=== PATIENT | male | born 1970 | race Caucasian/White ===

== ENCOUNTER 2022-12-26 18:36 | Inpatient (IN) ==
[2022-12-26] MEDS ORDERED: SODIUM CHLORIDE 0.9% 1,000 ML IV STA (19:27)
[2022-12-26] MEDS ORDERED: fentaNYL citrate PF 100 MCG/2 ML VIAL IV STA (19:27)
--- NOTE | 2022-12-26 19:31 | Emergency Department Note ---
Impression & Plan Cellulitis of scrotum, Left testicular pain, Hyperglycemia, Acute orchitis ED Provider Note HISTORY OF PRESENT ILLNESS: Patient is a 52-year-old male presenting with left testicle pain and left lower quadrant abdominal pain. Patient reports that for the last 5 days he has been having progressively worsening pain and swelling in his left testicle. He states that the pain developed all of a sudden 5 days ago. He reports that the pain was not initially intermittent in nature but since this morning has been constant and the swelling is the worst its been in the last 5 days. Reports some dysuria. Denies any hematuria. Denies any fevers. Denies any history of abdominal surgeries. Patient denies any injury to the testicles. Reports nausea but no vomiting. Denies any diarrhea. Reports his last bowel movement was 2 days ago. Denies any chest pain or shortness of breath. Patient also reports that he is diabetic and his blood sugar readings have been very high in the last 48 hours. Reports they have been over 300 in the last 12 hours. He has not taken any of his short acting insulin in that timeframe. ROS: as above PHYSICAL EXAM: Constitutional: Patient appears in no acute distress. HENT: Head: Normocephalic and atraumatic. Eyes: EOMI, PERRL Mouth/Throat: Mucous membranes moist. Neck: Trachea midline. Neck supple. Cardiovascular: Tachycardic with regular rhythm no murmurs, rubs or gallops. Intact distal pulses. Pulmonary/Chest: No respiratory distress. Breath sounds clear and equal bilaterally. No wheezes or rales. No chest wall tenderness to palpation. Abdominal: Abdomen soft, no tenderness, rebound or guarding. LLQ TTP : Circumcised male. Left testicle is swollen as compared to the right. Left testicle is significantly tender to palpation Musculoskeletal: No edema, tenderness or deformity noted. Skin: Warm and dry. No rash, erythema, pallor or cyanosis Psychiatric: Appropriate mood and affect for situation. Neurological: Alert and keenly responsive. CN II-XII grossly intact, moving all extremities equally and fully. MDM: - Vitals signs showed hypertension and tachycardia. - History obtained via patient. Patient presents with left testicle pain and left lower quadrant abdominal pain. Patient reports over the last 5 days he has been having progressively worsening pain and swelling in the left testicle. He states that the pain and swelling developed suddenly 5 days ago and is continued to worsen. He denies any hematuria, but reports intermittent dysuria over the last 5 days. Denies any fevers. Denies any history of abdominal surgeries. Denies any injury to the testicles. Reports nausea but no vomiting. Denies any diarrhea. Reports his last bowel movement was 2 days ago - Chronic conditions affecting care: DM-2 - Differential diagnoses include, but are not limited to: Testicular torsion; diverticulitis; ureteral calculi; UTI; epididymitis; scrotal cellulitis - Order placed for continuous cardiac monitoring. At this time, monitor showed rate of 112 bpm with normal sinus rhythm, per my interpretation. - External medical records reviewed. - Laboratory workup interpreted by myself showed leukocytosis (WBC 16.91); stable electrolytes; normal lactate; hyperglycemia (glucose 312); normal anion gap - US testes showed findings concerning for left-sided orchitis and scrotal wall thickening concerning for cellulitis - UA negative for infection - 2L NS ordered. Given IV zosyn for antibiotic coverage. - Patient initially given 50 mcg IV fentanyl for pain control. However on reassessment, he is still having significant pain. Given 4 mg of IV morphine. - CT abdomen/pelvis wo contrast ordered - Discussion was had with social problems specialist about patient's case and need for admission - Hospitalist consulted for admission - [facility] ASSESSMENT AND PLAN: Diagnosis: Left testicular pain; hyperglycemia; left scrotal cellulitis; left orchitis Plan: Admit Past Med/Surg History Social History Smoking Status: Former smoker Feels Safe at Home: Yes Allergies Allergies Allergy/AdvReac Type Severity Reaction Status Date / Time bee venom protein (honey bee) Allergy Severe Anaphylaxis Verified 12/26/22 19:50 Penicillins Allergy Intermediate HIVES/VOMIT Verified 12/26/22 19:50 ING Home Meds Home Medications Medication Instructions Recorded Confirmed atorvastatin 20 mg tablet 20 mg PO QAM 12/26/22 12/26/22 ibuprofen 200 mg tablet 400 mg PO DIRECTED PRN Pain 12/26/22 12/26/22 insulin aspar prot-insulin aspart 0 unit subcut BID 12/26/22 12/26/22 100 unit/mL (70-30) subcutaneous pen (Novolog Mix 70-30FlexPen U-100) lisinopril 5 mg tablet 5 mg PO QAM 12/26/22 12/26/22 mirtazapine 15 mg tablet 15 mg PO HS 12/26/22 12/26/22 pantoprazole 40 mg tablet,delayed 40 mg PO QAM 12/26/22 12/26/22 release pregabalin 75 mg capsule 75 mg PO BID 12/26/22 12/26/22 Results & Data (ED) Vital Signs Vital Signs - 24 hr 12/26/22 18:50 12/26/22 19:04 12/26/22 19:05 Temperature 37.2 C Temperature Source Temporal Artery Scan Pulse Rate 120 H 111 H Pulse Rate [Finger] 115 H Respiratory Rate 16 20 Respiratory Effort / Characteristics Non-Labored Spontaneous Non-Labored Spontaneous Respiratory Depth Normal Normal Blood Pressure 208/101 H Blood Pressure [Left Arm] 201/112 H Blood Pressure Mean 136 Blood Pressure Mean [Left Arm] 141 Blood Pressure Position [Left Arm] Pulse Oximetry 98 97 Oxygen Delivery Method Room Air Room Air Sepsis Recent Fever Within 48 Hours No Sepsis New/Unexplained Change in Mental Status No Sepsis Action Taken by Nursing No Action Required 12/26/22 19:34 12/26/22 21:05 Temperature Temperature Source Pulse Rate 115 H Pulse Rate [Finger] 112 H Respiratory Rate 27 H 20 Respiratory Effort / Characteristics Non-Labored Spontaneous Respiratory Depth Normal Blood Pressure Blood Pressure [Left Arm] 207/111 H Blood Pressure Mean Blood Pressure Mean [Left Arm] 143 Blood Pressure Position [Left Arm] Sitting Pulse Oximetry 98 93 Oxygen Delivery Method Room Air Room Air Sepsis Recent Fever Within 48 Hours Sepsis New/Unexplained Change in Mental Status Sepsis Action Taken by Nursing Laboratory Data 12/26/22 19:48 12/26/22 21:08 Lab Results 12/26/22 12/26/22 12/26/22 Range/Units 19:48 21:08 Unknown WBC 16.91 H (4.8-10.8) K/ul RBC 3.79 L (4.70-6.10) M/uL Hgb 10.5 L (14.0-18.0) g/dl Hct 31.4 L (42.0-52.0) % MCV 82.8 (80.0-100.0) fL MCH 27.7 (25.0-34.0) pg MCHC 33.4 (32.0-36.0) g/dL RDW Std Deviation 36.9 (36.4-46.3) fL RDW Coeff of Yoni 12.1 (11.5-14.5) % Plt Count 569 H (130-400) K/uL MPV 9.3 L (9.4-12.4) fL Immature Gran % (Auto) 0.4 % Neut % (Auto) 70.7 % Lymph % (Auto) 21.7 % [place]ole % (Auto) 5.7 % Eos % (Auto) 1.1 % Baso % (Auto) 0.4 % Neut # (Auto) 11.98 H (1.40-6.50) K/uL Lymph # (Auto) 3.67 H (1.20-3.40) K/uL Toole # (Auto) 0.96 H (0.11-0.59) K/uL Eos # (Auto) 0.18 (0.00-0.50) K/uL Baso # (Auto) 0.06 (0.00-0.20) K/uL Immature Gran # (Auto) 0.06 (0.01-0.20) K/uL Sodium 131 L (136-145) mmol/L Potassium TNP 4.3 Chloride 96 L (98-107) mmol/L Carbon Dioxide 29 (21-32) mmol/L Anion Gap 6 (3-11) BUN 25 H (6-23) mg/dl Creatinine 1.02 (0.6-1.4) mg/dl Est Cr Clr Drug Dosing 83.6 ml/min Est GFR ( Amer) 97.5 ml/min Est GFR (Non-Af Amer) 84.1 ml/min BUN/Creatinine Ratio 24.5 H (10-20) Glucose 312 H* (70-99(Fasting)) mg/dl Lactate 0.7 (0.4-2.0) mmol/L Calcium 9.2 (8.6-10.3) mg/dl Total Bilirubin 0.3 (0.2-1.0) mg/dl AST TNP 11 L ALT 12 (7-52) U/L Alkaline Phosphatase 149 H (34-104) U/L Total Protein 7.7 (6.0-8.3) gm/dl Albumin 3.0 L (3.4-5.0) gm/dl Globulin 4.7 H (2.5-4.0) gm/dl Albumin/Globulin Ratio 0.6 L (0.9-2) Urine Color Yellow Urine Appearance Clear (Clear) Urine pH 7.0 (4.5-7.5) Ur Specific [place] 1.017 (1.000-1.030) Urine Protein 3+ H (Negative) Urine Glucose (UA) 3+ H (Negative) Urine Ketones Negative (Negative) Urine Blood 2+ H (Negative) Urine Nitrite Negative (Negative) Urine Bilirubin Negative (Negative) Urine Urobilinogen Negative (Negative) Ur Leukocyte Esterase Negative (Negative) Urine WBC (Auto) 10-30 H (0-5) /hpf Urine RBC (Auto) 10-30 H (0-4) /hpf U Hyaline Cast (Auto) 1-5 (0-5) /lpf U Epithel Cells (Auto) 5-10 H (0-5) /lpf Urine Bacteria (Auto) Negative (Negative) Administered Medications Discontinued Medications Fentanyl Citrate (Fentanyl Citrate Pf 100 Mcg/2 Ml Vial) 50 mcg IV NOW STA Stop: 12/26/22 19:28 Last Admin: 12/26/22 19:44 Dose: 50 mcg Documented By: MARCELO Sodium Chloride (Nss) 1,000 mls @ 999 mls/hr IV .Q1H1M STA Stop: 12/26/22 20:27 Last Infusion: 12/26/22 21:14 Dose: Infused Documented By: Admin: 12/26/22 19:43 Dose: 999 mls/hr Documented By: MARCELO Insulin Human Regular (Novolin-R Insulin Per Unit Charge) 5 units SC NOW STA Stop: 12/26/22 21:51 Last Admin: 12/26/22 22:01 Dose: 5 units Documented By: MARCELO Co-signed By: ELLIOTT Morphine Sulfate (Morphine Sulfate 4 Mg/Ml 1 Ml Carp\\Vial) 4 mg IV NOW STA Stop: 12/26/22 20:38 Last Admin: 12/26/22 20:43 Dose: 4 mg Documented By: MARCELO Imaging Data Radiologist's Impression: Scrotum Ultrasound 12/26/22 19:27 Exam(s): US SCROTAL EXAM: US Scrotum CLINICAL HISTORY: Reason for exam: L testicle pain and swelling. TECHNIQUE: Real-time ultrasound of the scrotum with color Doppler and image documentation. COMPARISON: None. FINDINGS: Right testicle: There is increased flow within the right testis suggestive of orchitis. The right testis measures 3.5 x 2.5 x 2.6 cm. No torsion. Left testicle: The left testis measures 2.8 x 2.5 x 2.8 cm. No torsion. Epididymides: Within the right epididymis there is a round anechoic structure consistent with epididymal cyst measuring 0.4 x 0.3 x 0.5 cm. Scrotum: There is scrotal wall thickening with increased vascularity concerning for cellulitis, left more than right. There is mild left- sided hydrocele. There is minimal right-sided hydrocele. IMPRESSION: 1. Findings concerning for left-sided orchitis. Mild bilateral hydroceles, left more than right. 2. Scrotal wall thickening concerning for cellulitis, clinical correlation recommended. Electronically signed by: Elza Hancock MD 12/26/22 21:18 PM Discharge Plan Visit Data Chief Complaint: Testicular Pain Stated Complaint: TESTCULAR SWELLING, ABD PAIN ED Provider: Viry Barbosa Discharge Problem: Cellulitis of scrotum, Left testicular pain, Hyperglycemia, Acute orchitis Patient Disposition: Home - Self-Care Forms Stand Alone Forms: [facility], Important Visit Information Prescriptions Prescriptions: No Action atorvastatin 20 mg tablet 20 mg PO QAM pantoprazole 40 mg tablet,delayed release (DR/EC) 40 mg PO QAM ibuprofen 200 mg Tablet 400 mg PO DIRECTED PRN (Reason: Pain) lisinopril 5 mg tablet 5 mg PO QAM mirtazapine 15 mg tablet 15 mg PO HS insulin asp prt-insulin aspart [Novolog Mix 70-30FlexPen U-100] 100 unit/mL (70-30) insulin pen 0 unit SUBCUT BID Rx Instructions: PER PT "DEPENDS ON BSG, RX BSG > 120" pregabalin 75 mg capsule 75 mg PO BID Referrals Referrals: Magen Ramirez PA-C [Primary Care Provider] -
[2022-12-26] MEDS ORDERED: MoRPHine SULFATE 4 MG/ML 1 ML CARP\\VIAL IV STA (20:37)
[2022-12-26 20:43] LABS: Basophils # (auto) 0.06 K/uL (0.00-0.20); Basophils % (auto) 0.4 %; Eosinophils # (auto) 0.18 K/uL (0.00-0.50); Eosinophils % (auto) 1.1 %; Hematocrit (blood only) 31.4 % (42.0-52.0); Hemoglobin 10.5 g/dl (14.0-18.0); Immature Granulocytes # (auto) 0.06 K/uL (0.01-0.20); Immature Granulocytes % (auto) 0.4 %; Lymphocytes # (auto) 3.67 K/uL (1.20-3.40); Lymphocytes % (auto) 21.7 %; Mean Corpuscular Hemoglobin 27.7 pg (25.0-34.0); Mean Corpuscular Hgb Conc 33.4 g/dL (32.0-36.0); Mean Corpuscular Volume 82.8 fL (80.0-100.0); Mean Platelet Volume 9.3 fL (9.4-12.4); Monocytes # (auto) 0.96 K/uL (0.11-0.59); Monocytes % (auto) 5.7 %; Neutrophils # (auto) 11.98 K/uL (1.40-6.50); Neutrophils % (auto) 70.7 %; Platelet Count 569 K/uL (130-400); RDW Coefficient of Variation 12.1 % (11.5-14.5); RDW Standard Deviation 36.9 fL (36.4-46.3); Red Blood Count 3.79 M/uL (4.70-6.10); White Blood Count 16.91 K/ul (4.8-10.8)
[2022-12-26 20:47] LABS: Appearance Urine Clear (Clear); Bacteria Urine Automated Negative (Negative); Bilirubin Urine Negative (Negative); Blood Urine 2+ (Negative); Color Urine Yellow; Glucose Urine UA 3+ (Negative); Ketones Urine Negative (Negative); Leukocyte Esterase Urine Negative (Negative); Nitrite Urine Negative (Negative); Protein Urine 3+ (Negative); Specific Gravity Urine 1.017 (1.000-1.030); Urobilinogen Urine Negative (Negative)
[2022-12-26 21:12] LABS: Alanine Aminotransferase 12 U/L (7-52); Albumin Globulin Ratio 0.6 (0.9-2); Alkaline Phosphatase 149 U/L (34-104); Anion Gap 6 (3-11); BUN Creatinine Ratio 24.5 (10-20); Bilirubin,Total 0.3 mg/dl (0.2-1.0); Blood Urea Nitrogen 25 mg/dl (6-23); Calcium 9.2 mg/dl (8.6-10.3); Carbon Dioxide 29 mmol/L (21-32); Chloride 96 mmol/L (98-107); Creatinine Clr Calc Pharmacy 83.6 ml/min; Est GFR (African American) 97.5 ml/min; Est GFR (Non-African American) 84.1 ml/min; Globulin 4.7 gm/dl (2.5-4.0); Glucose 312 mg/dl (70-99(Fasting)); Sodium 131 mmol/L (136-145); Total Protein 7.7 gm/dl (6.0-8.3)
--- NOTE | 2022-12-26 21:19 | Ultrasound Report ---
Exam(s): US SCROTAL EXAM: US Scrotum CLINICAL HISTORY: Reason for exam: L testicle pain and swelling. TECHNIQUE: Real-time ultrasound of the scrotum with color Doppler and image documentation. COMPARISON: None. FINDINGS: Right testicle: There is increased flow within the right testis suggestive of orchitis. The right testis measures 3.5 x 2.5 x 2.6 cm. No torsion. Left testicle: The left testis measures 2.8 x 2.5 x 2.8 cm. No torsion. Epididymides: Within the right epididymis there is a round anechoic structure consistent with epididymal cyst measuring 0.4 x 0.3 x 0.5 cm. Scrotum: There is scrotal wall thickening with increased vascularity concerning for cellulitis, left more than right. There is mild left- sided hydrocele. There is minimal right-sided hydrocele. IMPRESSION: 1. Findings concerning for left-sided orchitis. Mild bilateral hydroceles, left more than right. 2. Scrotal wall thickening concerning for cellulitis, clinical correlation recommended. Electronically signed by: Elza Hancock MD 12/26/22 21:18 PM
[2022-12-26 21:39] LABS: Potassium 4.3 mmol/L (3.5-5.1)
[2022-12-26] MEDS ORDERED: NovoLIN-R INSULIN PER UNIT CHARGE SC STA (21:50)
[2022-12-26] MEDS ORDERED: PIPERACILLIN/TAZOBACTAM 4.5 GM/100 ML BAG IV ONE (21:50)
[2022-12-26] MEDS ORDERED: SODIUM CHLORIDE 0.9% 2,000 ML IV ONE (21:52)
[2022-12-26] MEDS ORDERED: HYDROmorphone INJ 0.5 MG/0.5 ML SYR IV STA (23:12)
--- NOTE | 2022-12-27 00:09 | CT Scan Report ---
Exam(s): CT ABDOMEN + PELVIS Without Contrast EXAM: CT Abdomen and Pelvis Without Intravenous Contrast CLINICAL HISTORY: Reason for exam: LLQ pain and left testicle pain. TECHNIQUE: Axial computed tomography images of the abdomen and pelvis without intravenous contrast. CTDI is 21.01 mGy and DLP is 1042.65 mGy-cm. Automated exposure control was utilized for the study. A dose lowering technique was utilized adhering to the principles of ALARA. COMPARISON: None. FINDINGS: Lung bases: Unremarkable. No mass. No consolidation. Heart: Unremarkable. No significant pericardial effusion. Normal cardiac size. ABDOMEN: Liver: Unremarkable. Gallbladder and bile ducts: Unremarkable. No calcified stones. No ductal dilation. Pancreas: Unremarkable. No ductal dilation. Spleen: Unremarkable. No splenomegaly. Adrenals: Unremarkable. No mass. Kidneys and ureters: Mild bilateral perinephric stranding. Mild stranding along the left renal pelvis and left ureter with mild fullness of the wall. No stone along the trajectory of the left ureter. Cannot exclude infectious process or left pyelonephritis. Stomach and bowel: Increased fecal debris within the colon consistent with constipation. No obstruction. No mucosal thickening. PELVIS: Appendix: Nonvisualized appendix with surgical clips by the cecum suggestive of previous appendectomy. Bladder: Slightly over distended urinary bladder with mild surrounding stranding, cannot exclude cystitis. No stones. Reproductive: Mild prostate enlargement. ABDOMEN and PELVIS: Intraperitoneal space: Unremarkable. No free air. No significant fluid collection. Bones/joints: No acute fracture. No dislocation. Soft tissues: Small bilateral fat-containing bilateral inguinal hernias containing fat. Vasculature: Mild atherosclerotic disease of aorta with no aneurysm. Lymph nodes: Unremarkable. No enlarged lymph nodes. IMPRESSION: 1. Constipation. Status post appendectomy. No bowel obstruction pain 2. Bilateral perinephric stranding with possible cystitis and fullness of the urothelium on the left which may indicate infectious process. Cannot exclude left pyelonephritis. If indicated, these findings may be further assessed with urinalysis. Electronically signed by: Elza Hancock MD 12/27/22 00:08 AM
[2022-12-27] MEDS ORDERED: VANCOMYCIN CONSULT ACTIVE PRN (01:25)
[2022-12-27] MEDS ORDERED: VANCOMYCIN HCL 1,000 MG in SODIUM CHLORIDE 0.9% 250 ML IV SCH (01:30)
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
[2022-12-27] MEDS: SODIUM CHLORIDE 0.9% 1,000 ML IV SCH ×2 (01:52→09:02)
[2022-12-27] MEDS ORDERED: VANCOMYCIN HCL 1,500 MG in SODIUM CHLORIDE 0.9% 500 ML IV ONE (02:00)
[2022-12-27] MEDS: HYDROmorphone INJ 0.5 MG/0.5 ML SYR IV PRN ×5 (03:49→21:11)
[2022-12-27] MEDS ORDERED: PHARMACY GLYCEMIC MGMT CONSULT PRN (04:13)
[2022-12-27] MEDS ORDERED: GLUCOSE 10 TAB/TUBE PO PRN (04:13)
[2022-12-27] MEDS ORDERED: GLUCOSE 40% GEL 15 GM TUBE PO PRN (04:13)
[2022-12-27] MEDS ORDERED: DEXTROSE 50% 50 ML SYRINGE IV PRN (04:13)
[2022-12-27] MEDS ORDERED: LABETALOL HCL IV 5 MG/ML 20ML IV PRN (04:13)
[2022-12-27] MEDS ORDERED: POLYETHYLENE (MIRALAX) 17 GM PACK PO PRN (04:13)
[2022-12-27] MEDS ORDERED: NITROGLYCERIN SL 0.4 MG/TAB TAB SL PRN (04:13)
[2022-12-27] MEDS ORDERED: CARBOHYDRATES FOR HYPOGLYCEMIA PO PRN (04:13)
[2022-12-27] MEDS ORDERED: GLUCAGON FOR INJ 1 MG VIAL SQ PRN (04:13)
[2022-12-27] MEDS: INSULIN ASPART PER UNIT CHARGE SC SCH ×4 (06:00→21:11)
[2022-12-27] MEDS: ERTAPENEM SODIUM 1,000 MG in SYRINGE 0 ML IV SCH (06:01)
[2022-12-27] MEDS ORDERED: Nursing to Pharmacy Communication SCH (06:15)
[2022-12-27] MEDS: PANTOprazole 40 MG TAB PO SCH (06:27)
[2022-12-27 08:17] LABS: Basophils # (auto) 0.05 K/uL (0.00-0.20); Basophils % (auto) 0.3 %; Eosinophils # (auto) 0.18 K/uL (0.00-0.50); Eosinophils % (auto) 1.1 %; Hematocrit (blood only) 29.7 % (42.0-52.0); Immature Granulocytes # (auto) 0.06 K/uL (0.01-0.20); Immature Granulocytes % (auto) 0.4 %; Lymphocytes # (auto) 2.87 K/uL (1.20-3.40); Lymphocytes % (auto) 17.3 %; Mean Corpuscular Hemoglobin 27.9 pg (25.0-34.0); Mean Corpuscular Hgb Conc 33.7 g/dL (32.0-36.0); Mean Platelet Volume 8.6 fL (9.4-12.4); Monocytes # (auto) 0.95 K/uL (0.11-0.59); Monocytes % (auto) 5.7 %; Neutrophils # (auto) 12.49 K/uL (1.40-6.50); Neutrophils % (auto) 75.2 %; Platelet Count 499 K/uL (130-400); RDW Coefficient of Variation 11.9 % (11.5-14.5); RDW Standard Deviation 35.9 fL (36.4-46.3); Red Blood Count 3.58 M/uL (4.70-6.10)
[2022-12-27 08:40] LABS: BUN Creatinine Ratio 20.3 (10-20); Calcium 8.4 mg/dl (8.6-10.3); Creatinine Clr Calc Pharmacy 107.9 ml/min; Est GFR (African American) 119.7 ml/min; Est GFR (Non-African American) 103.2 ml/min; Magnesium 1.7 mg/dl (1.7-2.4); Potassium 3.8 mmol/L (3.5-5.1); Troponin I High Sensitivity 12.1 pg/ml (0-20)
[2022-12-27] MEDS ORDERED: PANTOprazole 40 MG TAB PO SCH (09:00)
[2022-12-27] MEDS: lisinopril 5 MG TAB PO SCH (09:17)
[2022-12-27] MEDS: ATORVASTATIN 20 MG TAB PO SCH (09:17)
[2022-12-27] MEDS: PREGABALIN 75 MG CAP PO SCH ×2 (09:17→21:11)
[2022-12-27] MEDS: LANTUS PER UNIT CHARGE SQ SCH ×2 (09:17→21:10)
[2022-12-27] MEDS ORDERED: PROMETHAZINE HCL 6.25 MG in SODIUM CHLORIDE 0.9% 50 ML IV PRN (09:29)
--- NOTE | 2022-12-27 09:43 | Urology Consultation ---
Date of Consultation December 27, 2022 Assessment & Plan (1) Acute orchitis: (2) Left testicular pain: Plan Clinical picture is suspicious for left epididymoorchitis. Would recommend coverage with broad-spectrum antibiotics. Agree with urine culture. Once culture data becomes available, antibiotics can be narrowed to an oral option. I do not appreciate any fluctuant areas or crepitus that would require surgical intervention. Would recommend ensuring that he is emptying his bladder well with PVR after he voids. If he is retaining urine, he may require Casey catheter placement or CIC. Would recommend working on glycemic control as this could exacerbate infection. Urology will follow. History of Present Illness Reason for Consultation: Epididymoorchitis Attending Physician: Jacobo Norris MD History of Present Illness This is a 52-year-old male with history of diabetes who presented to the emergency department with scrotal swelling and pain. He reports that he was recently admitted at an outside hospital for hyperglycemia. He describes an abscess on the back of his head that was lanced at that time. Urology was consulted regarding the scrotal swelling and pain. He reports this started approximately 5 days prior to admission. He denies any inciting trauma. He notes that he has had some urinary straining and sense of incomplete emptying of the bladder. He thinks he may have had some swelling in this area before. He has no history of urologic surgery. Lab work in the ED was notable for leukocytosis (WBC 16.91), he initially had hyperglycemia (glucose 312), creatinine was 1.02. A urinalysis demonstrated 2+ blood, negative leukocyte esterase, negative nitrites, negative bacteria. Urine culture was obtained and is currently pending. A scrotal ultrasound was performed on 12/26/2022. I independently reviewed these images. Both testicles are in normal position. There is some hyperemia of the left testis with some reactive fluid on the left side. There is good blood flow to the right testicle. No testicular masses are appreciated. He also had a CT scan of the abdomen and pelvis performed on 12/26/2022. This demonstrated some perinephric stranding. No focal obstructions were seen for either kidney. His prostate was mildly enlarged. His bladder was fairly capacious. Allergies Allergy/AdvReac Type Severity Reaction Status Date / Time bee venom protein (honey bee) Allergy Severe Anaphylaxis Verified 12/26/22 19:50 Penicillins Allergy Intermediate HIVES/VOMIT Verified 12/26/22 19:50 ING Home Medications Medication Instructions Recorded Confirmed Type atorvastatin 20 mg tablet 20 mg PO QAM 12/26/22 12/26/22 History ibuprofen 200 mg tablet 400 mg PO DIRECTED PRN Pain 12/26/22 12/26/22 History insulin aspar prot-insulin aspart 0 unit subcut BID 12/26/22 12/26/22 History 100 unit/mL (70-30) subcutaneous pen (Novolog Mix 70-30FlexPen U-100) lisinopril 5 mg tablet 5 mg PO QAM 12/26/22 12/26/22 History mirtazapine 15 mg tablet 15 mg PO HS 12/26/22 12/26/22 History pantoprazole 40 mg tablet,delayed 40 mg PO QAM 12/26/22 12/26/22 History release pregabalin 75 mg capsule 75 mg PO BID 12/26/22 12/26/22 History Patient History Social History Smoking Status: Former smoker Tobacco Type: Cigarettes Hx Alcohol Use: Yes Hx Substance Use: No Preferred Language: Lao Communication Ability: Effective Silviculture Professor Required: No Beliefs That Will Affect Care: None Current Living Situation: Significant Other Other Information That Helps Us Care for You: No Feels Safe at Home: Yes Safety Concerns: Feels Safe At This Time Assistive Devices: None Review of Systems Review of Systems: 12 point review of systems negative exce pt for otherwise indicated. Physical Exam Constitutional: well developed and well nourished; no acute distress Eyes: + anicteric sclerae; pupils not irregula r Respiratory: normal respiratory effort; no respiratory distress, does not use accessory muscles and no cough Cardiovascular: well perfused Gastrointestinal (Abdomen): Inspection/Auscultation: abdomen normal to inspection; abdomen not distended Musculoskeletal: Extremities: extremities normal to inspection Skin: normal turgor; no rashes and no lesions Neurologic: moves all extremities and awake Psychiatric: Orientation: alert and oriented x 3 Genitourinary: No inguinal adenopathy bilaterally. Left hemiscrotum is enlarged and slightly erythematous. This area is tender to palpation. I do not appreciate any fluc tuance or crepitus. There is some penile edema. Right testis is normal and minimally tender. Results & Data Vital Signs (Past 12 Hours) Vital Signs Temp Pulse Pulse Resp BP Pulse Ox O2 Del Method 12/27/22 06:59 109 H 12/27/22 06:14 36.9 C 106 H 20 164/93 H 96 Room Air 12/27/22 05:28 95 H 20 180/112 H 95 Room Air 12/27/22 04:26 101 H 20 175/110 H 94 Room Air 12/27/22 03:15 103 H 20 173/92 H 96 Room Air 12/27/22 01:43 108 H 20 171/96 H 96 Room Air 12/26/22 23:03 113 H 20 179/103 H 96 Room Air 12/26/22 23:00 104 H PG Care Time/CCT Total # of Minutes Spent Total Time Spent with Patient: Total time spent is greater than 50% in coordination of care (as documented) at patient's floor/unit and/or counseling patient: Coding Level of Care Code 22550 IN/OBS CONSULT LVL 4,60M Diagnoses Acute orchitis N45.2 Left testicular pain N50.812
--- NOTE | 2022-12-27 11:37 | Pharmacy Report ---
Pharmacy PK ABX Note - Date of Service December 27, 2022 - Assessment and Plan Assessment 52 year old M receiving ertapenem and vancomycin for treatment of scrotal cellulitis, epididymoorchitis. Pertinent microbiologic data includes: urine culture pending Plan Vancomycin * Loading dose: 1500 mg IV x 1 * Maintenance dose: 1250 mg IV every 12 hours * Regimen is predicted to achieve target AUC/ROZ of 400-600 mg/L.hr * Random level ordered for tomorrow after 0800 Pharmacy will continue to follow and will adjust dose/frequency as necessary. Thank you. Pharmacy has transitioned to AUC monitoring for vancomycin. AUC/ROZ is the preferred PK/PD target and is associated with decreased risk of nephrotoxicity compared to traditional trough targets.
[2022-12-27] MEDS: VANCOMYCIN HCL 1,250 MG in SODIUM CHLORIDE 0.9% 250 ML IV SCH (12:19)
--- NOTE | 2022-12-27 14:48 | Communication Note ---
Date of Service: December 27, 2022 Patient seen and examined at bedside. He reports pain and discomfort in the scrotum patient Urine culture does not show any growth Continue on ertapenem and vancomycin. Urology recommendation appreciated. Bladder scan every 8 hours for postvoid residual.
[2022-12-27] MEDS ORDERED: traZODone HCL 50 MG TAB PO ONE (20:08)
[2022-12-27] MEDS: MIRTAZAPINE TAB 15 MG TAB PO SCH (21:11)
[2022-12-28] MEDS: HYDROmorphone INJ 0.5 MG/0.5 ML SYR IV PRN ×6 (00:28→20:43)
[2022-12-28] MEDS: VANCOMYCIN HCL 1,250 MG in SODIUM CHLORIDE 0.9% 250 ML IV SCH (00:28)
[2022-12-28] MEDS: PANTOprazole 40 MG TAB PO SCH (04:52)
[2022-12-28] MEDS: ERTAPENEM SODIUM 1,000 MG in SYRINGE 0 ML IV SCH (04:53)
[2022-12-28] MEDS: ATORVASTATIN 20 MG TAB PO SCH (08:29)
[2022-12-28] MEDS: PREGABALIN 75 MG CAP PO SCH ×2 (08:29→20:43)
[2022-12-28] MEDS: lisinopril 5 MG TAB PO SCH (08:29)
[2022-12-28] MEDS: INSULIN ASPART PER UNIT CHARGE SC SCH ×4 (08:30→20:43)
[2022-12-28] MEDS: LANTUS PER UNIT CHARGE SQ SCH ×2 (08:30→20:42)
[2022-12-28 08:49] LABS: Estimated Average Glucose 364 mg/dl; Hemoglobin A1C 14.3 % (4.5-5.6)
[2022-12-28 09:15] LABS: Creatinine Clr Calc Pharmacy 98.4 ml/min; Est GFR (African American) 114.5 ml/min; Est GFR (Non-African American) 98.8 ml/min
--- NOTE | 2022-12-28 10:14 | Pharmacy Report ---
Pharmacy PK ABX Note - Date of Service December 28, 2022 - Assessment and Plan Assessment 12/28: * Random vancomycin level this AM was ~15 mcg/ml - based upon level current vancomycin dosing is appropriate to continue 12/27: * 52 year old M receiving ertapenem and vancomycin for treatment of scrotal cellulitis, epididymoorchitis. * Pertinent microbiologic data includes: urine culture pending Plan Vancomycin * Continue vancomycin 1250 mg iv q 12 hr * Dosing estimated to achieve AUC/ROZ of 400-600 * Will consider rechecking another level in next 2-3 days if continued Pharmacy will continue to follow and will adjust dose/frequency as necessary. Thank you. Pharmacy has transitioned to AUC monitoring for vancomycin. AUC/ROZ is the preferred PK/PD target and is associated with decreased risk of nephrotoxicity compared to traditional trough targets.
[2022-12-28] MEDS ORDERED: DOXYCYCLINE HYCLATE 100 MG CAP PO SCH (10:15)
--- NOTE | 2022-12-28 10:22 | Pharmacy Report ---
Pharmacy Glycemic Short Note 2 - Date of Service December 28, 2022 - Glycemic Short BSG Results (Last 24 hours): 12/27/22 12/27/22 12/27/22 14:12 16:44 20:07 POC Glucose 164 H 174 H 165 H 12/28/22 08:14 POC Glucose 150 H OUTPATIENT ANTIDIABETIC REGIMEN: * Novolog mix 70/30 - 30 units bidm - per external fill hx ASSESSMENT: * 52 year old admitted with scrotal cellulitis, started on broad spectrum antibiotics. Pharmacy consulted for glycemic management. Discussed with patient home insulin dosing and he reports taking insulin per scale provided by his provider, however he does not remember scale. He was able to tell me if BSG >300 he takes 35 units and BSG>350 he takes 40 units. * Started patient with stress of 2 dosing for insulin, received total of 33 units of insulin yesterday. * Fasting BSG 150, reasonable to continue same basal for now. Anticipate insulin needs to increase once PO intake improves. A1c ~14.3% on admission. PLAN FOR INPATIENT GLYCEMIC CONTROL: * Hold outpatient oral diabetes medications * Basal insulin * Lantus 15 units SQ BID * Bolus insulin * NovoLog per scale ACHS or Q6hrs while NPO * Goal Range: Low 110 mg/dL - High 140 mg/dL * Correction Factor: 30 mg/dL/unit * Nutritional / Prandial insulin per carb ratio of 1 unit per 10 grams CHO consumed
--- NOTE | 2022-12-28 12:33 | Urology Progress Note ---
Date of Service December 28, 2022 Assessment & Plan (1) Acute orchitis: (2) Left testicular pain: Plan Left epididymoorchitis/scrotal cellulitis - gradually improving with antibiotics. Remains afebrile and hemodynamically stable. No fluctuant areas or crepitus that would require surgical intervention appreciated on exam. Would recommend ensuring that he is emptying his bladder well with PVR after he voids. If he is retaining urine, he may require Casey catheter placement or CIC. Continue supportive care and antibiotic therapy. He can try a cold pack to help with pain and scrotal elevation to help with any edema. Urology will follow. Admission and Anticipated Discharge Date Admission Date: December 27, 2022 Subjective Pt examined at bedside this AM. Awake, resting in bed on arrival. No acute distress. No fevers. Still with scrotal/testicular pain and left groin pain. Voiding spontaneously. Denies hematuria or dysuria. Review of Systems Constitutional: as per Subjective / HPI Genitourinary: + as per Subjective / HPI Physical Exam Constitutional: well developed and well nourished; no acute distress Respiratory: normal respiratory effort; no respiratory distress and no labored breathing Gastrointestinal (Abdomen): Inspection/Auscultation: abdomen normal to inspection; abdomen not distended Neurologic: moves all extremities and awake Psychiatric: Orientation: alert and oriented x 3 Genitourinary: Left hemiscrotum is enlarged and slightly erythematous. This area is tender to palpation. No fluctuance or crepitus appreciated. There is some penile edema. Right testis minimally tender. No open areas or drainage. Results & Data Vital Signs (Past 12 Hours) Vital Signs Temp Pulse Pulse Resp BP Pulse Ox O2 Del Method 12/28/22 11:46 36.8 C 99 H 16 128/78 97 Room Air 12/28/22 07:59 36.8 C 101 H 16 137/78 97 Room Air 12/28/22 07:24 92 H 12/28/22 03:17 37.0 C 101 H 18 134/76 97 Room Air PG Care Time/CCT Total # of Minutes Spent Total Time Spent with Patient: Total time spent is greater than 50% in coordination of care (as documented) at patient's floor/unit and/or counseling patient: Coding Level of Care Code 76421 SUB INP/OBS CARE 2/35MIN Diagnoses Acute orchitis N45.2 Left testicular pain N50.812
--- NOTE | 2022-12-28 13:47 | Hospitalist Progress Note ---
Date of Service December 28, 2022 Assessment & Plan (1) Cellulitis of scrotum: Plan: 52-year-old male with past med history significant for type 2 diabetes diabetic retinopathy, diabetic neuropathy, COPD, hypertension, GERD, cannabis use with anxiety disorder, PTSD, history of depression with suicidal ideation, antisocial personality disorder presents with left scrotal swelling going on since last Wednesday. Cellulitis of the scrotum Left-sided epididymoorchitis Patient presented to the hospital with left scrotal swelling for several days No history of recent UTI. Not sexually active for last 2 years Scrotal ultrasound shows findings consistent with left-sided orchitis and scrotal wall thickening concerning for cellulitis CT abdomen pelvis personally reviewed; concern for possible cystitis. Urine culture no growth Was initially on ertapenem and Vanco. Switched over to ceftriaxone and doxycycline Continue bladder scan postvoid We will get infectious disease eval as patient reports increasing scrotal swelling despite being on antibiotics Appreciate urology recommendation Type II diabetes home NovoLog 70/30 mix on hold On Lantus 15 units twice daily as patient currently n.p.o. Sliding scale Glycemic pharmacy consult Hypertension Continue lisinopril Elevated Labetalol as needed Hyperlipidemia On statin GERD On Protonix Diabetic neuropathy On pregabalin Depression Anxiety PTSD On Remeron DVT prophylaxis SCDs for now Disposition med/telemetry Full code Please note the above document was generated using voice recognition software. It may contain grammatical, syntax or spelling errors. Any formal questions or concerns about the content, text or information contained within the body of this dictation should be directly addressed to the provider for clarification Admission and Anticipated Discharge Date Admission Date: December 27, 2022 Subjective Patient seen and examined at bedside. He reports that the swelling has actually progressed compared to yesterday. He reports increasing pain. Review of Systems Review of Systems: All systems reviewed & are unremarkable except as noted in Subjective Physical Exam Physical Exam: General- Not in distress Head- atraumatic Eyes- PERRL. ENT- oropharynx clear Neck- supple, no JVD. Lungs- clear to auscultation no wheezing or crackles. Heart- regular rhythm; no murmur, no gallop. Abdomen- normal bowel sounds, soft, diffuse discomfort, no distension. Extremities- no pretibial edema, no erythema seen. Neuro- alert, oriented x 3; PERRL, no facial palsy; no dysarthria; moves extremities. : Left scrotum swollen and hard and tender to palpation. Results & Data Results & Data Vital Signs (Past 12 Hours) Vital Signs Temp Pulse Pulse Resp BP Pulse Ox O2 Del Method 12/28/22 11:46 36.8 C 99 H 16 128/78 97 Room Air 12/28/22 07:59 36.8 C 101 H 16 137/78 97 Room Air 12/28/22 07:24 92 H 12/28/22 03:17 37.0 C 101 H 18 134/76 97 Room Air Laboratory Results Laboratory Results WBC 16.60 K/ul (4.8-10.8) H 12/27/22 07:54 RBC 3.58 M/uL (4.70-6.10) L 12/27/22 07:54 Hgb 10.0 g/dl (14.0-18.0) L 12/27/22 07:54 Hct 29.7 % (42.0-52.0) L 12/27/22 07:54 MCV 83.0 fL (80.0-100.0) 12/27/22 07:54 MCH 27.9 pg (25.0-34.0) 12/27/22 07:54 MCHC 33.7 g/dL (32.0-36.0) 12/27/22 07:54 RDW Std Deviation 35.9 fL (36.4-46.3) L 12/27/22 07:54 RDW Coeff of Yoni 11.9 % (11.5-14.5) 12/27/22 07:54 Plt Count 499 K/uL (130-400) H 12/27/22 07:54 MPV 8.6 fL (9.4-12.4) L 12/27/22 07:54 Immature Gran % (Auto) 0.4 % 12/27/22 07:54 Neut % (Auto) 75.2 % 12/27/22 07:54 Lymph % (Auto) 17.3 % 12/27/22 07:54 Drew % (Auto) 5.7 % 12/27/22 07:54 Eos % (Auto) 1.1 % 12/27/22 07:54 Baso % (Auto) 0.3 % 12/27/22 07:54 Neut # (Auto) 12.49 K/uL (1.40-6.50) H 12/27/22 07:54 Lymph # (Auto) 2.87 K/uL (1.20-3.40) 12/27/22 07:54 Drew # (Auto) 0.95 K/uL (0.11-0.59) H 12/27/22 07:54 Eos # (Auto) 0.18 K/uL (0.00-0.50) 12/27/22 07:54 Baso # (Auto) 0.05 K/uL (0.00-0.20) 12/27/22 07:54 Immature Gran # (Auto) 0.06 K/uL (0.01-0.20) 12/27/22 07:54 Sodium 137 mmol/L (136-145) 12/27/22 07:54 Potassium 3.8 mmol/L (3.5-5.1) 12/27/22 07:54 Chloride 104 mmol/L (98-107) 12/27/22 07:54 Carbon Dioxide 28 mmol/L (21-32) 12/27/22 07:54 Anion Gap 5 (3-11) 12/27/22 07:54 BUN 16 mg/dl (6-23) 12/27/22 07:54 Creatinine 0.88 mg/dl (0.6-1.4) 12/28/22 08:23 Est Cr Clr Drug Dosing 98.4 ml/min 12/28/22 08:23 Est GFR ( Amer) 114.5 ml/min 12/28/22 08:23 Est GFR (Non-Af Amer) 98.8 ml/min 12/28/22 08:23 BUN/Creatinine Ratio 20.3 (10-20) H 12/27/22 07:54 Glucose 146 mg/dl (70-99(Fasting)) H 12/27/22 07:54 POC Glucose 137 mg/dl (70-99) H 12/28/22 12:02 Estimat Average Glucose 364 mg/dl 12/27/22 07:54 Hemoglobin A1c 14.3 % (4.5-5.6) H 12/27/22 07:54 Lactate 0.7 mmol/L (0.4-2.0) 12/26/22 21:08 Calcium 8.4 mg/dl (8.6-10.3) L 12/27/22 07:54 Magnesium 1.7 mg/dl (1.7-2.4) 12/27/22 07:54 Total Bilirubin 0.3 mg/dl (0.2-1.0) 12/26/22 19:48 AST 11 U/L (13-39) L 12/26/22 21:08 ALT 12 U/L (7-52) 12/26/22 19:48 Alkaline Phosphatase 149 U/L (34-104) H 12/26/22 19:48 Troponin I High Sens 12.1 pg/ml (0-20) 12/27/22 07:54 Total Protein 7.7 gm/dl (6.0-8.3) 12/26/22 19:48 Albumin 3.0 gm/dl (3.4-5.0) L 12/26/22 19:48 Globulin 4.7 gm/dl (2.5-4.0) H 12/26/22 19:48 Albumin/Globulin Ratio 0.6 (0.9-2) L 12/26/22 19:48 Urine Color Yellow 12/26/22 Unknown Urine Appearance Clear (Clear) 12/26/22 Unknown Urine pH 7.0 (4.5-7.5) 12/26/22 Unknown Ur Specific [place] 1.017 (1.000-1.030) 12/26/22 Unknown Urine Protein 3+ (Negative) H 12/26/22 Unknown Urine Glucose (UA) 3+ (Negative) H 12/26/22 Unknown Urine Ketones Negative (Negative) 12/26/22 Unknown Urine Blood 2+ (Negative) H 12/26/22 Unknown Urine Nitrite Negative (Negative) 12/26/22 Unknown Urine Bilirubin Negative (Negative) 12/26/22 Unknown Urine Urobilinogen Negative (Negative) 12/26/22 Unknown Ur Leukocyte Esterase Negative (Negative) 12/26/22 Unknown Urine WBC (Auto) 10-30 /hpf (0-5) H 12/26/22 Unknown Urine RBC (Auto) 10-30 /hpf (0-4) H 12/26/22 Unknown U Hyaline Cast (Auto) 1-5 /lpf (0-5) 12/26/22 Unknown U Epithel Cells (Auto) 5-10 /lpf (0-5) H 12/26/22 Unknown Urine Bacteria (Auto) Negative (Negative) 12/26/22 Unknown Random Vancomycin 15.3 mcg/ml (10-20) 12/28/22 08:23 Impressions Scrotum Ultrasound 12/26/22 19:27 Exam(s): US SCROTAL EXAM: US Scrotum CLINICAL HISTORY: Reason for exam: L testicle pain and swelling. TECHNIQUE: Real-time ultrasound of the scrotum with color Doppler and image documentation. COMPARISON: None. FINDINGS: Right testicle: There is increased flow within the right testis suggestive of orchitis. The right testis measures 3.5 x 2.5 x 2.6 cm. No torsion. Left testicle: The left testis measures 2.8 x 2.5 x 2.8 cm. No torsion. Epididymides: Within the right epididymis there is a round anechoic structure consistent with epididymal cyst measuring 0.4 x 0.3 x 0.5 cm. Scrotum: There is scrotal wall thickening with increased vascularity concerning for cellulitis, left more than right. There is mild left- sided hydrocele. There is minimal right-sided hydrocele. IMPRESSION: 1. Findings concerning for left-sided orchitis. Mild bilateral hydroceles, left more than right. 2. Scrotal wall thickening concerning for cellulitis, clinical correlation recommended. Electronically signed by: Elza Hancock MD 12/26/22 21:18 PM Abdomen/Pelvis CT 12/26/22 20:55 Exam(s): CT ABDOMEN + PELVIS Without Contrast EXAM: CT Abdomen and Pelvis Without Intravenous Contrast CLINICAL HISTORY: Reason for exam: LLQ pain and left testicle pain. TECHNIQUE: Axial computed tomography images of the abdomen and pelvis without intravenous contrast. CTDI is 21.01 mGy and DLP is 1042.65 mGy-cm. Automated exposure control was utilized for the study. A dose lowering technique was utilized adhering to the principles of ALARA. COMPARISON: None. FINDINGS: Lung bases: Unremarkable. No mass. No consolidation. Heart: Unremarkable. No significant pericardial effusion. Normal cardiac size. ABDOMEN: Liver: Unremarkable. Gallbladder and bile ducts: Unremarkable. No calcified stones. No ductal dilation. Pancreas: Unremarkable. No ductal dilation. Spleen: Unremarkable. No splenomegaly. Adrenals: Unremarkable. No mass. Kidneys and ureters: Mild bilateral perinephric stranding. Mild stranding along the left renal pelvis and left ureter with mild fullness of the wall. No stone along the trajectory of the left ureter. Cannot exclude infectious process or left pyelonephritis. Stomach and bowel: Increased fecal debris within the colon consistent with constipation. No obstruction. No mucosal thickening. PELVIS: Appendix: Nonvisualized appendix with surgical clips by the cecum suggestive of previous appendectomy. Bladder: Slightly over distended urinary bladder with mild surrounding stranding, cannot exclude cystitis. No stones. Reproductive: Mild prostate enlargement. ABDOMEN and PELVIS: Intraperitoneal space: Unremarkable. No free air. No significant fluid collection. Bones/joints: No acute fracture. No dislocation. Soft tissues: Small bilateral fat-containing bilateral inguinal hernias containing fat. Vasculature: Mild atherosclerotic disease of aorta with no aneurysm. Lymph nodes: Unremarkable. No enlarged lymph nodes. IMPRESSION: 1. Constipation. Status post appendectomy. No bowel obstruction pain 2. Bilateral perinephric stranding with possible cystitis and fullness of the urothelium on the left which may indicate infectious process. Cannot exclude left pyelonephritis. If indicated, these findings may be further assessed with urinalysis. Electronically signed by: Elza Hancock MD 12/27/22 00:08 AM
[2022-12-28] MEDS: levoFLOXacin/D5W 750 MG/150 ML BAG IV SCH (16:47)
--- NOTE | 2022-12-28 16:49 | Electrocardiogram Report ---
Test Reason : Blood Pressure : / mmHG Vent. Rate : 107 BPM Atrial Rate : 107 BPM P-R Int : 174 ms QRS Dur : 088 ms QT Int : 324 ms P-R-T Axes : 051 045 049 degrees QTc Int : 432 ms Sinus tachycardia Otherwise normal ECG No previous ECGs available Confirmed by Xu Dobbins ([id number]) on 12/28/2022 4:49:06 PM Referred By: REFERRED SELF Confirmed By:Xu Dobbins
[2022-12-28] MEDS ORDERED: HYDROCODONE/ACETAMOPHEN 5/325MG TAB PO PRN (19:32)
--- NOTE | 2022-12-28 20:36 | Infectious Disease Consult ---
Date of Service December 28, 2022 Telehealth Information I performed this visit using a real-time telehealth connection between my location and the patients location ([facility]). After connecting through interactive tele-video, patient was identified by name and date of and/or wristband check.Patient (or authorized healthcare bottling equipment sales representative) was informed that this was a telemedicine visit and it was being conducted confidentially over secure lines. My office door was closed and no one else was present in the room with me.Patient (or authorized healthcare bottling equipment sales representative) provided consent to proceed with the visit, expressed an understanding of privacy and security of the telemedicine visit, and gave permission to have a hospital bottling equipment sales representative in the room in order to assist with the visit and to conduct portions of the visit, as needed. I informed the patient (or authorized healthcare bottling equipment sales representative) that I reviewed their record and presented the opportunity for them to ask any questions regarding the visit today. The patient agreed to participate. Assessment & Plan (1) Acute orchitis: (2) Cellulitis of scrotum: Plan 1) Please discontinue all current antibiotics and start on IV Levofloxacin 750 mg daily. There is no concern for STI related infection at this age and with no Hx of sexual encounters for over 2 years. 2) When he starts to feel better in terms of pain and the cellulitis improves, consider changing IV levofloxacin to oral Levofloxacin 750 mg daily. 3) Thank you for consulting infectious disease. We will continue to follow. History of Present Illness History of Present Illness Mr. Rodgers is a 52-year-old man with medical history of type 2 diabetes, COPD, HTN, GERD, anxiety disorder/PTSD/major depressive disorder with suicidal ideation, and antisocial personality disorder who was admitted to [facility] on 12/27 because of left scrotal swelling. He mentioned that he started having pain in his left scrotum around 1 week prior to presentation which was associated with difficulty urinating and burning on micturition. The pain was radiating into his lower abdomen. On presentation, he was tachycardic at 106, hypertensive and 164/93 but afebrile. Initial blood workup showed leukocytosis of around 17 (ANC 11.9) as well as hyponatremia with mildly elevated alkaline phosphatase. His urine showed 10-30 WBCs, 5-10 epithelial cells with no bacteria. Urine culture came back as negative. Ultrasound of the scrotum was concerning for left-sided orchitis associated with cellulitis. The CT abdomen and pelvis showed bilateral perinephric stranding with possible cystitis. Id team was consulted for further recommendations and to help with the management of scrotal cellulitis. Allergies Allergy/AdvReac Type Severity Reaction Status Date / Time bee venom protein (honey bee) Allergy Severe Anaphylaxis Verified 12/26/22 19:50 Penicillins Allergy Intermediate HIVES/VOMIT Verified 12/26/22 19:50 ING Home Medications Medication Instructions Recorded Confirmed Type atorvastatin 20 mg tablet 20 mg PO QAM 12/26/22 12/26/22 History ibuprofen 200 mg tablet 400 mg PO DIRECTED PRN Pain 12/26/22 12/26/22 History insulin aspar prot-insulin aspart 0 unit subcut BID 12/26/22 12/26/22 History 100 unit/mL (70-30) subcutaneous pen (Novolog Mix 70-30FlexPen U-100) lisinopril 5 mg tablet 5 mg PO QAM 12/26/22 12/26/22 History mirtazapine 15 mg tablet 15 mg PO HS 12/26/22 12/26/22 History pantoprazole 40 mg tablet,delayed 40 mg PO QAM 12/26/22 12/26/22 History release pregabalin 75 mg capsule 75 mg PO BID 12/26/22 12/26/22 History Patient History Social History Smoking Status: Former smoker Tobacco Type: Cigarettes Hx Alcohol Use: Yes Hx Substance Use: No Preferred Language: Vietnamese Communication Ability: Effective Energy Specialist Required: No Beliefs That Will Affect Care: None Current Living Situation: Significant Other Feels Safe at Home: Yes Assistive Devices: None Review of Systems Constitutional:fatigue, but no fever or chills HEENT:no sore throat, no nasal discharge Cardiovascular:no chest pain, or palpitations Respiratory:no shortness of breath, no cough Gastrointestinal:no abdominal pain, nausea or vomiting :Lt scrotal pain Musculoskeletal/Skin: no body aches or rash Neurologic: No Headache, no dizziness Physical Exam Couldn't be performed as the consult was performed via telemed. Results & Data Vital Signs (Past 12 Hours) Vital Signs Temp Pulse Resp BP Pulse Ox O2 Del Method 12/28/22 19:28 36.9 C 106 H 18 124/72 90 Room Air 12/28/22 15:53 37.2 C 70 16 156/80 H 97 Room Air 12/28/22 11:46 36.8 C 99 H 16 128/78 97 Room Air Laboratory Results Microbiology: 12/26: Urine culture negative (final) Diagnostic Findings Scrotal US on 12/26: 1. Findings concerning for left-sided orchitis. Mild bilateral hydroceles, left more than right. 2. Scrotal wall thickening concerning for cellulitis, clinical correlation recommended.
[2022-12-28] MEDS: ACETAMINOPHEN 325 MG TAB PO PRN (20:43)
[2022-12-28] MEDS: MIRTAZAPINE TAB 15 MG TAB PO SCH (20:43)
[2022-12-29] MEDS: HYDROmorphone INJ 0.5 MG/0.5 ML SYR IV PRN ×2 (04:15→15:15)
[2022-12-29] MEDS: PANTOprazole 40 MG TAB PO SCH (04:16)
[2022-12-29] MEDS ORDERED: cefTRIAXone SODIUM 2,000 MG in DEXTROSE 5 % MINI-B 50 ML IV SCH (06:00)
[2022-12-29] MEDS ORDERED: MAGNESIUM HYDROXIDE SUSP 30 ML UDC PO ONE (07:58)
[2022-12-29 08:03] LABS: Basophils # (auto) 0.03 K/uL (0.00-0.20); Basophils % (auto) 0.2 %; Eosinophils # (auto) 0.14 K/uL (0.00-0.50); Hematocrit (blood only) 29.8 % (42.0-52.0); Immature Granulocytes # (auto) 0.07 K/uL (0.01-0.20); Immature Granulocytes % (auto) 0.5 %; Lymphocytes # (auto) 3.23 K/uL (1.20-3.40); Lymphocytes % (auto) 23.8 %; Mean Corpuscular Hemoglobin 27.9 pg (25.0-34.0); Mean Corpuscular Hgb Conc 33.6 g/dL (32.0-36.0); Mean Platelet Volume 8.6 fL (9.4-12.4); Monocytes # (auto) 1.15 K/uL (0.11-0.59); Monocytes % (auto) 8.5 %; Neutrophils # (auto) 8.94 K/uL (1.40-6.50); Platelet Count 427 K/uL (130-400); RDW Coefficient of Variation 11.9 % (11.5-14.5); RDW Standard Deviation 36.6 fL (36.4-46.3); Red Blood Count 3.59 M/uL (4.70-6.10); White Blood Count 13.56 K/ul (4.8-10.8)
[2022-12-29 08:41] LABS: BUN Creatinine Ratio 19.5 (10-20); Calcium 8.4 mg/dl (8.6-10.3); Creatinine Clr Calc Pharmacy 76.4 ml/min; Est GFR (African American) 86.1 ml/min; Est GFR (Non-African American) 74.3 ml/min; Potassium 3.9 mmol/L (3.5-5.1)
[2022-12-29] MEDS: INSULIN ASPART PER UNIT CHARGE SC SCH ×4 (09:49→21:03)
[2022-12-29] MEDS: LANTUS PER UNIT CHARGE SQ SCH ×2 (09:50→21:05)
[2022-12-29] MEDS: POLYETHYLENE (MIRALAX) 17 GM PACK PO SCH (09:53)
[2022-12-29] MEDS: ATORVASTATIN 20 MG TAB PO SCH (09:54)
[2022-12-29] MEDS: lisinopril 5 MG TAB PO SCH (09:54)
[2022-12-29] MEDS: PREGABALIN 75 MG CAP PO SCH ×2 (09:54→21:04)
[2022-12-29] MEDS: ACETAMINOPHEN 325 MG TAB PO PRN ×2 (10:43→15:15)
[2022-12-29] MEDS: oxyCODONE HCL IR 5 MG TAB (IMMEDIATE RELEASE) PO PRN ×2 (10:43→21:04)
--- NOTE | 2022-12-29 11:19 | Urology Progress Note ---
Date of Service December 29, 2022 Assessment & Plan (1) Acute orchitis: (2) Left testicular pain: Plan Left epididymoorchitis/scrotal cellulitis - gradually improving with antibiotics. Remains afebrile, labs reviewed - WBC 13.56, Hemoglobin 10.0, Creatinine 1.13. Scrotal ultrasound findings consistent with left-sided orchitis and scrotal wall thickening concerning for cellulitis. CT abdomen pelvis with concern for possible cystitis. Urine culture was negative. No fluctuant areas or crepitus that would require surgical intervention appreciated on exam. Infectious disease consulted. Recommended changing to IV Levofloxacin. Voiding spontaneously. Continue to monitor. Bladder scan as needed Continue supportive care and antibiotic therapy. Recommend bowel regimen. He can try a cold pack to help with pain, scrotal elevation to help with any edema, and scrotal support. Urology will follow. Admission and Anticipated Discharge Date Admission Date: December 27, 2022 Subjective Pt examined at bedside this AM. Awake, resting in bed on arrival. No acute distress. No fevers. Still with scrotal/testicular pain and left groin pain. Voiding spontaneously. Denies hematuria or dysuria. Tolerating diet. No nausea/vomiting. Patient reports last BM was 1 week ago. Review of Systems Constitutional: as per Subjective / HPI Gastrointestinal: as per Subjective / HPI Genitourinary: + as per Subjective / HPI Physical Exam Constitutional: well developed and well nourished; no acute distress Respiratory: normal respiratory effort; no respiratory distress and no labored breathing Gastrointestinal (Abdomen): Inspection/Auscultation: abdomen normal to inspection; abdomen not distended Neurologic: moves all extremities and awake Psychiatric: Orientation: alert and oriented x 3 Genitourinary: Left hemiscrotum is enlarged and erythematous. This area is tender to palpation. No fluctuance or crepitus appreciated. There is some penile edema. Right testis minimally tender. No open areas or drainage. Results & Data Vital Signs (Past 12 Hours) Vital Signs Temp Pulse Pulse Resp BP Pulse Ox O2 Del Method 12/29/22 07:44 37.0 C 106 H 16 157/92 H 95 Room Air 12/29/22 07:29 106 H 12/28/22 23:13 36.3 C L 105 H 18 119/72 97 Room Air PG Care Time/CCT Total # of Minutes Spent Total Time Spent with Patient: Total time spent is greater than 50% in coordination of care (as documented) at patient's floor/unit and/or counseling patient: Coding Level of Care Code 27784 SUB INP/OBS CARE 2/35MIN Diagnoses Acute orchitis N45.2 Left testicular pain N50.812
--- NOTE | 2022-12-29 12:47 | Hospitalist Progress Note ---
Date of Service December 29, 2022 Assessment & Plan (1) Cellulitis of scrotum: Plan: 52-year-old male with past med history significant for type 2 diabetes diabetic retinopathy, diabetic neuropathy, COPD, hypertension, GERD, cannabis use with anxiety disorder, PTSD, history of depression with suicidal ideation, antisocial personality disorder presents with left scrotal swelling going on since last Wednesday. Cellulitis of the scrotum Left-sided epididymoorchitis Patient presented to the hospital with left scrotal swelling for several days No history of recent UTI. Not sexually active for last 2 years Scrotal ultrasound shows findings consistent with left-sided orchitis and scrotal wall thickening concerning for cellulitis CT abdomen pelvis personally reviewed; concern for possible cystitis. Urine culture no growth EKG reviewed personally; sinus tachycardia with heart rate of 107. QTc of 432 Discussed with infectious disease; patient switched over to Levaquin. Continue Levaquin IV once a day; plan to switch over to oral Levaquin after patient is clinically better. Type II diabetes home NovoLog 70/30 mix on hold On Lantus 15 units twice daily Sliding scale Glycemic pharmacy consult Hypertension Continue lisinopril Hyperlipidemia On statin GERD On Protonix Diabetic neuropathy On pregabalin Depression Anxiety PTSD On Remeron DVT prophylaxis Lovenox Disposition -patient continues to be hospitalized for need of IV antibiotics for left-sided Left-sided epididymoorchitis and scrotal cellulitis. Full code Please note the above document was generated using voice recognition software. It may contain grammatical, syntax or spelling errors. Any formal questions or concerns about the content, text or information contained within the body of this dictation should be directly addressed to the provider for clarification Admission and Anticipated Discharge Date Admission Date: December 27, 2022 Subjective Patient seen and examined at bedside. He reports that he is feeling similar to yesterday. No other overnight events Review of Systems Review of Systems: All systems reviewed & are unremarkable except as noted in Subjective Physical Exam Physical Exam: General- Not in distress Head- atraumatic Eyes- PERRL. ENT- oropharynx clear Neck- supple, no JVD. Lungs- clear to auscultation no wheezing or crackles. Heart- regular rhythm; no murmur, no gallop. Abdomen- normal bowel sounds, soft, diffuse discomfort, no distension. Extremities- no pretibial edema, no erythema seen. Neuro- alert, oriented x 3; PERRL, no facial palsy; no dysarthria; moves extrem ities. : Left scrotum swollen and hard and tender to palpation; slightly improved compared to yesterday. Results & Data Results & Data Vital Signs (Past 12 Hours) Vital Signs Temp Pulse Pulse Resp BP Pulse Ox O2 Del Method 12/29/22 11:38 37.1 C 101 H 16 124/77 95 Room Air 12/29/22 07:44 37.0 C 106 H 16 157/92 H 95 Room Air 12/29/22 07:29 106 H Laboratory Results Laboratory Results WBC 13.56 K/ul (4.8-10.8) H 12/29/22 07:21 RBC 3.59 M/uL (4.70-6.10) L 12/29/22 07:21 Hgb 10.0 g/dl (14.0-18.0) L 12/29/22 07:21 Hct 29.8 % (42.0-52.0) L 12/29/22 07:21 MCV 83.0 fL (80.0-100.0) 12/29/22 07:21 MCH 27.9 pg (25.0-34.0) 12/29/22 07:21 MCHC 33.6 g/dL (32.0-36.0) 12/29/22 07:21 RDW Std Deviation 36.6 fL (36.4-46.3) 12/29/22 07:21 RDW Coeff of Yoni 11.9 % (11.5-14.5) 12/29/22 07:21 Plt Count 427 K/uL (130-400) H 12/29/22 07:21 MPV 8.6 fL (9.4-12.4) L 12/29/22 07:21 Immature Gran % (Auto) 0.5 % 12/29/22 07:21 Neut % (Auto) 66.0 % 12/29/22 07:21 Lymph % (Auto) 23.8 % 12/29/22 07:21 Hartley % (Auto) 8.5 % 12/29/22 07:21 Eos % (Auto) 1.0 % 12/29/22 07:21 Baso % (Auto) 0.2 % 12/29/22 07:21 Neut # (Auto) 8.94 K/uL (1.40-6.50) H 12/29/22 07:21 Lymph # (Auto) 3.23 K/uL (1.20-3.40) 12/29/22 07:21 Hartley # (Auto) 1.15 K/uL (0.11-0.59) H 12/29/22 07:21 Eos # (Auto) 0.14 K/uL (0.00-0.50) 12/29/22 07:21 Baso # (Auto) 0.03 K/uL (0.00-0.20) 12/29/22 07:21 Immature Gran # (Auto) 0.07 K/uL (0.01-0.20) 12/29/22 07:21 Sodium 135 mmol/L (136-145) L 12/29/22 07:21 Potassium 3.9 mmol/L (3.5-5.1) 12/29/22 07:21 Chloride 101 mmol/L (98-107) 12/29/22 07:21 Carbon Dioxide 30 mmol/L (21-32) 12/29/22 07:21 Anion Gap 4 (3-11) 12/29/22 07:21 BUN 22 mg/dl (6-23) 12/29/22 07:21 Creatinine 1.13 mg/dl (0.6-1.4) 12/29/22 07:21 Est Cr Clr Drug Dosing 76.4 ml/min 12/29/22 07:21 Est GFR ( Amer) 86.1 ml/min 12/29/22 07:21 Est GFR (Non-Af Amer) 74.3 ml/min 12/29/22 07:21 BUN/Creatinine Ratio 19.5 (10-20) 12/29/22 07:21 Glucose 80 mg/dl (70-99(Fasting)) 12/29/22 07:21 POC Glucose 116 mg/dl (70-99) H 12/29/22 12:03 Estimat Average Glucose 364 mg/dl 12/27/22 07:54 Hemoglobin A1c 14.3 % (4.5-5.6) H 12/27/22 07:54 Lactate 0.7 mmol/L (0.4-2.0) 12/26/22 21:08 Calcium 8.4 mg/dl (8.6-10.3) L 12/29/22 07:21 Magnesium 1.7 mg/dl (1.7-2.4) 12/27/22 07:54 Total Bilirubin 0.3 mg/dl (0.2-1.0) 12/26/22 19:48 AST 11 U/L (13-39) L 12/26/22 21:08 ALT 12 U/L (7-52) 12/26/22 19:48 Alkaline Phosphatase 149 U/L (34-104) H 12/26/22 19:48 Troponin I High Sens 12.1 pg/ml (0-20) 12/27/22 07:54 Total Protein 7.7 gm/dl (6.0-8.3) 12/26/22 19:48 Albumin 3.0 gm/dl (3.4-5.0) L 12/26/22 19:48 Globulin 4.7 gm/dl (2.5-4.0) H 12/26/22 19:48 Albumin/Globulin Ratio 0.6 (0.9-2) L 12/26/22 19:48 Urine Color Yellow 12/26/22 Unknown Urine Appearance Clear (Clear) 12/26/22 Unknown Urine pH 7.0 (4.5-7.5) 12/26/22 Unknown Ur Specific [place] 1.017 (1.000-1.030) 12/26/22 Unknown Urine Protein 3+ (Negative) H 12/26/22 Unknown Urine Glucose (UA) 3+ (Negative) H 12/26/22 Unknown Urine Ketones Negative (Negative) 12/26/22 Unknown Urine Blood 2+ (Negative) H 12/26/22 Unknown Urine Nitrite Negative (Negative) 12/26/22 Unknown Urine Bilirubin Negative (Negative) 12/26/22 Unknown Urine Urobilinogen Negative (Negative) 12/26/22 Unknown Ur Leukocyte Esterase Negative (Negative) 12/26/22 Unknown Urine WBC (Auto) 10-30 /hpf (0-5) H 12/26/22 Unknown Urine RBC (Auto) 10-30 /hpf (0-4) H 12/26/22 Unknown U Hyaline Cast (Auto) 1-5 /lpf (0-5) 12/26/22 Unknown U Epithel Cells (Auto) 5-10 /lpf (0-5) H 12/26/22 Unknown Urine Bacteria (Auto) Negative (Negative) 12/26/22 Unknown Random Vancomycin 15.3 mcg/ml (10-20) 12/28/22 08:23 Impressions Scrotum Ultrasound 12/26/22 19:27 Exam(s): US SCROTAL EXAM: US Scrotum CLINICAL HISTORY: Reason for exam: L testicle pain and swelling. TECHNIQUE: Real-time ultrasound of the scrotum with color Doppler and image documentation. COMPARISON: None. FINDINGS: Right testicle: There is increased flow within the right testis suggestive of orchitis. The right testis measures 3.5 x 2.5 x 2.6 cm. No torsion. Left testicle: The left testis measures 2.8 x 2.5 x 2.8 cm. No torsion. Epididymides: Within the right epididymis there is a round anechoic structure consistent with epididymal cyst measuring 0.4 x 0.3 x 0.5 cm. Scrotum: There is scrotal wall thickening with increased vascularity concerning for cellulitis, left more than right. There is mild left- sided hydrocele. There is minimal right-sided hydrocele. IMPRESSION: 1. Findings concerning for left-sided orchitis. Mild bilateral hydroceles, left more than right. 2. Scrotal wall thickening concerning for cellulitis, clinical correlation recommended. Electronically signed by: Elza Hancock MD 12/26/22 21:18 PM Abdomen/Pelvis CT 12/26/22 20:55 Exam(s): CT ABDOMEN + PELVIS Without Contrast EXAM: CT Abdomen and Pelvis Without Intravenous Contrast CLINICAL HISTORY: Reason for exam: LLQ pain and left testicle pain. TECHNIQUE: Axial computed tomography images of the abdomen and pelvis without intravenous contrast. CTDI is 21.01 mGy and DLP is 1042.65 mGy-cm. Automated exposure control was utilized for the study. A dose lowering technique was utilized adhering to the principles of ALARA. COMPARISON: None. FINDINGS: Lung bases: Unremarkable. No mass. No consolidation. Heart: Unremarkable. No significant pericardial effusion. Normal cardiac size. ABDOMEN: Liver: Unremarkable. Gallbladder and bile ducts: Unremarkable. No calcified stones. No ductal dilation. Pancreas: Unremarkable. No ductal dilation. Spleen: Unremarkable. No splenomegaly. Adrenals: Unremarkable. No mass. Kidneys and ureters: Mild bilateral perinephric stranding. Mild stranding along the left renal pelvis and left ureter with mild fullness of the wall. No stone along the trajectory of the left ureter. Cannot exclude infectious process or left pyelonephritis. Stomach and bowel: Increased fecal debris within the colon consistent with constipation. No obstruction. No mucosal thickening. PELVIS: Appendix: Nonvisualized appendix with surgical clips by the cecum suggestive of previous appendectomy. Bladder: Slightly over distended urinary bladder with mild surrounding stranding, cannot exclude cystitis. No stones. Reproductive: Mild prostate enlargement. ABDOMEN and PELVIS: Intraperitoneal space: Unremarkable. No free air. No significant fluid collection. Bones/joints: No acute fracture. No dislocation. Soft tissues: Small bilateral fat-containing bilateral inguinal hernias containing fat. Vasculature: Mild atherosclerotic disease of aorta with no aneurysm. Lymph nodes: Unremarkable. No enlarged lymph nodes. IMPRESSION: 1. Constipation. Status post appendectomy. No bowel obstruction pain 2. Bilateral perinephric stranding with possible cystitis and fullness of the urothelium on the left which may indicate infectious process. Cannot exclude left pyelonephritis. If indicated, these findings may be further assessed with urinalysis. Electronically signed by: Elza Hancock MD 12/27/22 00:08 AM
--- NOTE | 2022-12-29 13:10 | Pharmacy Report ---
Pharmacy Glycemic Short Note 2 - Date of Service December 29, 2022 - Glycemic Short BSG Results (Last 24 hours): 12/28/22 12/28/22 12/29/22 17:05 19:58 07:21 Glucose 80 POC Glucose 127 H 157 H 12/29/22 12/29/22 07:59 12:03 Glucose POC Glucose 96 116 H OUTPATIENT ANTIDIABETIC REGIMEN: * Novolog mix 70/30 - 30 units bidm - per external fill hx ASSESSMENT: 12/29: * Fasting trending downward 96 mg/dL this morning- basal will be reduced 17-34% overall per scale * Prandial BSGs have been at goal will continue current novolog parameters for now 12/28 * 52 year old admitted with scrotal cellulitis, started on broad spectrum antibiotics. Pharmacy consulted for glycemic management. Discussed with patient home insulin dosing and he reports taking insulin per scale provided by his provider, however he does not remember scale. He was able to tell me if BSG >300 he takes 35 units and BSG>350 he takes 40 units. * Started patient with stress of 2 dosing for insulin, received total of 33 units of insulin yesterday. * Fasting BSG 150, reasonable to continue same basal for now. Anticipate insulin needs to increase once PO intake improves. A1c ~14.3% on admission. PLAN FOR INPATIENT GLYCEMIC CONTROL: * Hold outpatient oral diabetes medications * Basal insulin * Lantus 10/15 units SQ BID * Bolus insulin * NovoLog per scale ACHS or Q6hrs while NPO * Goal Range: Low 110 mg/dL - High 140 mg/dL * Correction Factor: 30 mg/dL/unit * Nutritional / Prandial insulin per carb ratio of 1 unit per 10 grams CHO consumed
[2022-12-29] MEDS: ENOXAPARIN INJ 40 MG/0.4 ML SYR SQ SCH (13:17)
[2022-12-29] MEDS: levoFLOXacin/D5W 750 MG/150 ML BAG IV SCH (15:34)
[2022-12-29] MEDS: MIRTAZAPINE TAB 15 MG TAB PO SCH (21:05)
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
--- OUTSIDE RECORDS SUMMARY | 2022-12-29 21:26 | External Medical Summary | Summary of Care ---
Author Name Unknown Organization [facility] Address [address] [place] [address] Phone [phone] Care Team Providers Care Supervisor Wrapping Room Name Role Phone Yaima Genao MD Primary Care Provider [phone] Reason for Visit * Reason Onset Date Comments case management 12/22/2022 Encounter Details Date Type Department Care Team (Late st Contact Info) Description 12/22/2022 Electronic Design Engineer Telephone [facility] [address] [place] [address] Lore Martínez RN [address] [place] [address] case management Allergies Active Allergy Reactions Criticality Noted Date Comments Bee Venom Anaphylaxis High 04/16/2014 Penicillins Hives Medium 07/21/2013 documented as of this encounter (statuses as of 12/22/2022) Medications Medication Sig Dispensed Refills Start Date [...] as of this encounter (statuses as of 12/22/2022) Active Problems Problem Noted Date Diagnosed Date [...] as of this encounter (statuses as of 12/22/2022) Resolved Problems Problem Noted Date Diagnosed Date Resolved Date Complicated UTI (urinary tract infection) 12/15/2022 12/18/2022 Pseudohyponatremia 12/15/2022 3 Scalp abscess 12/15/2022 12/18/2022 Food insecurity 09/23/2020 10/01/2022 Overview: Per [facility] Protocol DM type 2, not at goal 04/11/201911/13 Overview: 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 12/29/2018 04/11/2019 Cannabis abuse 06/14/2018 06/21/2018 Type 2 diabetes mellitus wit h hemoglobin A1c goal of less than 7.0% 06/07/2018 11/16/2019 Type 2 diabetes mellitus wit h diabetic polyneuropathy, with long-term current use of insulin 12/25/2015 03/12/2016 Bipolar 1 disorder 12/25/2015 3 Depression with anxiety 12/25/201505/18 COPD, severity to be determined 12/25/2015 04/27/2019 Overview: Per COPD GOLD Classification documented as of this encounter (statuses as of 12/22/2022) Immunizations Name Administration Dates Next Due TDAP [...] encounter Miscellaneous Notes * Telephone Encounter - Lore Martínez RN - 12/22/2022 8:13 AM EST Follow-up Post Discharge Attempted Phone Call Second Attempt Call Outcome Unable to Leave Message Plan To attempt another outreach documented in this encounter Plan of Treatment Upcoming Encounters Date Type Department Care Team (Late st Contact Info) Description 02/01/2023 11:40 AM EST Office [address] [phone] Mercy Wolff PA-C [address] [place] [address] [place] [address] 04/22/2023 3:00 PM EST Office Visit Endocrinology [address] [place] [phone] Mercy Wolff PA-C [address] [place] [address] [place] [address] Health Maintenance Due Date Last Done Comments [...] the patient have Health Care Power of Sign Maintenance? No Code Status History Code Status Date Activated Date Inactivated Comments Full Code 06/07/2018 12:21 AM 06/14/2018 5:15 PM This order reflects the patients wishes and were consensually agreed upon. Question Answer Comments Discussion of Advance Directives occurred with: Patient Does the patient have a Living Will? No Does the patient have Health Care Power of Sign Maintenance? No Full Code 04/16/2014 9:08 PM 04/25/2014 5:20 PM This o rder reflects the patients wishes and were consensually agreed upon. Care Teams Supervisor Wrapping Room Relationship Specialty Start Date End Date Yaima Genao MD [address] [place] [address] PCP - General Family Medicine 11/16/22 documented as of this encounter
--- OUTSIDE RECORDS SUMMARY | 2022-12-29 21:26 | External Medical Summary | Summary of Care ---
Author Name Unknown Organization [facility] Address [address] [place] [address] Phone [phone] Care Team Providers Care Cda Teacher Name Role Phone Yaima Genao MD Primary Care Provider [phone] Reason for Visit * Reason Onset Date Comments case management 12/23/2022 Encounter Details Date Type Department Care Team (Late st Contact Info) Description 12/23/2022 Regional Vice President Surgical Sales Telephone [facility] [address] [place] [address] Lore Martínez RN [address] [place] [address] case management Allergies Active Allergy Reactions Criticality Noted Date Comments Bee Venom Anaphylaxis High 04/16/2014 Penicillins Hives Medium 07/21/2013 documented as of this encounter (statuses as of 12/24/2022) Medications Medication Sig Dispensed Refills Start Date [...] as of this encounter (statuses as of 12/24/2022) Active Problems Problem Noted Date Diagnosed Date [...] as of this encounter (statuses as of 12/24/2022) Resolved Problems Problem Noted Date Diagnosed Date Resolved Date Complicated UTI (urinary tract infection) 12/15/2022 12/18/2022 Pseudohyponatremia 12/15/2022 3 Scalp abscess 12/15/2022 12/18/2022 Food insecurity 09/23/2020 10/01/2022 Overview: Per [facility] Protocol DM type 2, not at goal 04/11/201911/13 Overview: 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 Await return call. Has apt on 12/28/22 - can meet with patient in clinic. * Telephone Encounter - Lore Martínez RN - 12/23/2022 3:47 PM EST Line still busy - will try to reach patient tomorrow. * Telephone Encounter - Lore Martínez RN - 12/23/2022 3:25 PM EST Line busy * Telephone Encounter - Lore Martínez RN - 12/23/2022 3:03 PM EST Line busy * Telephone Encounter - Marylin Valero OSA - 12/23/2022 2:23 PM EST Patient returning call, stated he tried to call [phone] and was unable to get through. Patientstated that he did not want to leave a voicemail, is requesting to be called back. Stated that he would be free all day. * Telephone Encounter - Lore Martínez RN - 12/23/2022 9:56 AM EST Follow-up Post Discharge Attempted Phone Call Third Attempt Call Outcome Left Voicemail/Message Plan To send letter documented in this encounter Plan of Treatment Upcoming Encounters Date Type Department Care Team (Late st Contact Info) Description 12/28/2022 8:40 AM EST [facility] [address] [place] [address] Ora Rizzo CRNP [address] [place] [address] 02/01/2023 11:40 AM EST Office Visit Endocrinology, [address] [phone] Mercy Wolff PA-C [address] [place] [address] [place] [address] 04/22/2023 3:00 PM EST Office Visit Endocrinology, [address] [place] [phone] Mercy Wolff PA-C [address] [facility] [place] [address] Health Maintenance Due Date Last Done Comments [...] the patient have Health Care Power of Horticultural Services Supervisor? No Code Status History Code Status Date Activated Date Inactivated Comments Full Code 06/07/2018 12:21 AM 06/14/2018 5:15 PM This order reflects the patients wishes and were consensually agreed upon. Question Answer Comments Discussion of Advance Directives occurred with: Patient Does the patient have a Living Will? No Does the patient have Health Care Power of Horticultural Services Supervisor? No Full Code 04/16/2014 9:08 PM 04/25/2014 5:20 PM This o rder reflects the patients wishes and were consensually agreed upon. Care Teams Cda Teacher Relationship Specialty Start Date End Date Yaima Genao MD [address] [place] [address] PCP - General Family Medicine 11/16/22 documented as of this encounter
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
--- OUTSIDE RECORDS SUMMARY | 2022-12-29 21:26 | External Medical Summary | Summary of Care ---
Author Name Unknown Organization [facility] Address [address] [facility] [place] [address] Care Team Providers Care Polymerization Oven Operator Name Role Phone Yaima Genao MD Primary Care Provider [phone] Reason for Visit * Reason Comments Education Dexcom g7 Encounter Details Date Type Department Care Team (Late st Contact Info) Description 12/21/2022 4:30 PM EST Nurse Only Endocrinology, [place] [facility] [address] [place] [phone] Janeen Johns, JAMIE [address] [place] [phone] Education (Dexcom g7) Allergies Active Allergy Reactions Criticality Noted Date [...] morning. 30 Tablet 0 12/18/2022 01/17/2023 Active Cephalexin 500 MG Oral Capsule Take 1 Capsule by mouth in the morning and 1 Capsule at noon and 1 Capsule in the evening and 1 Capsule before bedtime. Do all this for 3 days. 12 Capsule 0 12/18/2022 12/21/2022 documented as of this encounter (statuses as [...] at goal 04/11/201911/13 Overview: Duplicated on pl halfway (current) use of insulin 12/29/2018 04/11/2019 Cannabis [...] No 12/15/2022 documented as of this encounter Progress Notes * Janeen Johns RN - 12/22/2022 8:01 AM EST Educated that the Continuous Glucose Monitor measures glucose level in the intestinal fluid (fluid between your tissue cells just under your skin). A blood glucose meter measures glucose in the capillaries. When you eat you will see a rise in your capillary glucose level first. There is a lag time between your capillary reading (meter) to your intestinal reading (sensor). With that said, you are likely never going to see the same reading on both devices because of the lag time. Keep in mind if you are getting lows (below 70) on your sensor, you need to double check your glucose level on your meter. Because of the lag time, you may not be as low as it is reading or you may be lower. Reviewed reasons for glucose variability. Dexcom CGM Training Instruction: Educated on the Dexcom Continuous Glucose Monitoring System. Reviewed the components of the system. Educated on how to set up the business unit manager device. Educated on how to insert the sensor. Participant was able to provide a return demonstration on howto insert the Dexcom sensor. Set up low alert of 70 on the business unit manager and high alerts were turned off. Reviewed how to choose alert sounds. Advised to contact Dexcom for any technical issues. Instructed on how to use Dexcom melissa on smart phone-share code was provided. Time in: 161 Time out: 1719 Janeen Johns RN, [facility] documented in this encounter Plan of Treatment Upcoming Encounters Date Type Department Care Team (Late st Contact Info) Description 02/01/2023 11:40 AM EST Office Visit Endocrinology, [place] [address] [place] [address] Mercy Wolff PA-C [address] [place] [address] [place] [address] 04/22/2023 3:00 PM EST Office Visit [place] [address] [place] [phone] Mercy Wolff PA-C [address] [place] [address] [place] [address] Health Maintenance Due Date Last Done Comments [...] 08/15/2019, Additional history exists GFR 12/19/2023 12/18/2022, 110 03/2022, 12/16/2022, Additional history exists O2 ASSESSMENT [...] Type 2 diabetes mellitus with diabetic neuropathy, unspecified (HCC)- Primary documented in this encounter Advance [...] the patient have Health Care Power of Wrapper Off? No Code Status History Code Status Date Activated Date Inactivated Comments Full Code 06/07/2018 12:21 AM 06/14/2018 5:15 PM This order reflects the patients wishes and were consensually agreed upon. Question Answer Comments Discussion of Advance Directives occurred with: Patient Does the patient have a Living Will? No Does the patient have Health Care Power of Wrapper Off? No Full Code 04/16/2014 9:08 PM 04/25/2014 5:20 PM This o rder reflects the patients wishes and were consensually agreed upon. Care Teams Polymerization Oven Operator Relationship Specialty Start Date End Date Yaima Genao MD [address] [place] [address] PCP - General Family Medicine 11/16/22 documented as of this encounter
--- OUTSIDE RECORDS SUMMARY | 2022-12-29 21:27 | External Medical Summary ---
Author Name Unknown Address Unknown Organization [place] [address] Laboratory Report Ordering Provider Test Date Status TARIQ GUZMAN 12/17/2022 06:13:00 Final Observation Date Value Abnormality Reference (Units ) Status [facility] BETA HYDROXYBUTYRATE 12/17/2022 06:13:00 0.40 Above high normal 0.02-0.27 (mmol/L) Final [place] [address]
--- OUTSIDE RECORDS SUMMARY | 2022-12-29 21:27 | External Medical Summary ---
Author Name Unknown Address Unknown Organization [place] [address] Laboratory Report Ordering Provider Test Date Status DEFAULT,POCT 12/17/2022 11:37:26 Final Observation Date Value Abnormality Reference (Units ) Status [facility] GLUCOSE POC STAT STRIP 12/17/2022 11:37:26 291 Above high normal 70-110 (mg/dL) [place] [address]
--- OUTSIDE RECORDS SUMMARY | 2022-12-29 21:27 | External Medical Summary ---
Author Name Unknown Address Unknown Organization [place] [address] Laboratory Report Ordering Provider Test Date Status DEFAULT,POCT 12/17/2022 07:08:39 Final Observation Date Value Abnormality Reference (Units ) Status [facility] GLUCOSE POC STAT STRIP 12/17/2022 07:08:39 335 Above high normal 70-110 (mg/dL) [place] [address]
--- OUTSIDE RECORDS SUMMARY | 2022-12-29 21:27 | External Medical Summary ---
Author Name Unknown Address Unknown Organization [id number]:[facility], [place] [address] Laboratory Report Ordering Provider Test Date Status BISI LANG 12/15/2022 14:08:00 Final Observation Date Value Abnormality Reference (Units ) Status [facility] SODIUM 12/15/2022 14:08:00 134 Below low normal 135-146 (mmol/L) Final [facility] POTASSIUM 12/15/2022 14:08:00 3.9 3.5-5.1 (mmol/L) Final [facility] CHLORIDE 12/15/2022 14:08:00 96 Below low normal 98-107 (mmol/L) Final [facility] CO2 12/15/2022 14:08:00 27 22-32 (mmol/L) Final [facility] ANION GAP 12/15/2022 14:08:00 15 10-20 (mmol/L) Final [facility] BUN 12/15/2022 14:08:00 24 Above high normal 6-20 (mg/dL) Final [facility] CREATININE 12/15/2022 14:08:00 0.9 0.7-1.2 (mg/dL) Final [facility] ESTIMATED GLOMERULAR FILTRATION RATE 12/15/2022 14:08:00 103 Final [facility] BUN/CREATININE RATIO 12/15/2022 14:08:00 26.7 Above high normal 12.0-20.0 Final [facility] GLUCOSE 12/15/2022 14:08:00 259 Above high normal 70-120 (mg/dL) Final [facility] CALCIUM 12/15/2022 14:08:00 8.2 Below low normal 8.4-10.2 (mg/dL) Final Performing Location [facility], [place] [address]
--- OUTSIDE RECORDS SUMMARY | 2022-12-29 21:27 | External Medical Summary | Summary of Care ---
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 Urogram Consider Urology consult Uncontrolled IDDM2 with hyperglycemia, polyneuropathy and pseudohyponatremia Na 124 (corrected 132), BG 453 with 10 ketones, VBG alkalotic, not in DKA Improving with sugar control Last A1c 15 Lyrica 75 mg PO QD for now ordered on admission Added carb coverage with meals Hypoglycemia protocol IVF 150 ml/hr Monitor intake and output Monitor electrolytes and replace if indicated HTN Uncontrolled at times, thought was in 150s upon arrival Ordered lisinopril 2.5 mg PO QD and can titrate from there as needed Nitropaste 0.5 inch was ordered X 2 Unintentional weight loss Review of flow sheets indicates some lability to weight from 180 to 197 form 2018 to 2020 but relative stable in [facility] This could be followed up as o/p and would benefit from better glycemic control and age appropriateCA screening as o/p Bipolar Disorder / antisocial personality disorder Has labile moods, mentions violence multiple times during exam No current SI/HI Would benefit from multi disciplinary approach as able PHARMACOLOGIC VTE PROPHYLAXIS: This patient does not have an active medication from one of the medication groupers. CODE STATUS: Full Code EXPECTED DISCHARGE DATE: No information available A total of 35 minutes was spent providing care for this patient on the unit/floor. More than half of the time was spent counseling and coordinating care for the patient. [place] elements of the counseling and coordination of care included Lab reviews, chart reviews, imaging review, and discussion of the plan of care. * Communication - Lashanda Combs RN - 12/15/2022 7:27 AM EDT Hand-Off - Nurse Communication Note Sending to: ER hold #5 Safety Concerns: None Allergies: Bee venom and Penicillins Code Status: Full Code Discussion of adv directives occurred with - adult: Patient Does patient have living will: No Does patient have health care power of mergers and acquisitions attorney: No Isolation: None n/a Isolation flowsheet: Special Needs: Special Needs comments: Attention to: Amanda AYALA Report from: Lashanda Combs RN Patient arriving via: ambulated Reason for SBAR handoff: Admission Situation/Background Admission date: 12/14/2022 Patient Service: Med A [[id number]] Attending Provider: Sky Ivy DO Admitting diagnosis: Complicated UTI (urinary tract infection) Chief Complaint: Vomiting Problem list: Principal Problem: Complicated UTI (urinary tract infection) Active Problems: Type 2 diabetes mellitus with diabetic neuropathy, unspecified (HCC) Hyperlipidemia Gastroesophageal reflux disease without esophagitis HTN, goal below 140/80 Type 2 diabetes mellitus 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, unspecified eye (HCC) Difficulty controlling anger Antisocial personality disorder (HCC) Pseudohyponatremia Unintentional weight loss Resolved Problems: * No resolved hospital problems. * Level of Care: Med Surg [3] Assessment Vital Signs: BP: (!) 174/149 (12/15/22599) Temp: 36.2 C (97.2 F) (12/15/22 0001) Pulse: 109 (12/15/22599) Resp: 20 (12/15/22640) SpO2: 97 % (12/15/22599) Glucose (Bedside): 393 (12/15/22599) Weight: 81.7 kg (180 lb 1.9 oz) (12/15/22 0037) Height: 167.6 cm (5' 6") (12/15/22 0001) Fall Scale: Fall Score: 20 (12/15/22 0000) Neurological: Montgomery Coma Scale Eyes Open: Spontaneous (12/15/22299) Best Verbal Response: Verbally appropriate for age (12/15/22 030) Best Motor Response: Obeys commands appropriate for age (12/15/22 0300) Coma Score: 15 (12/15/22299) Additional Neurological Information: n/a Respiratory: Respiratory WNL: WNL- within normal limits (12/15/22299) Depth/Rhythm: Regular (12/15/22299) Dyspnea Occurance: None (12/15/22299) Effort: Unlabored (12/15/22299) Oxygen therapy/ Mechanical vent Supplemental O2 Delivery: Room Air, None (12/15/2200) Additional Respiratory Information: n/a Cardiac: Rhythm: ST (12/15/22299) Additional Cardiac Information: Sinus tachy; EKG completed at 0641 am, Dr. Ivy notified via [facility] GI/: External Male Catheter Output (mL): 500 mL (12/15/22234) Additional GI/ Information: n/a Integumentary: Skin Description: Dry (12/15/22299) Skin Color: Flesh Tone (12/15/22299) Additional Integumentary Information: n/a Restraints: No orders of the defined types were placed in this encounter. Lines: Peripheral Line Left Antecubital 18 Gauge (Active) Status Capped/Locked 12/15/22299 Tubing Changed No 12/15/22212 Phlebitis Scale 0 12/15/22212 Infiltration Scale 0 12/15/22212 Site Description (Other) Without redness, swelling or drainage 12/15/22299 Site Intervention Flushed 12/15/22212 Dressing Assessment Dressing clean, dry, and intact 12/15/22299 Dressing Intervention None required 12/15/22212 Number of days: 1 Labs: Labs This Encounter BASIC METABOLIC PANEL - Abnormal; Notable for the following components: Result Value Ref Range Sodium 124 135 - 146 mmol/L Chloride 87 98 - 107 mmol/L BUN - ECH 33 6 - 20 mg/dL BUN/Creatinine Ratio 36.7 12.0 - 20.0 Glucose 453 70 - 120 mg/dL All other components within normal limits LIPASE - Abnormal; Notable for the following components: Lipase 86 16 - 63 U/L All other components within normal limits HEPATIC FUNCTION PANEL - Abnormal; Notable for the following components: Albumin 3.0 3.8 - 5.0 g/dL Globulin 4.1 1.8 - 3.8 g/dL Albumin/Globulin Ratio 0.7 1.0 - 2.4 AST/SGOT 8 10 - 50 U/L ALT/SGPT 9 10 - 50 U/L All other components within normal limits BETA HYDROXYBUTYRATE - (ECH ONLY) - Abnormal; Notable for the following components: Beta Hydroxybutyrate 1.50 0.02 - 0.27 mmol/L All other components within normal limits CBC - Abnormal; Notable for the following components: White Blood Cell Count 16.0 4.0 - 10.5 K/uL Red Blood Cell Count 4.28 4.70 - 6.00 Hemoglobin 11.8 13.5 - 18 g/dL Hematocrit 35.2 42 - 52 % Platelet Count 472 150 - 450 K/uL All other components within normal limits URINALYSIS, REFLEX TO CULTURE - Abnormal; Notable for the following components: Glucose, Urine >1000 Negative, Trace mg/dL Ketones, Urine 10 Negative, Trace mg/dL Blood, Urine Small Negative Protein, Urinalysis 100 Negative mg/dL Esterase, Urine Small Negative Bacteria, Urine Moderate None /HPF Erythrocytes, Urine 4 0 - 2 /HPF Leukocytes, Urine 57 0 - 5 /HPF All other components within normal limits DIFFERENTIAL, TECHNOLOGIST REVIEW - Abnormal; Notable for the following components: WBC 16.00 4.00 - 10.50 k/uL Lymphocytes % 23.0 33.0 - 37.0 % Neutrophils Absolute 9.92 1.50 - 6.60 K/uL Lymphocytes Absolute 3.68 1.50 - 3.50 K/uL Monocytes Absolute 1.28 0.00 - 1.00 K/uL Neutrophils, Vacuolated Present None Seen All other components within normal limits Narrative: Large Platelets Present BLOOD GAS, VENOUS - Abnormal; Notable for the following components: PH Venous 7.579 7.260 - 7.430 pCO2 Venous 27.4 41.0 - 51.0 mmHg pO2 Venous 72.5 20.0 - 40.0 mmHg O2Hb Venous 92.0 40.0 - 70.0 % COHb Venous 4.2 0.0 - 1.5 % BE(B) Venous 4.2 -2.0 - 2.0 mmol/L All other components within normal limits CBC - Abnormal; Notable for the following components: White Blood Cell Count 14.7 4.0 - 10.5 K/uL Red Blood Cell Count 4.38 4.70 - 6.00 Hemoglobin 12.2 13.5 - 18 g/dL Hematocrit 36.1 42 - 52 % Platelet Count 473 150 - 450 K/uL All other components within normal limits DRUG SCREEN 10 PANEL UR AUTOMATED - (ECH ONLY) - Abnormal; Notable for the following components: THC Screen, Urine Positive Negative All other components within normal limits GLUCOSE METER, POINT OF CARE - Abnormal; Notable for the following components: Glucose POC STAT Strip 393 70 - 110 mg/dL All other components within normal limits MAGNESIUM - Normal DIFFERENTIAL, AUTOMATED - Normal CBC WITH WBC DIFFERENTIAL Narrative: The following orders were created for panel order CBC WITH WBC DIFFERENTIAL. Procedure Abnormality Status --------- ------ CBC[[id number]] Abnormal Final result DIFFERENTIAL, AUTOMATED[[id number]] Normal Final result DIFFERENTIAL, TECHNOLOGI...[[id number]] Abnormal Final result Please view results for these tests on the individual orders. URINALYSIS, REFLEX TO CULTURE (ECH ONLY) Narrative: The following orders were created for panel order URINALYSIS, REFLEX TO CULTURE (ECH ONLY). Procedure Abnormality Status --------- ------ URINALYSIS, REFLEX TO CU...[[id number]] Final result URINALYSIS, REFLEX TO CU...[[id number]] Abnormal Final result Please view results for these tests on the individual orders. URINALYSIS, REFLEX TO CULTURE (CUP ONLY) TSH PHOSPHORUS BLOOD GAS, VENOUS CULTURE, URINE, QUANTITATIVE BASIC METABOLIC PANEL THC METABOLITE, URINE CONFIRMATION GLUCOSE METER, POINT OF CARE (COMMUNICATION ORDER) GLUCOSE METER, POINT OF CARE (COMMUNICATION ORDER) GLUCOSE METER, POINT OF CARE (COMMUNICATION ORDER) GLUCOSE METER, POINT OF CARE (COMMUNICATION ORDER) GLUCOSE METER, POINT OF CARE (COMMUNICATION ORDER) GLUCOSE METER, POINT OF CARE (COMMUNICATION ORDER) GLUCOSE METER, POINT OF CARE (COMMUNICATION ORDER) GLUCOSE METER, POINT OF CARE (COMMUNICATION ORDER) Diet: Orders Placed This Encounter Procedures Heart Healthy Consistent Carbohydrate Diet : Sodium: 2 gm --- Number of Choices: 4 (60 grams) --- Fluid Restriction (ml): None Additional Diet Information: n/a Intake and Output: Intake/Output Summary (Last 24 hours) at 12/15/2022 9173 Last data filed at 12/15/2022 0583 Gross per 24 hour Intake 150 ml Output 1300 ml Net -1150 ml Patient Belongings and Home Medications Patient Belongings at Bedside Belongings at Bedside: None (12/15/22) Patient Belongings Sent Home (Does not apply to Ambulatory areas) Belongings Sent Home: None (12/15/22) Patient Belongings Sent to Safe/Locker Belongings Sent to Safe: None (12/15/22) Patient Medications Medications Brought by Patient?: No (12/15/22) Recommendations/Follow up Goals/Plan of Care: Admit for uncontrolled DM type II; complicated UTI, chest pain. BS 393, Dr. Ivy notified Consults not completed: n/a Anticipated tests/studies/procedures: n/a Medication Reconcilliation completed for this Admission? Yes documented in this encounter Plan of Treatment Upcoming Encounters Date Type Department Care Team (Late st Contact Info) Description 12/21/2022 4:00 PM EST Office Visit Endocrinology, [facility] [address] Floor [place] Nance [phone] Mercy Wolff PA-C [address] [place] [address] [place] Klein [phone] Pending Results Name Type Priority Associated Diagnoses Date /Time THC METABOLITE, URINE CONFIRMATION Lab Routine 12/15/2022 12:52 AM EDT CULTURE, WOUND, DEEP, AEROBIC Lab STAT 12/15/2022 5:08 PM EDT Scheduled Orders Name Type Priority Associated Diagnoses Orde r Schedule TSH Lab STAT Perform Now fo r 1 Occurrences starting 12/15/2022 until 12/15/2022 PHOSPHORUS Lab STAT Perform Now fo r 1 Occurrences starting 12/15/2022 until 12/15/2022 THC METABOLITE, URINE CONFIRMATION Lab Routine One Time for 1 Occurrences starting 12/15/2022 until 12/15/2022 Health Maintenance Due Date Last Done Comments [...] 09/09/2022, 0 09/17/2020, 08/15/2019, Additional history exists O2 ASSESSMENT COMPLETED IN PAST YEAR FOR COPD 12/18/2023 12/18/2022 GFR 12/19/2023 12/18/2022, 110 03/2022, 12/16/2022, Additional history exists Cologuard 01/19/2024 01/18/2021, 01/13/2021 Colorectal Cancer Screening [...] Not on filedocumented as of this encounter Procedures Procedure Name Priority Date/Time Associated Diagnosis Comments GLUCOSE METER, POINT OF CARE MAYA 12/18/2022 11:17 AM EDT LIPID PANEL - (ECH ONLY) Routine 12/18/2022 5:53 AM EDT BASIC METABOLIC PANEL Routine 12/18/2022 5:53 AM EDT CBC Routine 12/18/2022 5:53 AM EDT GLUCOSE METER, POINT OF CARE MAYA 12/17/2022 8:29 PM EDT VANCOMYCIN TROUGH Timed 12/17/2022 5:3 3 PM EDT GLUCOSE METER, POINT OF CARE MAYA 12/17/2022 3:59 PM EDT GLUCOSE METER, POINT OF CARE MAYA 12/17/2022 12:43 PM EDT GLUCOSE METER, POINT OF CARE MAYA 12/17/2022 11:37 AM EDT GLUCOSE METER, POINT OF CARE MAYA 12/17/2022 7:08 AM EDT BETA HYDROXYBUTYRATE - (ECH ONLY) Routine 12/17/2022 6:13 AM EDT BASIC METABOLIC PANEL Routine 12/17/2022 6:13 AM EDT CBC Routine 12/17/2022 6:13 AM EDT GLUCOSE METER, POINT OF CARE MAYA 12/17/2022 3:26 AM EDT GLUCOSE METER, POINT OF CARE MAYA 12/16/2022 9:33 PM EDT GLUCOSE METER, POINT OF CARE MAYA 12/16/2022 4:00 PM EDT GLUCOSE METER, POINT OF CARE MAYA 12/16/2022 11:08 AM EDT GLUCOSE METER, POINT OF CARE MAYA 12/16/2022 7:08 AM EDT BETA HYDROXYBUTYRATE - (ECH ONLY) Routine 12/16/2022 5:19 AM EDT BASIC METABOLIC PANEL Routine 12/16/2022 5:19 AM EDT CBC Routine 12/16/2022 5:19 AM EDT GLUCOSE METER, POINT OF CARE MAYA 12/15/2022 8:59 PM EDT INCISION & DRAINAGE Routine 12/15/2022 5 :15 PM EDT GLUCOSE METER, POINT OF CARE MAYA 12/15/2022 5:10 PM EDT CULTURE, WOUND, DEEP, AEROBIC STAT 12/15/2022 5:08 PM EDT EXTRA LAVENDER TOP Routine 12/15/2022 2: 08 PM EDT EXTRA TUBES Routine 12/15/2022 2:08 PM EDT BASIC METABOLIC PANEL STAT 12/15/2022 2:08 PM EDT GLUCOSE METER, POINT OF CARE [facility] 12/15/2022 12:04 PM EDT GLUCOSE METER, POINT OF CARE [facility] 12/15/2022 9:35 AM EDT GLUCOSE METER, POINT OF CARE [facility] 12/15/2022 6:34 AM EDT BETA HYDROXYBUTYRATE - (ECH ONLY) Routine 12/15/2022 6:20 AM EDT BASIC METABOLIC PANEL Routine 12/15/2022 6:20 AM EDT CBC Routine 12/15/2022 6:[address] CHEST/ABDOMEN/PELVIS WITH IV CONTRAST WITHOUT ORAL CONTRAST STAT 12/15/2022 2:[address] C SPINE WO CONTRAST STAT 2:[address] MAXILLOFACIAL WO CONTRAST STAT 12/15/2022 2:[address] HEAD/BRAIN WO CONTRAST STAT 12/15/2022 2:13 AM EDT BLOOD GAS, VENOUS MAYA 12/15/2022 1:0 7 AM EDT URINALYSIS, REFLEX TO CULTURE (ECH ONLY) STAT 12/15/2022 12:52 AM EDT DRUG SCREEN 10 PANEL UR AUTOMATED - (ECH ONLY) Add-on 12/15/2022 12:52 AM EDT URINALYSIS, REFLEX TO CULTURE STAT 12/15/2022 12:52 AM EDT URINALYSIS, REFLEX TO CULTURE (CUP ONLY) STAT 12/15/2022 12:52 AM EDT CULTURE, URINE, QUANTITATIVE STAT 12/15/2022 12:52 AM EDT BETA HYDROXYBUTYRATE - (ECH ONLY) Routine 12/15/2022 12:51 AM EDT DIFFERENTIAL, AUTOMATED STAT 12/16/19 12:51 AM EDT HEPATIC FUNCTION PANEL STAT 12:51 AM EDT BASIC METABOLIC PANEL STAT 12/15/2022 12:51 AM EDT CBC STAT 12/15/2022 12:51 AM EDT LIPASE STAT 12/15/2022 12:51 AM EDT CBC STAT 12/15/2022 12:51 AM EDT DIFFERENTIAL, TECHNOLOGIST REVIEW Routine 12/15/2022 12:51 AM EDT MAGNESIUM STAT 12/15/2022 12:51 AM EDT HC ECG TRACING ONLY STAT 12/15/2022 1 2:41 AM EDT Tachycardia documented in this encounter Results * (ABNORMAL) GLUCOSE METER, POINT OF CARE (12/18/2022 11:17 AM EDT) Glucose POC STAT Strip 314(H) 70 - 110 mg/dL 12/18/2022 11:31 AM EDT LABORATORY ECH Blood Capillary blood specimen / Unknown 12/18/2022 11:17 AM EDT 12/18/2022 11:31 AM EDT Brendon Yancey MD LAB POINT OF CA RE TEST DOCKED DEVICE UNSOLICITED RESULTS LABORATORY [address] * (ABNORMAL) BASIC METABOLIC PANEL (12/18/2022 5:53 AM EDT) Sodium 135 135 - 146 mmol/L 12/18/2022 6:28 AM EDT LABORATORY ECH Potassium 4.3 3.5 - 5.1 mmol/L 12/18/2022 6:28 AM EDT LABORATORY ECH Chloride 99 98 - 107 mmol/L 12/18/2022 6:28 AM EDT LABORATORY ECH CO2 - ECH 24 22 - 32 mmol/L 12/18/2022 6:28 AM EDT LABORATORY ECH Anion Gap 16 10 - 20 mmol/L 12/18/2022 6:28 AM EDT LABORATORY ECH BUN - ECH 26(H) 6 - 20 mg/dL 12/18/2022 6:28 AM EDT LABORATORY ECH Creatinine 1.0 0.7 - 1.2 mg/dL 12/18/2022 6:28 AM EDT LABORATORY ECH Estimated Glomerular Filtration Rate 91 12/18/2022 6:28 AM EDT LABORATORY ECH BUN/Creatinine Ratio 26.0(H) 12.0 - 20.0 12/18/2022 6:28 AM EDT LABORATORY ECH Glucose 282(H) 70 - 120 mg/dL 12/18/2022 6:28 AM EDT LABORATORY ECH Calcium 8.3(L) 8.4 - 10.2 mg/dL 12/18/2022 6:28 AM EDT LABORATORY E[facility] Blood Venous blood specimen / Unknown Venipuncture / Unknown 12/18/2022 5:53 AM EDT 12/18/2022 5:58 AM EDT Tommy Brewster PA-C LAB BLOOD ORDERABLE S LABORATORY E[facility] [address] * (ABNORMAL) CBC (12/18/2022 5:53 AM EDT) White Blood Cell Count 15.5(H) 4.0 - 10.5 K/uL 12/18/2022 6:02 AM EDT LABORATORY ECH Red Blood Cell Count 4.21(L) 4.70 - 6.00 12/18/2022 6:02 AM EDT LABORATORY ECH Hemoglobin 11.8(L) 13.5 - 18 g/dL 12/18/2022 6:02 AM EDT LABORATORY ECH Hematocrit 34.8(L) 42 - 52 % 12/18/2022 6:02 AM EDT LABORATORY ECH MCV 82.8 78.0 - 100.0 fl 12/18/2022 6:02 AM EDT LABORATORY ECH MCH 28.1 27.0 - 31.0 pg 12/18/2022 6:02 AM EDT LABORATORY ECH MCHC 33.9 32.5 - 36.0 g/dL 12/18/2022 6:02 AM EDT LABORATORY ECH RDW 12.8 11.5 - 14.0 % 12/18/2022 6:02 AM EDT LABORATORY E[facility] Platelet Count 516(H) 150 - 450 K/uL 12/18/2022 6:02 AM EDT LABORATORY ECH MPV 6.5 6.5 - 9.5 fL 12/18/2022 6:02 AM EDT LABORATORY E[facility] Blood Venous blood specimen / Unknown Venipuncture / Unknown 12/18/2022 5:53 AM EDT 12/18/2022 5:58 AM EDT Tommy Brewster PA-C LAB BLOOD ORDERABLE [place] [id number], [place] * (ABNORMAL) LIPID PANEL - (ECH ONLY) (12/18/2022 5:53 AM EDT) Cholesterol 183 <200 mg/dL 12/18/2022 6:28 AM EDT LABORATORY ECH Comment: Age <18 Years >=18 Years Desirable <170 mg/dL <200 mg/dL Borderline High 170-199 mg/dL 200-239 mg/dL High >=200 mg/dL >= 240 mg/dL Based on National Cholesterol Education program (NCEP) guidelines. Triglycerides 183(H) <150 mg/dL 12/18/2022 6:28 AM EDT LABORATORY ECH Comment: Normal <150 mg/dL Borderline High 150-199 mg/dL High 200-499 mg/dL Very High >499 mg/dL Based on National Cholesterol Education Program (NCEP) guidelines. HDL Cholesterol 44(L) >=60 mg/dL 12/18/2022 6:28 AM EDT LABORATORY ECH Comment: Age <18 Years >=18 Years Low (Undesirable) <35 mg/dL <40 mg/dL High (Desirable) >45 mg/dL >=60 mg/dL Based on National Cholesterol Education program (NCEP) guidelines. Non-HDL Cholesterol 139(H) <130 mg/dL 12/18/2022 6:28 AM EDT LABORATORY ECH Comment: Age <18 Years Acceptable <140 mg/dL Borderline High 140-159 mg/dL High >=160 mg/dL Age >=18 Years Optimal <130 mg/dL Near or Above Optimal 130-159 mg/dL Borderline High 160-189 mg/dL High 190-219 mg/dL Very High >=220 mg/dL LDL, Calculated 102(H) <100 mg/dL 12/18/2022 6:28 AM EDT LABORATORY ECH Comment: Age <18 Years Acceptable <110 mg/dL Borderline High 110-129 mg/dL High >=130 mg/dL Age >=18 Years Optimal <100 mg/dL Near or Above Optimal 100-129 mg/dL Borderline High 130-159 mg/dL High 160-189 mg/dL Very High >=190 mg/dL Based on National Cholesterol Education Program (NCEP) guidelines. VLDL, Calculated 37(H) 8 - 32 mg/dL 12/18/2022 6:28 AM EDT LABORATORY E[facility] Blood Venous blood specimen / Unknown Venipuncture / Unknown 12/18/2022 5:53 AM EDT 12/18/2022 5:58 AM EDT Brendon Yancey MD LAB BLOOD ORDER KISHA Performing Organization Address City/[facility]/ZIP Co de Phone Number LABORATORY [address] * (ABNORMAL) GLUCOSE METER, POINT OF CARE (12/17/2022 8:29 PM EDT) Pathologist [facility] Glucose POC STAT Strip 154(H) 70 - 110 mg/dL 12/17/2022 9:49 PM EDT LABORATORY ECH Device Comment Notified Nurse 12/17/2022 9:49 PM EDT LABORATORY E[facility] Blood Capillary blood specimen / Unknown 12/17/2022 8:29 PM EDT 12/17/2022 9:49 PM EDT Brendon Yancey MD LAB POINT OF CA RE TEST DOCKED DEVICE UNSOLICITED RESULTS Performing Organization Address [facility] de Phone Number LABORATORY [address] * (ABNORMAL) VANCOMYCIN TROUGH (12/17/2022 5:33 PM EDT) Pathologist [facility] Vancomycin, Trough 16.0(H) 5.0 - 10.0 ug/mL 12/17/2022 6:01 PM EDT LABORATORY ECH Comment: Peak Vancomycin levels should be collected 1 hour after the end of infusion (two hours after the dose is started), while the Trough levels should be collected 30 minutes prior to the dose. Peak and Trough levels should be collected ""around"" the same dose, with the Trough collected first, followed by administration of the drug and the subequent collection of a Peak level. The therapeutic ranges for the Vancomycin levels are as follows:" Peak: 20-40 ug/ml toxic: >40 ug/ml Trough: Bacteremia 10-15 ug/ml Pneumonia 15-20 ug/ml Endocarditis 15-20 ug/ml CODING COMPLIANCE SPECIALIST 20 ug/ml A copy of this report has been sent to the Pharmacy for interpretation. The Pharmacy will adjust the drug dosage based on this report. Refer any questions to the Pharmacy. Blood Venous blood specimen / Unknown Venipuncture / Unknown 12/17/2022 5:33 PM EDT 12/17/2022 5:43 PM EDT Ang Huang MD LAB BLOOD ORDERABLES Performing Organization Address City/[facility]/ZIP Co de Phone Number LABORATORY [address] * (ABNORMAL) GLUCOSE METER, POINT OF CARE (12/17/2022 3:59 PM EDT) Glucose POC STAT Strip 185(H) 70 - 110 mg/dL 12/17/2022 5:34 PM EDT [facility] Blood Capillary blood specimen / Unknown 12/17/2022 3:59 PM EDT 12/17/2022 5:34 PM EDT Brendon Yancey MD LAB POINT OF CA RE TEST DOCKED DEVICE UNSOLICITED RESULTS Performing Organization Address [facility] Phone Number LABORATORY [address] * (ABNORMAL) GLUCOSE METER, POINT OF CARE (12/17/2022 12:43 PM EDT) Glucose POC STAT Strip 225(H) 70 - 110 mg/dL 12/17/2022 12:56 PM EDT [facility] Blood Capillary blood specimen / Unknown 12/17/2022 12:43 PM EDT 12/17/2022 12:56 PM EDT Brendon Yancey MD LAB POINT OF CA RE TEST DOCKED DEVICE UNSOLICITED RESULTS Performing Organization Address [facility] Co de Phone Number LABORATORY [address] * (ABNORMAL) GLUCOSE METER, POINT OF CARE (12/17/2022 11:37 AM EDT) Glucose POC STAT Strip 291(H) 70 - 110 mg/dL 12/17/2022 11:50 AM EDT LABORATORY E[facility] Blood Capillary blood specimen / Unknown 12/17/2022 11:37 AM EDT 12/17/2022 11:50 AM EDT Brendon Yancey MD LAB POINT OF CA RE TEST DOCKED DEVICE UNSOLICITED RESULTS LABORATORY [address] * (ABNORMAL) GLUCOSE METER, POINT OF CARE (12/17/2022 7:08 AM EDT) [facility] Glucose POC STAT Strip 335(H) 70 - 110 mg/dL 12/17/2022 11:50 AM EDT [facility] Blood Capillary blood specimen / Unknown 12/17/2022 7:08 AM EDT 12/17/2022 11:50 AM EDT Brendon Yancey MD LAB POINT OF CA RE TEST DOCKED DEVICE UNSOLICITED RESULTS Performing Organization Address [facility] Co de Phone Number LABORATORY [address] * (ABNORMAL) BETA HYDROXYBUTYRATE - ([facility] ONLY) (12/17/2022 6:13 AM EDT) [facility] Beta Hydroxybutyrate 0.40(H) 0.02 - 0.27 mmol/L 12/17/2022 7:30 AM EDT LAB[facility]ATORY [facility] Blood Venous blood specimen / Unknown Venipuncture / Unknown 12/17/2022 6:13 AM EDT 12/17/2022 6:38 AM EDT Sky Ivy DO LAB BLOOD ORDER [facility] LABORATORY [address] * (ABNORMAL) CBC (12/17/2022 6:13 AM EDT) [facility] White Blood Cell Count 13.0(H) 4.0 - 10.5 K/uL 12/17/2022 7:23 AM EDT LABORATORY [facility] Red Blood Cell Count 3.85(L) 4.70 - 6.00 12/17/2022 7:23 AM EDT LABORATORY E[facility] Hemoglobin 10.8(L) 13.5 - 18 g/dL 12/17/2022 7:23 AM EDT LABORATORY E[facility] Hematocrit 32.1(L) 42 - 52 % 12/17/2022 7:23 AM EDT LABORATORY E[facility] MCV 83.3 78.0 - 100.0 fl 12/17/2022 7:23 AM EDT LABORATORY E[facility] MCH 28.0 27.0 - 31.0 pg 12/17/2022 7:23 AM EDT LABORATORY E[facility] MCHC 33.6 32.5 - 36.0 g/dL 12/17/2022 7:23 AM EDT LABORATORY E[facility] RDW 12.5 11.5 - 14.0 % 12/17/2022 7:23 AM EDT LABORATORY E[facility] Platelet Count 450 150 - 450 K/uL 12/17/2022 7:23 AM EDT LABORATORY E[facility] MPV 6.8 6.5 - 9.5 fL 12/17/2022 7:23 AM EDT LABORATORY E[facility] Blood Venous blood specimen / Unknown Venipuncture / Unknown 12/17/2022 6:13 AM EDT 12/17/2022 6:38 AM EDT Sky Ivy DO LAB BLOOD ORDER [facility] LABORATORY [facility] [address] * (ABNORMAL) BASIC METABOLIC PANEL (12/17/2022 6:13 AM EDT) Sodium 132(L) 135 - 146 mmol/L 12/17/2022 7:16 AM EDT LABORATORY E[facility] Potassium 3.9 3.5 - 5.1 mmol/L 12/17/2022 7:16 AM EDT LABORATORY E[facility] Chloride 98 98 - 107 mmol/L 12/17/2022 7:16 AM EDT LABORATORY E[facility] CO2 - ECH 25 22 - 32 mmol/L 12/17/2022 7:16 AM EDT LABORATORY E[facility] Anion Gap 13 10 - 20 mmol/L 12/17/2022 7:16 AM EDT LABORATORY E[facility] BUN - ECH 22(H) 6 - 20 mg/dL 12/17/2022 7:16 AM EDT LABORATORY E[facility] Creatinine 0.9 0.7 - 1.2 mg/dL 12/17/2022 7:16 AM EDT LABORATORY E[facility] Estimated Glomerular Filtration Rate 103 12/17/2022 7:16 AM EDT LABORATORY E[facility] BUN/Creatinine Ratio 24.4(H) 12.0 - 20.0 12/17/2022 7:16 AM EDT LABORATORY E[facility] Glucose 388(H) 70 - 120 mg/dL 12/17/2022 7:16 AM EDT LABORATORY E[facility] Calcium 7.8(L) 8.4 - 10.2 mg/dL 12/17/2022 7:16 AM EDT LABORATORY E[facility] Blood Venous blood specimen / Unknown Venipuncture / Unknown 12/17/2022 6:13 AM EDT 12/17/2022 6:38 AM EDT Sky Ivy DO LAB BLOOD ORDER [facility] LABORATORY [address] * (ABNORMAL) GLUCOSE METER, POINT OF CARE (12/17/2022 3:26 AM EDT) Glucose POC STAT Strip 191(H) 70 - 110 mg/dL 12/17/2022 3:38 AM EDT LABORATORY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 1:26 AM EDT LABORATORY [facility] Blood Venous blood specimen / Unknown Venipuncture / Unknown 12/15/2022 12:51 AM EDT 12/15/2022 12:55 AM EDT Gilberto Madrid MD LAB BLOOD ORD ERABLES Performing Organization Address [facility] Co de Phone Number LABORATORY [address] * (ABNORMAL) BASIC METABOLIC PANEL (12/15/2022 12:51 AM EDT) Pathologist [facility] Sodium 124(LL) 135 - 146 mmol/L 12/15/2022 1:27 AM EDT LABORATORY [facility] Potassium 4.1 3.5 - 5.1 mmol/L 12/15/2022 1:27 AM EDT LABORATORY [facility] Chloride 87(L) 98 - 107 mmol/L 12/15/2022 1:27 AM EDT LABORATORY [facility] CO2 - ECH 24 22 - 32 mmol/L 12/15/2022 1:27 AM EDT LABORATORY [facility] Anion Gap 17 10 - 20 mmol/L 12/15/2022 1:27 AM EDT LABORATORY [facility] BUN - ECH 33(H) 6 - 20 mg/dL 12/15/2022 1:27 AM EDT LABORATORY [facility] Creatinine 0.9 0.7 - 1.2 mg/dL 12/15/2022 1:27 AM EDT LABORATORY [facility] Estimated Glomerular Filtration Rate 103 12/15/2022 1:27 AM EDT LABORATORY [facility] BUN/Creatinine Ratio 36.7(H) 12.0 - 20.0 12/15/2022 1:27 AM EDT LABORATORY [facility] Glucose 453(HH) 70 - 120 mg/dL 12/15/2022 1:27 AM EDT LABORATORY [facility] Calcium 9.0 8.4 - 10.2 mg/dL 12/15/2022 1:27 AM EDT LABORATORY [facility] Blood Venous blood specimen / Unknown Venipuncture / Unknown 12/15/2022 12:51 AM EDT 12/15/2022 12:55 AM EDT Gilberto Madrid MD LAB BLOOD ORD ERABLES LABORATORY [facility] [address] * EKG (12/15/2022 12:41 AM EDT) 12/15/2022 12:4 1 AM EDT Narrative Procedure Note Deng Bustamante MD - 12/15/2022 12:41 AM EDT REASON FOR STUDY: VOMITING CONCLUSIONS: Sinus tachycardia Nonspecific J point elevation Clinical correlation required Confirmed by MARTÍNEZ GREWAL^[id number] ([id number]) on 12/15/2022 7:27:07AM Ventricular Rate: 109 Atrial Rate: 109 VT Interval: 150 QRS Duration: 90 QT/QTc: 340/457 ms P-R-T Zirconia: 44 : 53 : 50 degrees Gilberto Madrid MD EKG Performing Organization Address City/[facility] Co de Phone Number [facility] documented in this encounter Visit Diagnoses Diagnosis Complicated UTI (urinary tract infection)- Primary Urinary tract infection, site not specified Tachycardia Tachycardia, unspecified Dehydration Complicated UTI (urinary tract infection) Urinary tract infection, site not specified Gastroparesis Type 2 diabetes mellitus with hyperglycemia, unspecified whether intermediate manager insulin use (HCC) Chest pain Chest pain, unspecified Type 2 diabetes mellitus with diabetic neuropathy, unspecified (HCC) Hyperlipidemia Other and unspecified hyperlipidemia Gastroesophageal reflux disease without esophagitis Esophageal reflux HTN, goal below 140/80 Unspecified essential hypertension Type 2 diabetes mellitus 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, unspecified eye (HCC) Difficulty controlling anger Antisocial personality disorder (HCC) Antisocial personality disorder Pseudohyponatremia Unintentional weight loss Loss of weight Scalp abscess Cellulitis and abscess of other specified site documented in this encounter Administered Medications Inactive Administered Medications - up to 3 most recent administrations Medication Order MAR Action Action Date Dose Rate Site Acetaminophen (Ofirmev) inj 1,000 mg 1,000 mg, Intravenous, ONCE, 1 dose, On Wed12/15/22 at 0045, Administer over 15 Minutes, Administer undiluted over 15 minutes! NOTE: Maximum of 4000 mg per 24 hours of acetaminophen from all acetaminophen containing products. Given 12/15/2022 1:15 AM EDT 1,000 mg 400 mL/hr Antecubital Left Acetaminophen (Tylenol) tab 650 mg 650 mg, Oral, Q6H PRN Pain, Mild, Fever >38C(100.5F), Starting on Wed12/15/22 at 0447, Until Wed12/18/22 at 1801, Maximum of 4 grams (4000 mg) per day. Given 12/17/2022 10:13 AM EDT 650 mg Given 12/17/2022 3:43 AM EDT 650 mg Given 12/16/2022 7:54 AM EDT 650 mg cefTRIAXone in dextrose (Rocephin) IVPB 1 g IV Piggyback, 1 g, ONCE, 1 dose, On Wed12/15/22 at 0415, Administer over 30 Minutes New Bag 12/15/2022 4:15 AM EDT 1 g 100 mL/hr cefTRIAXone in dextrose (Rocephin) IVPB 1 g IV Piggyback, 1 g, Q24H, First dose (after last reorder) on Wed12/15/22 at 2200, Until Discontinued, Administer over 30 Minutes New Bag 12/17/2022 8:35 PM EDT 1 g 100 mL/hr New Bag 12/16/2022 9:52 PM EDT 1 g 100 mL/hr New Bag 12/15/2022 9:16 PM EDT 1 g 100 mL/hr cefTRIAXone in dextrose (Rocephin) IVPB 1 g IV Piggyback, 1 g, ONCE, 1 dose, On Wed12/18/22 at 1215, Administer over 30 Minutes New Bag 12/18/2022 12:57 PM EDT 1 g 100 mL/hr dextrose 50 % inj 25 mL 25 mL, IV Push, PRN Hypoglycemia, Other, For blood glucose 54 - 69 mg/dL or 70 - 100 mg/dL with symptoms AND patient is unresponsive, NPO, OR unable to swallow, Starting on Wed12/15/22 at 0534, Until Wed12/18/22 at 1801, Administer IV. Recheck blood glucose after 15 minutes. Notify provider. dextrose 50 % inj 50 mL 50 mL, IV Push, PRN Hypoglycemia, Other, For blood glucose below 54 mg/dL AND patient unresponsive, NPO, OR unable to swallow, Starting on Wed12/15/22 at 0534, Until Wed12/18/22 at 1801, Administer IV. Recheck blood glucose in 15 minutes. Notify provider. Docusate Sodium (Colace) cap 100 mg 100 mg, Oral, DAILY PRN Constipation, Starting on Wed12/15/22 at 0447, Until Wed12/18/22 at 1801, For oral administration ONLY, if route of administration is other than oral and alternative product must be ordered. famotidine in nacl (Pepcid) ivpb 20 mg 20 mg, IV Piggyback, ONCE, On Wed12/15/22 at 0045, For 1 dose New Bag 12/15/2022 2:06 AM EDT 20 mg 200 mL/hr Antecubital Left glucagon (Glucagen) inj 1 mg 1 mg, Intramuscular, PRN Hypoglycemia, Other, If patient is unresponsive, or NPO and has no IV access, Starting on Wed12/15/22 at 0534, Until Wed12/18/22 at 1801, NPO and no IV access with either 1) blood glucose less than 100 mg/dL and symptomatic OR 2) blood glucose less than 70 mg/dL and asymptomatic Glucose (Glutose 15) 40 % gel 15 g of glucose 15 g of glucose, Oral, PRN Hypoglycemia (low sugar), Other, For blood glucose 54 - 69 mg/dL or 70 - 100 mg/dL with symptoms AND patient alert WITH difficulty chewing/swallowing, Starting on Wed12/15/22 at 0534, Until Wed12/18/22 at 1801, Administer gel. Recheck blood glucose after 15 minutes. Notify provider. 37.5 gram tube = 15 grams glucose = 1 each Glucose (Glutose 15) 40 % gel 30 g of glucose 30 g of glucose, Oral, PRN Hypoglycemia (low sugar), Other, For blood glucose below 54 mg/dL AND patient alert WITH difficulty chewing/swallowing, Starting on Wed12/15/22 at 0534, Until Wed12/18/22 at 1801, Administer gel. Recheck blood glucose after 15 minutes. Notify provider. 37.5 gram tube = 15 grams glucose = 1 each insulin aspart (novoLOG) inj flexpen 12 Units 12 Units, Subcutaneous, ONCE, On Wed12/15/22 at 1045, For 1 dose Given 12/15/2022 10:51 AM EDT 12 Units Arm Left Upper insulin aspart (novoLOG) inj flexpen Subcutaneous, ACHS, First dose on Wed12/15/22 at 0730, Until Discontinued, HIGH DOSE (Moderately Insulin Resistance): Sliding Scale Correctional insulin may be given if the patient is NPO. Dose based on standard build from Insulin Calculator. Do not modify insulin doses in administration instructions! Given 12/18/2022 12:00 PM EDT 12 Units Abdomen Right Lower Given 12/18/2022 7:30 AM EDT 9 Units Ar m Right Upper Given 12/17/2022 8:36 PM EDT 3 Units Ar m Left Upper insulin aspart (novoLOG) inj flexpen Subcutaneous, WITH MEALS, First dose on Wed12/15/22 at 1200, Until Discontinued, Dose equals 1 unit of insulin per 10 grams of carbohydrate consumed. Hold dose if patient does not eat Given 12/18/2022 12:00 PM EDT 5 Units Abdomen Right Upper Given 12/18/2022 9:26 AM EDT 4 Units Ar m Right Upper Given 12/17/2022 5:49 PM EDT 8 Units Ar m Right Upper Insulin Glargine (Lantus) pen 15 Units 15 Units, Subcutaneous, AMINSULIN, First dose on Wed12/16/22 at 0815, Until Discontinued, "IF DOSE IS HELD- NOTIFY COVERING PROVIDER!" Given 12/16/2022 9:29 AM EDT 15 Units Deltoid Right Upper Insulin Glargine (Lantus) pen 20 Units 20 Units, Subcutaneous, AMINSULIN, First dose (after last modification) on Wed12/17/22 at 0900, Until Discontinued, "IF DOSE IS HELD- NOTIFY COVERING PROVIDER!" Given 12/17/2022 8:04 AM EDT 20 Units Deltoid Left Upper Insulin Glargine (Lantus) pen 20 Units 20 Units, Subcutaneous, BID (.AM/PM), First dose (after last modification) on Wed12/17/22 at 2100, Until Discontinued, "IF DOSE IS HELD- NOTIFY COVERING PROVIDER!" Given 12/18/2022 9:26 AM EDT 20 Units Arm Right Upper Given 12/17/2022 8:35 PM EDT 20 Units Ar m Right Upper Ioversol (Optiray 320) inj 75 mL 75 mL, Intravenous, ONCE, On Wed12/15/22 at 0245, For 1 dose, Radiology Medication Routing (Non-IR) Given 12/15/2022 1:57 AM EDT 75 mL A ntecubital Left Lisinopril (Prinivil) tab 2.5 mg 2.5 mg, Oral, Daily(AM), First dose on Wed12/15/22 at 1400, Until Discontinued Given 12/18/2022 9:27 AM EDT 2.5 mg Given 12/17/2022 8:02 AM EDT 2.5 mg Given 12/16/2022 7:53 AM EDT 2.5 mg magnesium chloride ER (Mag-64) tab 128 mg 128 mg, Oral, HS, First dose on Wed12/16/22 at 0045, Until Discontinued, Each tablet contains 64 mg elemental Magnesium Due to various manufacturers, tablets labeled 70mg are considered to be equivalent Given 12/17/2022 8:33 PM EDT 128 mg Given 12/16/2022 9:51 PM EDT 128 mg Given 12/16/2022 1:43 AM EDT 128 mg Mirtazapine (Remeron) tab 15 mg 15 mg, Oral, HS, First dose (after last modification) on Wed12/15/22 at 2200, Until Discontinued Given 12/17/2022 8:33 PM EDT 15 mg Given 12/16/2022 9:51 PM EDT 15 mg Given 12/15/2022 9:16 PM EDT 15 mg Nitroglycerin (Nitro-Bid) 2 % ointment 0.5 Inch 0.5 Inch, Transdermal, ONCE, On Wed12/15/22 at 0845, For 1 dose, Hold for 6 hours prior to Stress Test and notify service if dose is held 1 inch = 1 packet = 1 gram Given 12/15/2022 8:14 AM EDT 0.5 Inches Chest Left Nitroglycerin (Nitro-Bid) 2 % ointment 0.5 Inch 0.5 Inch, Transdermal, ONCE, On Wed12/15/22 at 1800, For 1 dose, Hold for 6 hours prior to Stress Test and notify service if dose is held 1 inch = 1 packet = 1 gram Given 12/15/2022 5:55 PM EDT 0.5 Inches Chest Right Normosol-R infusion Intravenous, at 100 mL/hr, CONTINUOUS, Starting on Wed12/15/22 at 0530, Until Wed12/15/22 at 1007 New 12/15/2022 8:18 AM EDT 100 mL/hr Normosol-R infusion Intravenous, at 150 mL/hr, CONTINUOUS, Starting on Wed12/15/22 at 1045, Until Wed12/15/22 at 1529 Rate Change 12/15/2022 10:45 AM EDT 150 mL/hr Normosol-R infusion Intravenous, at 150 mL/hr, CONTINUOUS, Starting on Wed12/15/22 at 1715, Until Wed12/16/22 at 0314 [facility] 12/15/2022 4:59 PM EDT 150 mL/hr NSS 0.9% 1,000 mL bolus infusion Peripheral IV, at 1,000 mL/hr Administer over 60 Minutes, Administer entire volume within 60 minutes or less., ONCE, 1 dose, On Wed12/15/22 at 0045 12/15/2022 2:47 AM EDT 1,000 mL 1000 mL/hr Antecubital Left NSS 0.9% 1,000 mL bolus infusion Peripheral IV, at 1,000 mL/hr Administer over 60 Minutes, Administer entire volume within 60 minutes or less., ONCE, 1 dose, On Wed12/15/22 at 0430 New 12/15/2022 6:27 AM EDT 1,000 mL 1000 mL/hr ondansetron (Zofran) inj 4 mg 4 mg, IV Push, Q6H PRN Nausea, Starting on Wed12/15/22 at 0447, Until Wed12/18/22 at 1801 pantoprazole (Protonix) tab 40 mg 40 mg, Oral, Daily(AM), First dose on Wed12/15/22 at 0900, Until Discontinued, This med should NOT be Crushed or Chewed Given 12/18/2022 9:27 AM EDT 40 mg Given 12/17/2022 8:03 AM EDT 40 mg Given 12/16/2022 7:54 AM EDT 40 mg Pregabalin (Lyrica) cap 75 mg 75 mg, Oral, Daily(AM), First dose (after last modification) on Wed12/15/22 at 0900, Until Discontinued Given 12/18/2022 9:26 AM EDT 75 mg Given 12/17/2022 8:02 AM EDT 75 mg Given 12/16/2022 7:53 AM EDT 75 mg sodium chloride 0.9 % flush/inj 3 mL 3 mL, IV Push, PRN Other, Line Patency, Starting on Wed12/15/22 at 0446, Until Wed12/18/22 at 1801, Do not flush if lock, PICC, or central line not in place, IV infusing or unable to flush traMADol (Ultram) tab 25 mg 25 mg, Oral, Q6H PRN Pain, Mild, Pain, Moderate, Pain, Severe, Starting on Wed12/16/22 at 1514, Until Wed12/18/22 at 1801 Given 12/18/2022 5:26 AM EDT 2 5 mg Given 12/17/2022 8:32 PM EDT 25 mg Given 12/17/2022 6:44 AM EDT 25 mg traMADol (Ultram) tab 50 mg 50 mg, Oral, ONCE, On Wed12/16/22 at 0100, For 1 dose Given 12/16/2022 1:43 AM EDT 50 mg Trolamine Salicylate (Arthricream) cream Topical, Q4H PRN leg/feet pain, Starting on Wed12/16/22 at 0016, Until Wed12/18/22 at 1801, Apply to both legs and feet every 4 hours as needed for pain Vancomycin (Vancocin) 2000 mg in 400 mL ivpb LOCKED DOSE 2,000 mg, IV Piggyback, ONCE, 1 dose, On Wed12/15/22 at 1800 New Bag 12/15/2022 6:01 PM EDT 2,000 mg 2 00 mL/hr Vancomycin 1250 mg in 250 mL ivpb LOCKED DOSE 1,250 mg, IV Piggyback, Q12H, First dose on Wed12/16/22 at 0600, Until Discontinued New Bag 12/18/2022 5:19 AM EDT 1,250 mg 166.67 mL/hr New Bag 12/17/2022 6:26 PM EDT 1,250 mg 166.67 mL/hr New Bag 12/17/2022 5:16 AM EDT 1,250 mg 166.67 mL/hr Hand Right documented in this encounter Active and Recently Administered Medications Times are shown in EDT. Scheduled Medication Order 12/16/2022 12/17/2022 12/18/2022 cefTRIAXone in dextrose (Rocephin) IVPB 1 g (CANCELED) IV Piggyback, 1 g, Q24H, First dose (after last reorder) on Wed12/15/22 at 2200, Until Discontinued, Administer over 30 Minutes 2152 (New Bag - Provider: Kiesha Montoya, JAMIE)222 (Finish Infusion - Provider: Kiesha Montoya, RN) 2034 (New Bag - Provider: Nola Duncan RN) cefTRIAXone in dextrose (Rocephin) IVPB 1 g (COMPLETED) IV Piggyback, 1 g, ONCE, 1 dose, On Wed12/18/22 at 1215, Administer over 30 Minutes 1257 (New Bag - Provider: Dexter Oleary RN)1344 (Stopped - Provider: Dexter Oleary RN) insulin aspart (novoLOG) inj flexpen Subcutaneous, ACHS, First dose on Wed12/15/22 at 0730, Until Discontinued, HIGH DOSE (Moderately Insulin Resistance): Sliding Scale Correctional insulin may be given if the patient is NPO. Dose based on standard build from Insulin Calculator. Do not modify insulin doses in administration instructions! 0756 (Given - Provider: Stephenie Osorio RN)1306 (Given - Provider: Stephenie Osorio RN)1820 (Given - Provider: Stephenie Osorio RN)2151 (Given - Provider: Kiesha Montoya, JAMIE) 0907 (Given - Provider: Stephenie Osorio RN)1348 (Given - Provider: Stephenie Osorio, JAMIE)1349 (Not Given - Provider: Stephenie Osorio RN - Reason: Other-Notify Provider - Comment: double charted)2035 (Given - Provider: Nola Duncan RN) 07 (Given - Provider: Dexter Oleary RN)1200 (Given - Provider: Dexter Oleary RN) insulin aspart (novoLOG) inj flexpen Subcutaneous, WITH MEALS, First dose on Wed12/15/22 at 1200, Until Discontinued, Dose equals 1 unit of insulin per 10 grams of carbohydrate consumed. Hold dose if patient does not eat 09 (Given - Provider: Stephenie Osorio RN - Comment: 46=4.6=5u)1306 (Given - Provider: Stephenie Osorio RN - Comment: 90)1820 (Given - Provider: Stephenie Osorio RN - Comment: 113) 09 (Given - Provider: Stephenie Osorio RN - Comment: 19)1352 (Given - Provider: Stephenie Osorio RN)1749 (Given - Provider: Nola Duncan RN - Comment: pt ate 45 grams of carbs. Additional 3 units given for sliding scale amount.) 925 (Given - Provider: Dexter Oleary RN)1199 (Given - Provider: Dexter Oleary RN) Insulin Glargine (Lantus) pen 15 Units (CANCELED) 15 Units, Subcutaneous, AMINSULIN, First dose on Wed12/16/22 at 0815, Until Discontinued, "IF DOSE IS HELD- NOTIFY COVERING PROVIDER!" 928 (Given - Provider: Stephenie Osorio RN) Insulin Glargine (Lantus) pen 20 Units (CANCELED) 20 Units, Subcutaneous, AMINSULIN, First dose (after last modification) on Wed12/17/22 at 0900, Until Discontinued, "IF DOSE IS HELD- NOTIFY COVERING PROVIDER!" 803 (Given - Provider: Stephenie Osorio RN) Insulin Glargine (Lantus) pen 20 Units 20 Units, Subcutaneous, BID (.AM/PM), First dose (after last modification) on Wed12/17/22 at 2100, Until Discontinued, "IF DOSE IS HELD- NOTIFY COVERING PROVIDER!" 2034 (Given - Provider: Nola Duncan RN) 09 (Given - Provider: Dexter Oleary, JAMIE) Lisinopril (Prinivil) tab 2.5 mg 2.5 mg, Oral, Daily(AM), First dose on Wed12/15/22 at 1400, Until Discontinued 752 (Given - Provider: Stephenie Osorio RN) 801 (Given - Provider: Stephenie Osorio RN) 926 (Given - Provider: Dexter Oleary, JAMIE) magnesium chloride ER (Mag-64) tab 128 mg 128 mg, Oral, HS, First dose on Wed12/16/22 at 0045, Until Discontinued, Each tablet contains 64 mg elemental Magnesium Due to various manufacturers, tablets labeled 70mg are considered to be equivalent 142 (Given - Provider: Henrry Baum RN)2150 (Given - Provider: Kiesha Montoya RN) 2032 (Given - Provider: Nola Duncan RN) Mirtazapine (Remeron) tab 15 mg 15 mg, Oral, HS, First dose (after last modification) on Wed12/15/22 at 2200, Until Discontinued 2150 (Given - Provider: Kiesha Montoya RN) 2032 (Given - Provider: Nola Duncan RN) pantoprazole (Protonix) tab 40 mg 40 mg, Oral, Daily(AM), First dose on Wed12/15/22 at 0900, Until Discontinued, This med should NOT be Crushed or Chewed 753 (Given - Provider: Stephenie Osorio RN) 802 (Given - Provider: Stephenie Osorio RN) 926 (Given - Provider: Dexter Oleary, JAMIE) Pregabalin (Lyrica) cap 75 mg 75 mg, Oral, Daily(AM), First dose (after last modification) on Wed12/15/22 at 0900, Until Discontinued 752 (Given - Provider: Stephenie Osorio RN) 801 (Given - Provider: Stephenie Osorio RN) 925 (Given - Provider: Dexter Oleary, JAMIE) traMADol (Ultram) tab 50 mg (COMPLETED) 50 mg, Oral, ONCE, On Wed12/16/22 at 0100, For 1 dose 0143 (Given - Provider: Henrry Baum RN) Vancomycin 1250 mg in 250 mL ivpb LOCKED DOSE (CANCELED) 1,250 mg, IV Piggyback, Q12H, First dose on Wed12/16/22 at 0600, Until Discontinued 0525 (New Bag - Provider: Henrry Baum RN)1655 (New Bag - Provider: Stephenie Osorio RN) 0516 (New Bag - Provider: Kiesha Montoya, JAMIE)1826 (New Bag - Provider: Nola Duncan, JAMIE) 0519 (New Bag - Provider: Ruma Burton RN) PRN Medication Order 12/16/2022 12/17/2022 12/18/2022 Acetaminophen (Tylenol) tab 650 mg 650 mg, Oral, Q6H PRN Pain, Mild, Fever >38C(100.5F), Starting on Wed12/15/22 at 0447, Until Wed12/18/22 at 1801, Maximum of 4 grams (4000 mg) per day. 0754 (Given - Provider: Stephenie Osorio RN - Comment: 08/24) 0343 (Given - Provider: Kiesha Montoya, JAMIE)1013 (Given - Provider: Stephenie Osorio RN - Comment: 07/25 DUGAN) dextrose 50 % inj 25 mL 25 mL, IV Push, PRN Hypoglycemia, Other, For blood glucose 54 - 69 mg/dL or 70 - 100 mg/dL with symptoms AND patient is unresponsive, NPO, OR unable to swallow, Starting on Wed12/15/22 at 0534, Until Wed12/18/22 at 1801, Administer IV. Recheck blood glucose after 15 minutes. Notify provider. dextrose 50 % inj 50 mL 50 mL, IV Push, PRN Hypoglycemia, Other, For blood glucose below 54 mg/dL AND patient unresponsive, NPO, OR unable to swallow, Starting on Wed12/15/22 at 0534, Until Wed12/18/22 at 1801, Administer IV. Recheck blood glucose in 15 minutes. Notify provider. Docusate Sodium (Colace) cap 100 mg 100 mg, Oral, DAILY PRN Constipation, Starting on Wed12/15/22 at 0447, Until Wed12/18/22 at 1801, For oral administration ONLY, if route of administration is other than oral and alternative product must be ordered. glucagon (Glucagen) inj 1 mg 1 mg, Intramuscular, PRN Hypoglycemia, Other, If patient is unresponsive, or NPO and has no IV access, Starting on Wed12/15/22 at 0534, Until Wed12/18/22 at 1801, NPO and no IV access with either 1) blood glucose less than 100 mg/dL and symptomatic OR 2) blood glucose less than 70 mg/dL and asymptomatic Glucose (Glutose 15) 40 % gel 15 g of glucose 15 g of glucose, Oral, PRN Hypoglycemia (low sugar), Other, For blood glucose 54 - 69 mg/dL or 70 - 100 mg/dL with symptoms AND patient alert WITH difficulty chewing/swallowing, Starting on Wed12/15/22 at 0534, Until Wed12/18/22 at 1801, Administer gel. Recheck blood glucose after 15 minutes. Notify provider. 37.5 gram tube = 15 grams glucose = 1 each Glucose (Glutose 15) 40 % gel 30 g of glucose 30 g of glucose, Oral, PRN Hypoglycemia (low sugar), Other, For blood glucose below 54 mg/dL AND patient alert WITH difficulty chewing/swallowing, Starting on Wed12/15/22 at 0534, Until Wed12/18/22 at 1801, Administer gel. Recheck blood glucose after 15 minutes. Notify provider. 37.5 gram tube = 15 grams glucose = 1 each ondansetron (Zofran) inj 4 mg 4 mg, IV Push, Q6H PRN Nausea, Starting on Wed12/15/22 at 0447, Until Wed12/18/22 at 1801 sodium chloride 0.9 % flush/inj 3 mL 3 mL, IV Push, PRN Other, Line Patency, Starting on Wed12/15/22 at 0446, Until Wed12/18/22 at 1801, Do not flush if lock, PICC, or central line not in place, IV infusing or unable to flush traMADol (Ultram) tab 25 mg 25 mg, Oral, Q6H PRN Pain, Mild, Pain, Moderate, Pain, Severe, Starting on Wed12/16/22 at 1514, Until Wed12/18/22 at 1801 1633 (Given - Provider: Stephenie Osorio RN - Comment: 11/24) 0644 (Given - Provider: Kiesha Montoya RN)2031 (Given - Provider: Nola Duncan RN) 0526 (Given - Provider: Ruma Burton RN) Trolamine Salicylate (Arthricream) cream Topical, Q4H PRN leg/feet pain, Starting on Wed12/16/22 at 0016, Until Wed12/18/22 at 1801, Apply to both legs and feet every 4 hours as needed for pain documented in this encounter Advance Directives Latest Code Status on File Code Status Date Activated Date Inactivated Comments Full Code 12/15/2022 4:47 AM 12/18/2022 6:06 PM This order reflects the patients wishes and were consensually agreed upon. Question Answer Comments Discussion of Advance Directives occurred with: Patient Does the patient have a Living Will? No Does the patient have Health Care Power of Senior Production Supervisor? No Code Status History Code Status Date Activated Date Inactivated Comments Full Code 06/07/2018 12:21 AM 06/14/2018 5:15 PM This order reflects the patients wishes and were consensually agreed upon. Question Answer Comments Discussion of Advance Directives occurred with: Patient Does the patient have a Living Will? No Does the patient have Health Care Power of Senior Production Supervisor? No Full Code 04/16/2014 9:08 PM 04/25/2014 5:20 PM This o rder reflects the patients wishes and were consensually agreed upon. Care Teams Drum Builder Relationship Specialty Start Date End Date Yaima Genao MD [place] [id number] PCP - General Family Medicine 11/16/22 documented as of this encounter
--- OUTSIDE RECORDS SUMMARY | 2022-12-29 21:27 | External Medical Summary ---
Author Name Unknown Address Unknown Organization K0[place] [address] Laboratory Report Ordering Provider Test Date Status DEFAULT,POCT 12/18/2022 11:17:41 Final Observation Date Value Abnormality Reference (Units ) Status [facility] GLUCOSE POC STAT STRIP 12/18/2022 11:17:41 314 Above high normal 70-110 (mg/dL) [place] [address]
--- OUTSIDE RECORDS SUMMARY | 2022-12-29 21:27 | External Medical Summary ---
Author Name Unknown Address Unknown Organization [place] [address] Laboratory Report Ordering Provider Test Date Status DEFAULT,POCT 12/15/2022 17:10:04 Final Observation Date Value Abnormality Reference (Units ) Status [facility] GLUCOSE POC STAT STRIP 12/15/2022 17:10:04 202 Above high normal 70-110 (mg/dL) [place] [address]
--- OUTSIDE RECORDS SUMMARY | 2022-12-29 21:27 | External Medical Summary ---
Author Name Unknown Address Unknown Organization K0N:[facility], [place] [address] Laboratory Report Ordering Provider Test Date Status TARIQ GUZMAN 12/16/2022 05:19:00 Final Observation Date Value Abnormality Reference (Units ) Status [facility] SODIUM 12/16/2022 05:19:00 130 Below low normal 135-146 (mmol/L) Final [facility] POTASSIUM 12/16/2022 05:19:00 4.0 3.5-5.1 (mmol/L) Final [facility] CHLORIDE 12/16/2022 05:19:00 98 98-107 (mmol/L) Final [facility] CO2 12/16/2022 05:19:00 24 22-32 (mmol/L) Final [facility] ANION GAP 12/16/2022 05:19:00 12 10-20 (mmol/L) Final [facility] BUN 12/16/2022 05:19:00 22 Above high normal 6-20 (mg/dL) Final [facility] CREATININE 12/16/2022 05:19:00 0.9 0.7-1.2 (mg/dL) Final [facility] ESTIMATED GLOMERULAR FILTRATION RATE 12/16/2022 05:19:00 103 Final [facility] BUN/CREATININE RATIO 12/16/2022 05:19:00 24.4 Above high normal 12.0-20.0 Final [facility] GLUCOSE 12/16/2022 05:19:00 310 Above high normal 70-120 (mg/dL) Final [facility] CALCIUM 12/16/2022 05:19:00 7.8 Below low normal 8.4-10.2 (mg/dL) Final Performing Location [facility], [place] [address]
--- OUTSIDE RECORDS SUMMARY | 2022-12-29 21:27 | External Medical Summary | Summary of Care ---
Author Name Unknown Organization [facility] Address [address] [place] [address] Phone [phone] Care Team Providers Care Primer Inserting Machine Operator Name Role Phone Yaima Genao MD Primary Care Provider [phone] Reason for Visit * Reason Onset Date Comments case management 12/21/2022 Encounter Details Date Type Department Care Team (Late st Contact Info) Description 12/21/2022 Major Gifts Director Telephone [facility] [address] [place] [address] Lore Martínez RN [address] [place] [address] case management Allergies Active Allergy Reactions Criticality Noted Date Comments Bee Venom Anaphylaxis High 04/16/2014 Penicillins Hives Medium 07/21/2013 documented as of this encounter (statuses as of 12/21/2022) Medications Medication Sig Dispensed Refills Start Date [...] bedtime. 30 Tablet 0 12/18/2022 01/17/2023 Active NovoLOG [...] is 50 units per day 0 12/18/2022 Active Atorvastatin Calcium 20 MG Oral Tablet (Lipitor) Take 1 Tablet by mouth in the morning. 30 Tablet 0 12/18/2022 01/17/2023 Active Cephalexin 500 MG Oral Capsule Take 1 Capsule by mouth in the morning and 1 Capsule at noon and 1 Capsule in the evening and 1 Capsule before bedtime. Do all this for 3 days. 12 Capsule 0 12/18/2022 12/21/2022 Active documented as of this encounter (statuses as of 12/21/2022) Active Problems Problem Noted Date Diagnosed Date [...] as of this encounter (statuses as of 12/21/2022) Resolved Problems Problem Noted Date Diagnosed Date Resolved Date Complicated UTI (urinary tract infection) 12/15/2022 12/18/2022 Pseudohyponatremia 12/15/2022 3 Scalp abscess 12/15/2022 12/18/2022 Food insecurity 09/23/2020 10/01/2022 Overview: Per [facility] Protocol DM type 2, not at goal 04/11/201911/13 Overview: Duplicated on [facility] (current) use of insulin 12/29/2018 04/11/2019 Cannabis [...] as of this encounter (statuses as of 12/21/2022) Immunizations Name Administration Dates Next Due TDAP [...] Telephone Encounter - Lore Martínez RN - 12/21/2022 9:26 AM EST Follow-up Post Discharge Attempted Phone Call First Attempt Call Outcome Left Voicemail/Message Plan To attempt another outreach documented in this encounter Plan of Treatment Health Maintenance Due Date Last Done Comments [...] the patient have Health Care Power of Cross Country Truck Driver? No Code Status History Code Status Date Activated Date Inactivated Comments Full Code 06/07/2018 12:21 AM 06/14/2018 5:15 PM This order reflects the patients wishes and were consensually agreed upon. Question Answer Comments Discussion of Advance Directives occurred with: Patient Does the patient have a Living Will? No Does the patient have Health Care Power of Cross Country Truck Driver? No Full Code 04/16/2014 9:08 PM 04/25/2014 5:20 PM This o rder reflects the patients wishes and were consensually agreed upon. Care Teams Primer Inserting Machine Operator Relationship Specialty Start Date End Date Yaima Genao MD [address] [id number] PCP - General Family Medicine 11/16/22 documented as of this encounter
--- OUTSIDE RECORDS SUMMARY | 2022-12-29 21:27 | External Medical Summary ---
Author Name Unknown Address Unknown Organization K0N:[facility], [place] [address] Laboratory Report Ordering Provider Test Date Status TARIQ GUZMAN 12/17/2022 06:13:00 Final Observation Date Value Abnormality Reference (Units ) Status [facility] WHITE BLOOD CELL COUNT 12/17/2022 06:13:00 13.0 Above high normal 4.0-10.5 (K/uL) Final [facility] RED BLOOD CELL COUNT 12/17/2022 06:13:00 3.85 Below low normal 4.70-6.00 Final Hemoglobin 12/17/2022 06:13:00 10.8 Below low normal 13.5-18 (g/dL) Final HCT 12/17/2022 06:13:00 32.1 Below low normal 42-52 (%) Final [facility] MEAN CORPUSCULAR VOLUME 12/17/2022 06:13:00 83.3 78.0-100.0 (fl) Final [facility] MCH 12/17/2022 06:13:00 28.0 27.0-31.0 (pg) Final [facility] MCHC 12/17/2022 06:13:00 33.6 32.5-36.0 (g/dL) Final [facility] RED CELL DIST WIDTH 12/17/2022 06:13:00 12.5 11.5-14.0 (%) Final [facility] PLATELET COUNT 12/17/2022 06:13:00 450 150-450 (K/uL) Final [facility] MPV 12/17/2022 06:13:00 6.8 6.5-9.5 (fL) Final Performing Location [facility], [place] [address]
--- OUTSIDE RECORDS SUMMARY | 2022-12-29 21:27 | External Medical Summary ---
Author Name Unknown Address Unknown Organization K0N:[facility], [place] [address] Laboratory Report Ordering Provider Test Date Status TARIQ GUZMAN 12/16/2022 05:19:00 Final Observation Date Value Abnormality Reference (Units ) Status [facility] WHITE BLOOD CELL COUNT 12/16/2022 05:19:00 14.0 Above high normal 4.0-10.5 (K/uL) Final [facility] RED BLOOD CELL COUNT 12/16/2022 05:19:00 3.85 Below low normal 4.70-6.00 Final Hemoglobin 12/16/2022 05:19:00 10.9 Below low normal 13.5-18 (g/dL) Final HCT 12/16/2022 05:19:00 32.0 Below low normal 42-52 (%) Final [facility] MEAN CORPUSCULAR VOLUME 12/16/2022 05:19:00 83.0 78.0-100.0 (fl) Final [facility] MCH 12/16/2022 05:19:00 28.2 27.0-31.0 (pg) Final [facility] MCHC 12/16/2022 05:19:00 34.0 32.5-36.0 (g/dL) Final [facility] RED CELL DIST WIDTH 12/16/2022 05:19:00 12.6 11.5-14.0 (%) Final [facility] PLATELET COUNT 12/16/2022 05:19:00 441 150-450 (K/uL) Final [facility] MPV 12/16/2022 05:19:00 6.7 6.5-9.5 (fL) Final Performing Location [facility], [place] [address]
--- OUTSIDE RECORDS SUMMARY | 2022-12-29 21:27 | External Medical Summary ---
Author Name Unknown Address Unknown Organization K0N:[facility], [place] [address] Laboratory Report Ordering Provider Test Date Status BRIAN TOUSSAINT 12/18/2022 05:53:00 Final Observation Date Value Abnormality Reference (Units ) Status [facility] SODIUM 12/18/2022 05:53:00 135 135-146 (mmol/L) Final [facility] POTASSIUM 12/18/2022 05:53:00 4.3 3.5-5.1 (mmol/L) Final [facility] CHLORIDE 12/18/2022 05:53:00 99 98-107 (mmol/L) Final [facility] CO2 12/18/2022 05:53:00 24 22-32 (mmol/L) Final [facility] ANION GAP 12/18/2022 05:53:00 16 10-20 (mmol/L) Final [facility] BUN 12/18/2022 05:53:00 26 Above high normal 6-20 (mg/dL) Final [facility] CREATININE 12/18/2022 05:53:00 1.0 0.7-1.2 (mg/dL) Final [facility] ESTIMATED GLOMERULAR FILTRATION RATE 12/18/2022 05:53:00 91 Final [facility] BUN/CREATININE RATIO 12/18/2022 05:53:00 26.0 Above high normal 12.0-20.0 Final [facility] GLUCOSE 12/18/2022 05:53:00 282 Above high normal 70-120 (mg/dL) Final [facility] CALCIUM 12/18/2022 05:53:00 8.3 Below low normal 8.4-10.2 (mg/dL) Final Performing Location [facility], [place] [address]
--- OUTSIDE RECORDS SUMMARY | 2022-12-29 21:27 | External Medical Summary ---
Author Name Unknown Address Unknown Organization [place] [address] Laboratory Report Ordering Provider Test Date Status BROOKMATTHIASBISI 12/17/2022 17:33:00 Final Trough level is to be drawn prior to administration of the next dose. Ensure vancomycin is not infusing prior to drawing level. Observation Date Value Abnormality Reference (Units ) Status [facility] VANCOMYCIN, TROUGH 12/17/2022 17:33:00 16.0 Above high normal 5.0-10.0 (ug/mL) Final Peak Vancomycin levels shoul d be collected 1 hour after the end [...] Vancomycin levels are as follows:"
Peak: 20-40 ugml toxic: >40 ugml

Trough:
Bacteremia 10-15 ugml
Pneumonia 15-20 ugml
Endocarditis 15-20 ugml
CAN RUNNER 20 ugml
A copy of this report has been sent to the Pharmacy for interpretation. The Pharmacy will adjust the drug dosage based on this report. Refer any questions to the Pharmacy. [place] [address]
--- OUTSIDE RECORDS SUMMARY | 2022-12-29 21:27 | External Medical Summary ---
Author Name Unknown Address Unknown Organization [place] [address] Laboratory Report Ordering Provider Test Date Status DEFAULT,POCT 12/16/2022 07:08:37 Final Observation Date Value Abnormality Reference (Units ) Status [facility] GLUCOSE POC STAT STRIP 12/16/2022 07:08:37 333 Above high normal 70-110 (mg/dL) Final [place] [address]
--- OUTSIDE RECORDS SUMMARY | 2022-12-29 21:27 | External Medical Summary ---
Author Name Unknown Address Unknown Organization [place] [address] Laboratory Report Ordering Provider Test Date Status DEFAULT,POCT 12/16/2022 11:08:31 Final Observation Date Value Abnormality Reference (Units ) Status [facility] GLUCOSE POC STAT STRIP 12/16/2022 11:08:31 274 Above high normal 70-110 (mg/dL) [place] [address]
--- OUTSIDE RECORDS SUMMARY | 2022-12-29 21:27 | External Medical Summary ---
Author Name Unknown Address Unknown Organization K0N:[facility], [place] [address] Laboratory Report Ordering Provider Test Date Status TARIQ GUZMAN 12/17/2022 06:13:00 Final Observation Date Value Abnormality Reference (Units ) Status [facility] SODIUM 12/17/2022 06:13:00 132 Below low normal 135-146 (mmol/L) Final [facility] POTASSIUM 12/17/2022 06:13:00 3.9 3.5-5.1 (mmol/L) Final [facility] CHLORIDE 12/17/2022 06:13:00 98 98-107 (mmol/L) Final [facility] CO2 12/17/2022 06:13:00 25 22-32 (mmol/L) Final [facility] ANION GAP 12/17/2022 06:13:00 13 10-20 (mmol/L) Final [facility] BUN 12/17/2022 06:13:00 22 Above high normal 6-20 (mg/dL) Final [facility] CREATININE 12/17/2022 06:13:00 0.9 0.7-1.2 (mg/dL) Final [facility] ESTIMATED GLOMERULAR FILTRATION RATE 12/17/2022 06:13:00 103 Final [facility] BUN/CREATININE RATIO 12/17/2022 06:13:00 24.4 Above high normal 12.0-20.0 Final [facility] GLUCOSE 12/17/2022 06:13:00 388 Above high normal 70-120 (mg/dL) Final [facility] CALCIUM 12/17/2022 06:13:00 7.8 Below low normal 8.4-10.2 (mg/dL) Final Performing Location [facility], [place] [address]
--- OUTSIDE RECORDS SUMMARY | 2022-12-29 21:27 | External Medical Summary ---
Author Name Unknown Address Unknown Organization [place] [address] Laboratory Report Ordering Provider Test Date Status DEFAULT,POCT 12/17/2022 12:43:07 Final Observation Date Value Abnormality Reference (Units ) Status [facility] GLUCOSE POC STAT STRIP 12/17/2022 12:43:07 225 Above high normal 70-110 (mg/dL) [place] [address]
--- OUTSIDE RECORDS SUMMARY | 2022-12-29 21:27 | External Medical Summary ---
Author Name Unknown Address Unknown Organization [place] [address] Laboratory Report Ordering Provider Test Date Status TARIQ GUZMAN 12/16/2022 05:19:00 Final Observation Date Value Abnormality Reference (Units ) Status [facility] BETA HYDROXYBUTYRATE 12/16/2022 05:19:00 1.00 Above high normal 0.02-0.27 (mmol/L) [place] [address]
--- OUTSIDE RECORDS SUMMARY | 2022-12-29 21:27 | External Medical Summary ---
Author Name Unknown Address Unknown Organization [place] [address] Laboratory Report Ordering Provider Test Date Status DEFAULT,POCT 12/16/2022 21:33:33 Final Observation Date Value Abnormality Reference (Units ) Status [facility] GLUCOSE POC STAT STRIP 12/16/2022 21:33:33 207 Above high normal 70-110 (mg/dL) Final [place] [address]
--- OUTSIDE RECORDS SUMMARY | 2022-12-29 21:27 | External Medical Summary ---
Author Name Unknown Address Unknown Organization K0N:[facility], [place] [address] Laboratory Report Ordering Provider Test Date Status BRIAN TOUSSAINT 12/18/2022 05:53:00 Final Observation Date Value Abnormality Reference (Units ) Status [facility] WHITE BLOOD CELL COUNT 12/18/2022 05:53:00 15.5 Above high normal 4.0-10.5 (K/uL) Final [facility] RED BLOOD CELL COUNT 12/18/2022 05:53:00 4.21 Below low normal 4.70-6.00 Final Hemoglobin 12/18/2022 05:53:00 11.8 Below low normal 13.5-18 (g/dL) Final HCT 12/18/2022 05:53:00 34.8 Below low normal 42-52 (%) Final [facility] MEAN CORPUSCULAR VOLUME 12/18/2022 05:53:00 82.8 78.0-100.0 (fl) Final [facility] MCH 12/18/2022 05:53:00 28.1 27.0-31.0 (pg) Final [facility] MCHC 12/18/2022 05:53:00 33.9 32.5-36.0 (g/dL) Final [facility] RED CELL DIST WIDTH 12/18/2022 05:53:00 12.8 11.5-14.0 (%) Final [facility] PLATELET COUNT 12/18/2022 05:53:00 516 Above high normal 150-450 (K/uL) Final [facility] MPV 12/18/2022 05:53:00 6.5 6.5-9.5 (fL) Final Performing Location [facility] [place] [address]
--- OUTSIDE RECORDS SUMMARY | 2022-12-29 21:27 | External Medical Summary ---
Author Name Unknown Address Unknown Organization [place] [address] Laboratory Report Ordering Provider Test Date Status DEFAULT,POCT 12/16/2022 16:00:32 Final Observation Date Value Abnormality Reference (Units ) Status [facility] GLUCOSE POC STAT STRIP 12/16/2022 16:00:32 158 Above high normal 70-110 (mg/dL) [place] [address]
--- OUTSIDE RECORDS SUMMARY | 2022-12-29 21:27 | External Medical Summary ---
Author Name Unknown Address Unknown Organization [place] [address] Laboratory Report Ordering Provider Test Date Status DEFAULT,POCT 12/17/2022 20:29:02 Final Observation Date Value Abnormality Reference (Units) Status [facility] GLUCOSE POC STAT STRIP 12/17/2022 20:29:02 154 Above high normal 70-110 (mg/dL) Final [facility] POCT DEVICE COMMENT 12/17/2022 20:29:02 Notified Nurse [place] [address]
--- OUTSIDE RECORDS SUMMARY | 2022-12-29 21:27 | External Medical Summary ---
Author Name Unknown Address Unknown Organization K0[facility] [address], [place] [address] Laboratory Report Ordering Provider Test Date Status ALEA COHN 12/15/2022 17:08:00 Preliminary Observation Date Value Abnormality Reference (Units) Status [facility] CULTURE, WOUND 12/15/2022 17:08:00 [id number]^STAPH YLOCOCCUS AUREUS Abnormal Preliminary Few Staphylococcus aureus 12/15/2022 17:08:00 Test: Culture, Wound, Deep, Ae robic Abnormal Preliminary 12/15/2022 17:08:00 Specimen Source: Scalp Abnorma l Preliminary 12/15/2022 17:08:00 Specimen Type: Aspirate Abnorm al Preliminary 12/15/2022 17:08:00 Specimen Date: 12/15/2022 5:08 PM Abnormal Preliminary 12/15/2022 17:08:00 Result Date: 12/18/2022 7:46 AM Abnormal Preliminary 12/15/2022 17:08:00 Result Status: Preliminary res ult Abnormal Preliminary 12/15/2022 17:08:00 Abnormal: Yes Abnormal Preliminary 12/15/2022 17:08:00 Resulting Lab: LABORATORY [facility] Abnormal Preliminary 12/15/2022 17:08:00 [facility] Abnormal Preliminary 12/15/2022 17:08:00 Goyo PATRICK [address] Abnormal Preliminary 12/15/2022 17:08:00 Abnormal Preliminary 12/15/2022 17:08:00 Abnormal Preliminary 12/15/2022 17:08:00 CULTURE Abnormal Preliminary 12/15/2022 17:08:00 Abnormal Preliminary 12/15/2022 17:08:00 Abnormal Preliminary 12/15/2022 17:08:00 Few Staphylococcus aureus (Abn ormal) Abnormal Preliminary 12/15/2022 17:08:00 Abnormal Preliminary 12/15/2022 17:08:00 Abnormal Preliminary 12/15/2022 17:08:00 Abnormal Preliminary [facility], [place] [address]
--- OUTSIDE RECORDS SUMMARY | 2022-12-29 21:27 | External Medical Summary ---
Author Name Unknown Address Unknown Organization K0N:[facility] [address], [place] [address] Laboratory Report Ordering Provider Test Date Status ANTHONY LONG 12/18/2022 05:53:00 Final Observation Date Value Abnormality Reference (Units ) Status [facility] CHOLESTEROL 12/18/2022 05:53:00 183 <200 (mg/dL) Final Age <18 Years >=18 Years<br/ >Desirable <170 mgdL <200 mgdL
Borderline High 170-199 mgdL 200-239 mgdL
High >=200 mgdL >= 240 mgdL

Based on National Cholesterol Education program (NCEP) guidelines. [facility] TRIGLYCERIDES 12/18/2022 05:53:00 183 Above hi gh normal <150 (mg/dL) Final Normal <150 mgdL
Borderl ine High 150-199 mgdL
High 200-499 mgdL
Very High >499 mgdL

Based on National Cholesterol Education Program (NCEP) guidelines. [facility] HDL CHOLESTEROL 12/18/2022 05:53:00 44 Below low normal >=60 (mg/dL) Final Age <18 Years >=18 Years<br/ >Low (Undesirable) <35 mgdL <40 mgdL
High (Desirable) >45 mgdL >=60 mgdL

Based on National Cholesterol Education program (NCEP) guidelines. [facility] NON-HDL CHOLESTEROL 12/18/2022 05:53:00 139 Above high normal <130 (mg/dL) Fin al Age <18 Years
Acceptabl e <140 mgdL
Borderline High 140-159 mgdL
High >=160 mgdL

Age >=18 Years
Optimal <130 mgdL
Near or Above Optimal 130-159 mgdL
Borderline High 160-189 mgdL
High 190-219 mgdL
Very High >=220 mgdL [facility] LDL, CALCULATED 12/18/2022 05:53:00 102 Above high normal <100 (mg/dL) Final Age <18 Years
Acceptabl e <110 mgdL
Borderline High 110-129 mgdL
High >=130 mgdL

Age >=18 Years
Optimal <100 mgdL
Near or Above Optimal 100-129 mgdL
Borderline High 130-159 mgdL
High 160-189 mgdL
Very High >=190 mgdL

Based on National Cholesterol Education Program (NCEP) guidelines. [facility] VLDL, CALCULATED 12/18/2022 05:53:00 37 Above high normal 8-32 (mg/dL) Final [facility] [place] [address]
--- OUTSIDE RECORDS SUMMARY | 2022-12-29 21:28 | External Medical Summary ---
Author Name Unknown Address Unknown Organization [place] [address] Laboratory Report Ordering Provider Test Date Status TARIQ GUZMAN 12/15/2022 00:52:07 Final Performed at: 01 - [facility]
[address] [place] [id number]
Facing End Trimmer: Dorys Cifuentes MD, Phone: [phone] Observation Date Value Abnormality Reference (Units ) Status [facility] CANNABINOID CONF UR 12/15/2022 00:52:07 Positive Abnormal Final Carboxy THC Conf, MS, UR 108 ngmL Cutoff=10 01 [place] [address]
--- OUTSIDE RECORDS SUMMARY | 2022-12-29 21:28 | External Medical Summary ---
Author Name Unknown Address Unknown Organization K0N:[facility], [place] [address] Laboratory Report Ordering Provider Test Date Status ALEA COHN 12/15/2022 00:51:31 Final Observation Date Value Abnormality Reference (Units ) Status [facility] SODIUM 12/15/2022 00:51:31 124 Below lower panic limits 135-146 (mmol/L) Final [facility] POTASSIUM 12/15/2022 00:51:31 4.1 3.5-5.1 (mmol/L) Final [facility] CHLORIDE 12/15/2022 00:51:31 87 Below low normal 98-107 (mmol/L) Final [facility] CO2 12/15/2022 00:51:31 24 22-32 (mmol/L) Final [facility] ANION GAP 12/15/2022 00:51:31 17 10-20 (mmol/L) Final [facility] BUN 12/15/2022 00:51:31 33 Above high normal 6-20 (mg/dL) Final [facility] CREATININE 12/15/2022 00:51:31 0.9 0.7-1.2 (mg/dL) Final [facility] ESTIMATED GLOMERULAR FILTRATION RATE 12/15/2022 00:51:31 103 Final [facility] BUN/CREATININE RATIO 12/15/2022 00:51:31 36.7 Above high normal 12.0-20.0 Final [facility] GLUCOSE 12/15/2022 00:51:31 453 Above upper panic limits 70-120 (mg/dL) Final [facility] CALCIUM 12/15/2022 00:51:31 9.0 8.4-10.2 (mg/dL) Final Performing Location [facility], [place] [address]
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
--- OUTSIDE RECORDS SUMMARY | 2022-12-29 21:28 | External Medical Summary ---
Author Name Unknown Address Unknown Organization K0N:[facility], [place] [address] Laboratory Report Ordering Provider Test Date Status TARIQ GUZMAN 12/15/2022 06:20:00 Final Observation Date Value Abnormality Reference (Units ) Status ON LICENSE OF [facility] SODIUM 12/15/2022 06:20:00 130 Below low normal 135-146 (mmol/L) Final ON LICENSE OF [facility] POTASSIUM 12/15/2022 06:20:00 4.1 3.5-5.1 (mmol/L) Final ON LICENSE OF [facility] CHLORIDE 12/15/2022 06:20:00 92 Below low normal 98-107 (mmol/L) Final ON LICENSE OF [facility] CO2 12/15/2022 06:20:00 25 22-32 (mmol/L) Final ON LICENSE OF [facility] ANION GAP 12/15/2022 06:20:00 17 10-20 (mmol/L) Final ON LICENSE OF [facility] BUN 12/15/2022 06:20:00 26 Above high normal 6-20 (mg/dL) Final ON LICENSE OF [facility] CREATININE 12/15/2022 06:20:00 0.9 0.7-1.2 (mg/dL) Final ON LICENSE OF [facility] ESTIMATED GLOMERULAR FILTRATION RATE 12/15/2022 06:20:00 103 Final ON LICENSE OF [facility] BUN/CREATININE RATIO 12/15/2022 06:20:00 28.9 Above high normal 12.0-20.0 Final ON LICENSE OF [facility] GLUCOSE 12/15/2022 06:20:00 399 Above high normal 70-120 (mg/dL) Final ON LICENSE OF [facility] CALCIUM 12/15/2022 06:20:00 8.4 8.4-10.2 (mg/dL) Final Performing Location [facility], [place] [address]
--- OUTSIDE RECORDS SUMMARY | 2022-12-29 21:28 | External Medical Summary ---
Author Name Unknown Address Unknown Organization [place] [address] Laboratory Report Ordering Provider Test Date Status ALEA COHN 12/15/2022 00:51:31 Final Observation Date Value Abnormality Reference (Units ) Status [facility] LIPASE 12/15/2022 00:51:31 86 Above high norm al 16-63 (U/L) [place] [address]
--- OUTSIDE RECORDS SUMMARY | 2022-12-29 21:28 | External Medical Summary ---
Author Name Unknown Address Unknown Organization [facility] [place] [address] Laboratory Report Ordering Provider Test Date Status ALEA COHN 12/15/2022 00:52:07 Final Observation Date Value Abnormality Reference (Units) Status [facility] CULTURE, URINE 12/15/2022 00:52:07 <10,000 CFU/mL 1 [place] Type Final 12/15/2022 00:52:07 Test: Culture, Urine, Quantitative Final 12/15/2022 00:52:07 Specimen Source: Urine, Clean Catch Final 12/15/2022 00:52:07 Specimen Type: Urine Final 12/15/2022 00:52:07 Specimen Date: 12/15/2022 12:52 AM Final 12/15/2022 00:52:07 Result Date: 12/16/2022 9:21 AM Final 12/15/2022 00:52:07 Result Status: Final result Final 12/15/2022 00:52:07 Resulting Lab: LABORATORY [facility] Final 12/15/2022 00:52:07 [facility] Final 12/15/2022 00:52:07 [place] [id number] Final 12/15/2022 00:52:07 Final 12/15/2022 00:52:07 Final 12/15/2022 00:52:07 CULTURE Final 12/15/2022 00:52:07 Final 12/15/2022 00:52:07 Final 12/15/2022 00:52:07 <10,000 CFU/mL 1 [place] Type Final 12/15/2022 00:52:07 Final 12/15/2022 00:52:07 Final 12/15/2022 00:52:07 Final [facility] [place] [address]
--- OUTSIDE RECORDS SUMMARY | 2022-12-29 21:28 | External Medical Summary ---
Author Name Unknown Address Unknown Organization K0N:[address], [place] [address] Laboratory Report Ordering Provider Test Date Status ALEA COHN 12/15/2022 00:52:07 Final Observation Date Value Abnormality Reference (Units ) Status [facility] COLOR, URINE 12/15/2022 00:52:07 Colorless Colorless, Straw, Yellow, Light-Yellow, Dark-Yellow Final [facility] CLARITY, URINE 12/15/2022 00:52:07 Clear Clear, Cloudy, Slightly Cloudy, Other Final [facility] GLUCOSE, URINE 12/15/2022 00:52:07 >1000 Abnormal Negative, Trace (mg/dL) Final [facility] BILIRUBIN, URINE 12/15/2022 00:52:07 Negative Negative (mg/dL) Final [facility] KETONES, URINE 12/15/2022 00:52:07 10 Abnormal Negative, Trace (mg/dL) Final [facility] SPECIFIC GRAVITY, URINE 12/15/2022 00:52:07 1.018 1.003-1.030 Final [facility] BLOOD, URINE 12/15/2022 00:52:07 Small Abnormal Negative Final [facility] PH, URINE 12/15/2022 00:52:07 7.5 >4.6-<7.8 Final [facility] PROTEIN, URINALYSIS 12/15/2022 00:52:07 100 Abnormal Negative (mg/dL) Final [facility] UROBILINOGEN, URINE 12/15/2022 00:52:07 <2.0 0.2, <2.0 (mg/dL) Final [facility] NITRITE, URINE 12/15/2022 00:52:07 Negative Negative Final [facility] ESTERASE, URINE 12/15/2022 00:52:07 Small Abnormal Negative Final [facility] BACTERIA, URINE 12/15/2022 00:52:07 Moderate Abnormal None (/HPF) Final [facility] EPITHELIUM, SQUAMOUS 12/15/2022 00:52:07 None None, Few (/HPF) Final [facility] ERYTHROCYTES, URINE (NUM) 12/15/2022 00:52:07 4 Above high normal 0-2 (/HPF) Final [facility] LEUKOCYTES, URINE (NUM) 12/15/2022 00:52:07 57 Above high normal 0-5 (/HPF) Final Performing Location [facility] [address], [place] [address]
--- OUTSIDE RECORDS SUMMARY | 2022-12-29 21:28 | External Medical Summary ---
Author Name Unknown Address Unknown Organization [place] [address] Laboratory Report Ordering Provider Test Date Status DEFAULT,POCT 12/15/2022 09:35:33 Final Observation Date Value Abnormality Reference (Units ) Status [facility] GLUCOSE POC STAT STRIP 12/15/2022 09:35:33 317 Above high normal 70-110 (mg/dL) [place] [address]
--- OUTSIDE RECORDS SUMMARY | 2022-12-29 21:28 | External Medical Summary ---
Author Name Unknown Address Unknown Organization K0N:[facility] [place] [address] Laboratory Report Ordering Provider Test Date Status ALEA COHN 12/15/2022 00:51:31 Final Observation Date Value Abnormality Reference (Units ) Status [facility] WHITE BLOOD CELL COUNT 12/15/2022 00:51:31 16.0 Above high normal 4.0-10.5 (K/uL) Final [facility] RED BLOOD CELL COUNT 12/15/2022 00:51:31 4.28 Below low normal 4.70-6.00 Final Hemoglobin 12/15/2022 00:51:31 11.8 Below low normal 13.5-18 (g/dL) Final HCT 12/15/2022 00:51:31 35.2 Below low normal 42-52 (%) Final [facility] MEAN CORPUSCULAR VOLUME 12/15/2022 00:51:31 82.1 78.0-100.0 (fl) Final [facility] MCH 12/15/2022 00:51:31 27.6 27.0-31.0 (pg) Final [facility] MCHC 12/15/2022 00:51:31 33.6 32.5-36.0 (g/dL) Final [facility] RED CELL DIST WIDTH 12/15/2022 00:51:31 12.4 11.5-14.0 (%) Final [facility] PLATELET COUNT 12/15/2022 00:51:31 472 Above high normal 150-450 (K/uL) Final [facility] MPV 12/15/2022 00:51:31 6.8 6.5-9.5 (fL) Final Performing [place] [address]
--- OUTSIDE RECORDS SUMMARY | 2022-12-29 21:28 | External Medical Summary ---
Author Name Unknown Address Unknown Organization [place] [address] Laboratory Report Ordering Provider Test Date Status TARIQ GUZMAN 12/15/2022 00:52:07 Final Observation Date Value Abnormality Reference (Units ) Status [facility] OXYCODONE SCREEN, URINE 12/15/2022 00:52:07 Negative Negative Final [facility] OPIATE SCREEN, URINE 12/15/2022 00:52:07 Negative Negative Final [facility] COCAINE METAB SCREEN, URINE 12/15/2022 00:52:07 Negative Negative Final [facility] THC SCREEN, URINE 12/15/2022 00:52:07 Positive Abnormal Negative Final [facility] PCP SCREEN, URINE 12/15/2022 00:52:07 Negative Negative Final [facility] BENZODIAZEPINES SCREEN, URINE 12/15/2022 00:52:07 Negative Negative Final [facility] BARBITURATE SCREEN, URINE 12/15/2022 00:52:07 Negative Negative Final [facility] METHADONE SCREEN, URINE 12/15/2022 00:52:07 Negative Negative Final [facility] TCA SCREEN, URINE 12/15/2022 00:52:07 Negative Negative Final [facility] AMPHETAMINE SCREEN, URINE 12/15/2022 00:52:07 Negative Negative Final This is a screening procedur e that may potentially cause both false positive and false negative results. Results of this procedure are for medical purposes only.

All negative results should be interpreted as less than the cutoff value.
All positive results should be interpreted as greater than the cutoff value.

....................................Cutoff Value
Amphetamines...........................500 ngmL
Opiates................................300 ngmL
Cocaine................................300 ngmL
Tetrahydrocannabinol(THC)...............50 ngmL
Phencyclidine(PCP)......................25 ngmL
Benzodiazepines........................100 ngmL
Barbiturates...........................200 ngmL
Methadone..............................300 ngmL
Tricyclic Antidepressants(TCA)........1000 ngmL
Oxycodone..............................100 ngmL

All positive results will be sent to a reference laboratory for confirmation.

Positive Benzodiazepines may be falsely positive due to cross-reactivity with over the counter cold medications[place] [address]
--- OUTSIDE RECORDS SUMMARY | 2022-12-29 21:28 | External Medical Summary ---
Author Name Unknown Address Unknown Organization [place] [address] Laboratory Report Ordering Provider Test Date Status DEFAULT,POCT 12/15/2022 12:04:40 Final Observation Date Value Abnormality Reference (Units ) Status [facility] GLUCOSE POC STAT STRIP 12/15/2022 12:04:40 206 Above high normal 70-110 (mg/dL) [place] [address]
--- OUTSIDE RECORDS SUMMARY | 2022-12-29 21:28 | External Medical Summary ---
Author Name Unknown Address Unknown Organization [place] [address] Laboratory Report Ordering Provider Test Date Status SUKIALEA 12/15/2022 00:51:31 Final Observation Date Value Abnormality Reference (Units ) Status [facility] BETA HYDROXYBUTYRATE 12/15/2022 00:51:31 1.50 Above high normal 0.02-0.27 (mmol/L) [place] [address]
--- OUTSIDE RECORDS SUMMARY | 2022-12-29 21:28 | External Medical Summary | Summary of Care ---
Author Name Unknown Organization [facility] [address] [place] [address] Phone [phone] Care Team Providers Care Marketing Account Executive Name Role Phone Unavailable Primary Care Provider Unavailabl e Reason for Referral * Evaluate & Treat - Unlimited Visits (Within 3 days (urgent)) - Authorized Specialty Diagnoses / Procedures Referred By Jadyn alberto Referred To Contact Gastroenterology Diagnoses Hematemesis with nausea Jamey Maxwell MD [address] [place] [id number] Referral ID Status Reason Start Date Expiration Date Visits Requested Visits Authorized [id number] Authorized Specialty Services Required 10/27/2022 999 999 Question Answer Referral Priority Within 3 days (urgent) For what condition is the patient being referred? All Gastro Conditions Comments Hematemsis, heavy NSAID use, left ED AMA Discharge Order * Evaluate & Treat - Unlimited Visits (Within 3 days (urgent)) - Authorized Specialty Diagnoses / Procedures Referred By Jadyn alberto Referred To Contact Pain Management / Pain Medicine Diagnoses Neuropathic pain Jamey Maxwell MD [address] [place] [address] Referral ID Status Reason Start Date Expiration Date Visits Requested Visits Authorized [id number] Authorized Specialty Services Required 10/27/2022 999 999 Question Answer Referral Priority Within 3 days (urgent) Reason for referral? Non Interventional Pain Management What is the preferred location to have this test performed? [facility] Comments Patient Name: Gibson Rodgers Date of : 1970 Department Phone Number: Severe neuropathic pain MRI or CT (if unable to have a MRI) is recommended if any of the following apply: 1. Patient has neck or back pain with radiation to extremities. A previous MRI will be accepted if symptoms unchanged since prior MRI. 2. Spinal surgery since last MRI. If yes, order a MRI with and without contrast. 3. Hx or ongoing cancer treatment. Patient will need spine x-ray (Ap/Lat) for axial neck or back pain if not done previously. Fax No. [facility] [phone] or contact front office spec [phone] Fax No. [facility] [phone] or contact front office spec [phone] Fax No. [facility] [phone] or contact front office spec [phone] Discharge Order Reason for Visit * Reason Comments Pain * Auth/Cert Specialty Diagnoses / Procedures Referred By Contac t Referred To Contact Referral ID Status Reason Start Date Expiration Date Visits Re quested Visits Authorized [id number] 999 999 Encounter Details Date Type Department Care Team Description 10/27/2022 Emergency [facility] Emergency Department ([facility]) [address] [place] [address] Jamey Maxwell MD [address], [place] [id number] Hematemesis with nausea (Primary Dx); Tachycardia; Neuropathic pain Allergies Active Allergy Reactions Severity Noted Date Comments Bee Venom Anaphylaxis High 04/16/2014 Penicillins Hives Medium 07/21/2013 documented as of this encounter (statuses as of 10/28/2022) Medications Medication Sig Dispensed Refills Start Date End Date Status Insulin Lispro (1 Unit Dial) 100 UNIT/ML Subcutaneous Solution Pen-injector (HumaLOG KwikPen) Inject 10 Units under the skin three times a day with meals. 15 mL 3 01/17/2021 Active Additional Information Patient not taking.Reported on 09/09/2022 Pregabalin 75 MG Oral Capsule (Lyrica) Take 1 Capsule by mouth in the morning and 1 Capsule before bedtime. 60 Capsule 0 09/09/2022 Active Additional Information Patient not taking.Reported on 10/27/2022 Famotidine 40 MG Oral Tablet (Pepcid) Take 1 Tablet by mouth in the morning. 0 Active documented as of this encounter (statuses as of 10/28/2022) Active Problems Problem Noted Date Antisocial personality [...] as of this encounter (statuses as of 10/28/2022) Resolved Problems Problem Noted Date Resolved Date Food insecurity 09/23/2020 10/01/2022 Overview: Per [facility] Protocol DM type 2, not at goal 04/11/2019 Overview: Duplicated on pl [facility] (current) use of insulin 12/29/2018 04/11/2019 Cannabis [...] as of this encounter (statuses as of 10/28/2022) Immunizations Name Administration Dates Next Due TDAP [...] Sign Reading Time Taken Comments Blood Pressure 149/98 10/27/2022 2:24 PM EDT Pulse 117 10/27/2022 2:24 PM EDT Temperature 36.6 C (97.9 F) 10/27/2022 2:24 PM ED T Respiratory Rate 18 10/27/2022 2:24 PM EDT Oxygen Saturation 100% 10/27/2022 2:24 PM EDT Inhaled Oxygen Concentration - - Weight 74.8 kg (165 lb) 10/27/2022 2:24 PM EDT Height 167.6 cm (5' 6") 10/27/2022 2:24 PM EDT Body Mass Index 26.63 10/27/2022 2:24 PM EDT documented in this encounter ED Notes * Jamey Maxwell MD - 10/27/2022 3:07 PM EDT HISTORY OF PRESENT ILLNESS Gibson Rodgers is a 52 year old male who presents to the ED for evaluation of Pain. The patient was seen at 10/27/22 1505. Pt here with multiple complaints. States his legs hurt constantly. He's been diagnosed with neuropathy and told to take tylenol, motrin and gabapentin. He states he quit the gabapentin and it didn't work. He's been vomiting frequently, and has had blood in his vomit at times a couple time per week. He states his PCP "won't do shit about it". States he's lost 30 lbs in the past 1-2 months. States he throws up everyday. States he has pain inhis abdomen every day. "Feels like the skin of my stomach is being electrocuted." States he's been taking max dose ibuprofen daily for over a year for his stomach and leg pain. States the main reason he came in is because of the pain in his feet, "I can't hardly walk any more." States he stopped taking insulin because it was causing sores on his legs. States he doesn't take any medication for his Bipolar disorder because it doesn't work. Has never seen pain management. PMH: DM, neuropathy, GERD, Bipolar disorder All: PCN SH: denied smoking, drinking. Smokes marijuana very occasionally. Review of Systems Constitutional: Positive for unexpected weight change. Negative for chills and fever. HENT: Negative for ear pain and sore throat. Eyes: Negative for pain and visual disturbance. Respiratory: Negative for cough and shortness of breath. Cardiovascular: Negative for chest pain and palpitations. Gastrointestinal: Positive for abdominal pain, nausea and vomiting. Genitourinary: Negative for dysuria and hematuria. Musculoskeletal: Positive for myalgias (leg/foot pain). Negative for arthralgias and back pain. Skin: Negative for color change and rash. Neurological: Negative for seizures and syncope. All other systems reviewed and are negative. The patient's allergies, past history, and medications were reviewed. PHYSICAL EXAM Initial Vitals (see all): BP 149/98 | Pulse 117 | Resp 18 | Temp 97.9 | O2 100 %, Room Air, None | Weight 74.84 kg | Height 167.6 cm | BMI 26.63 kg/m2 Initial Pain Assessment (see all): 10 (severe pain)/106/10, location: legs ([facility] Adult Scale 0-10) PROCEDURES AND TREATMENTS ED Orders | ED Results MEDICAL DECISION MAKING Nursing notes and vital signs were reviewed. ED Course as of 10/28/22 0025 WedOct 27, 2022 1505 ED Triage Notes Has neuropathy and has been to his dr several times. From knees down hurt all the time. States he is told to take tylenol and ibuprofen but that does not help and the ibuprofen upsets his stomach. Lost over 100 lbs in past year, not been trying to loose weight. Had for him to walk. Pt states the pain was so bad in his feet this AM he fell down the steps. Denies any injury. Was on Gabapentin 800 mg TID but is not taking it now because it does not help. Also states he is throwing up everyday several times. States it is all blood. States when he throws up on something painted it takes the pain right off. Also has lumps in his hands that make his hands contract at time. Not taking any of his meds except famotidine. States his insulin caused ulcers on his arms and legs. [MM] 1506 BP: 149/98 [MM] 1506 Pulse: 117 [MM] 1506 Resp: 18 [MM] 1506 SpO2: 100 % [MM] 1506 Temp: 36.6 C (97.9 F) [MM] 1529 At the end of taking the history and prior to performing the physical exam the patient became upset and stated that he was leaving. He has been having severe neuropathic pain, and I suggested that he would need to follow up with pain management. Prior to offering him any alternatives for pain control today he left abruptly. [MM] ED Course User Index [MM] Jamey Maxwell MD Patient here due to multiple complaints. The most pressing issue for the patient today was his unrelenting pain in his legs. States that he has been diagnosed with neuropathy. He has tried gabapentin, Tylenol, Motrin for over a year withoutany improvement. He has stop taking the gabapentin. He states that narcotic medication does not work for him. He has been having upper abdominal pain, weight loss, nausea, vomiting, poor appetite, blood in hisvomit at times. He likely has gastritis or peptic ulcer disease due to heavy NSAID use for a prolonged period. I recommended a workup, but stated that I did not think we had any good alternatives for his pain at this time, and he would likely need to follow-up with pain management for this issue. At this time, the patient became upset and stated that he was leaving. Discharged home against medical advice instable condition. Patient did not stay fill out AMA papers. Referral for Gastroenterology and pain management placed. Return precautions given. Amount and/or Complexity of Data Reviewed Labs: ordered. ECG/medicine tests: ordered. Risk Prescription drug management. Clinical Impressions Tachycardia Hematemesis with nausea Neuropathic pain Disposition AMA. The patient's condition at disposition was: stable. Comments ED Disposition AMA Comment Gibson Rodgers left against medical advice (AMA). Relevant issues regarding this decision include the following: Patient cognition at the time the decision to leave AMA was made: oriented to person, place and time, gives appropriate answers, spea ks coherently, no signs of psychosis, no suicidal thoughts, no evidence of drug or alcohol use, and no trauma. Patient comprehension of their problem: aware of suspected diagnosis, acknowledes reasons for further testing and treatment, and the follo wing risks of refusal of further care were explained. The following risks were explained: , permanent mental impairment, and heart attack The following services were offered: offer to stay in the ER. This patient is competent to make a decisi on regarding the medical care being offered. Discharge Medications None Jamey Maxwell * Rylee Ortega RN - 10/27/2022 2:22 PM EDT Has neuropathy and has been to his dr several times. From knees down hurt all the time. States he is told to take tylenol and ibuprofen but that does not help and the ibuprofen upsets his stomach. Lost over 100 lbs in past year, not been trying to loose weight. Had for him to walk. Pt states the pain was so bad in his feet this AM he fell down the steps. Denies any injury. Was on Gabapentin 800 mg TID but is not taking it now because it does not help. Also states he is throwing up everyday several times. States it is all blood. States when he throws up on something painted it takes the pain right off. Also has lumps in his hands that make his hands contract at time. Not taking any of his meds except famotidine. States his insulin caused ulcers on his arms and legs. documented in this encounter Miscellaneous Notes * ED Qa Engineer Note - Feng Dutton RN - 10/27/2022 3:42 PM EDT Pt left AMA during Dr. Maxwell's assessment. FLACC 6. Pt. Ambulated out of ED with shaky gait. * ED Qa Engineer Note - Feng Dutton RN - 10/27/2022 2:51 PM EDT Pt arrives to the ED with Neuropathy and Bipolar Pt verbalized that he feels that he is not gettingthe help he feels he needs at his PCP. Pt is frustrated and that they are advising to alternate tylenol and ibuprofen to treat the pain. Pt reports that ibuprofen is causing him to vomit blood, and has given his acid reflux. Pt verbalized that renititine helped which he was told he can no longer take, advised to take Pepcid and Tums, neither provide relief. Pt reports rapid unintentional weight loss, claims to have lost 30lbs within the last month or so. Pt is unable to drink water without vomiting. Pt reports that he has only been able to keep milk down. Pt reports constant neuropathy pain as well as waves of pain that "feels like I'm being electrocuted," 3-5 times a day, which cause his body to tense up and tear up. Good peripheral pulses and clear lung sounds. documented in this encounter Plan of Treatment Scheduled Orders Name Type Priority Associated Diagnoses Orde r Schedule CBC WITH WBC DIFFERENTIAL Lab STAT Perform Now for 1 Occurrences starting 10/27/2022 until 10/27/2022 EKG EKG STAT Tachycardia Perform Now for 1 Occurrences starting 10/27/2022 until 10/27/2022 TROPONIN T, HIGH SENSITIVITY Lab STAT Perform Now for 1 Occurrences starting 10/27/2022 until 10/27/2022 COMPREHENSIVE METABOLIC PANEL Lab STAT Perform Now for 1 Occurrences starting 10/27/2022 until 10/27/2022 LACTATE Lab STAT Perform Now fo r 1 Occurrences starting 10/27/2022 until 10/27/2022 LIPASE Lab STAT Perform Now fo r 1 Occurrences starting 10/27/2022 until 10/27/2022 MAGNESIUM Lab STAT Perform Now fo r 1 Occurrences starting 10/27/2022 until 10/27/2022 PROCALCITONIN Lab STAT Perform Now for 1 Occurrences starting 10/27/2022 until 10/27/2022 CBC Lab STAT Once for 1 Occ urrences starting 10/27/2022 until 10/27/2022 DIFFERENTIAL, AUTOMATED Lab STAT O nce for 1 Occurrences starting 10/27/2022 until 10/27/2022 PT INR Lab STAT Perform Now fo r 1 Occurrences starting 10/27/2022 until 10/27/2022 Scheduled Referrals Name Type Priority Associated Diagnoses Order Schedule PAIN MEDICINE REFERRAL OP Referral Within 3 days (urgent) Neuropathic pain Ordered: 10/27/2022 GASTROENTEROLOGY REFERRAL OP Referral Within 3 days (urgent) Hematemesis with nausea Ordered: 10/27/2022 Health Maintenance Due Date Last Done Comments [...] exists Albumin/Creatinine Ratio 12/17/2021 021, 10/04/2018, 01/29/2016 HbA1c 04/23/2022 10/24/2021, 110 03/2020, 09/17/2020, Additional history exists Depression, Most Recent Score >= 10 (will fire each visit until score < 10) 09/10/2022 09/09/2022 Influenza Vaccine (FLU shot) (#1) 2022 GFR 10/24/2022 10/24/2021, 0 03/2020, 09/17/2020, Additional history exists Diabetic Foot Exam 09/10/2023 09/09/2022, 0 09/17/2020, 08/15/2019, Additional history exists O2 ASSESSMENT COMPLETED IN PAST YEAR FOR COPD 09/10/2023 10/27/2022 Cologuard 01/19/2024 01/18/2021, 01/13/2021 Colorectal Cancer Screening 01/19/2024 Lipid Panel 10/24/2026 10/24/2021, 0 03/2020, 09/17/2020, Additional history exists DTaP,Tdap,and Td Vaccines (2 - Td or Tdap) 09/18/2027 09/17/2017 Hepatitis C Screening Completed 12/17/2020 , 12/17/2020, 12/17/2020 GARDASIL-HPV IMMUNIZATION SERIES Aged Out No longer eligible based on patient's age to complete this topic MENINGOCOCCAL (MENACTRA/MENVEO) Aged Out No longer eligible based on patient's age to complete this topic documented as of this encounter Medical Devices Not on filedocumented as of this encounter Visit Diagnoses Diagnosis Hematemesis with nausea- Primary Tachycardia Tachycardia, unspecified Neuropathic pain Neuralgia, neuritis, and radiculitis, unspecified documented in this encounter Active and Recently Administered Medications Times are shown in EDT. Scheduled Medication Order 10/25/2022 10/26/2022 10/27/2022 NSS 0.9% 1,000 mL bolus infusion IV Piggyback, Wide open, This infusion may be completed in less than 1 hour, since it will be a wide open rate, ONCE, 1 dose, On 9/12/23 at 1545 ondansetron (Zofran) inj 4 mg 4 mg, IV Push, ONCE, On Wed10/27/22 at 1545, For 1 dose Pantoprazole (Protonix) inj 40 mg 40 mg, IV Push, ONCE, 1 dose, On Wed10/27/22 at 1545, IV push instructions: Flush I.V. Line before and after administration. In-line filter not required. 2-minute infusion: The volume of reconstituted solution (4mg/ml) to be injected may be administered intravenously over at least 2 minutes. ( Dilute each vial with 10 ml of 0.9% saline PF) documented in this encounter Advance Directives Latest Code Status on File Code Status Date Activated Date Inactivated Comments Full Code 06/07/2018 12:21 AM 06/14/2018 5:15 PM This order reflects the patients wishes and were consensually agreed upon. Question Answer Comments Discussion of Advance Directives occurred with: Patient Does the patient have a Living Will? No Does the patient have Health Care Power of Short Story Writer? No Code Status History Code Status Date Activated Date Inactivated Comments Full Code 04/16/2014 9:08 PM 04/25/2014 5:20 PM This o rder reflects the patients wishes and were consensually agreed upon.
--- OUTSIDE RECORDS SUMMARY | 2022-12-29 21:28 | External Medical Summary ---
Author Name Unknown Address Unknown Organization [place] [address] Laboratory Report Ordering Provider Test Date Status DEFAULT,POCT 12/15/2022 06:34:05 Final Observation Date Value Abnormality Reference (Units ) Status [facility] GLUCOSE POC STAT STRIP 12/15/2022 06:34:05 393 Above high normal 70-110 (mg/dL) [place] [address]
--- OUTSIDE RECORDS SUMMARY | 2022-12-29 21:28 | External Medical Summary ---
Author Name Unknown Address Unknown Organization [place] [address] Laboratory Report Ordering Provider Test Date Status THOMASRONALDOHUA 12/15/2022 06:20:00 Final Observation Date Value Abnormality Reference (Units ) Status [facility] BETA HYDROXYBUTYRATE 12/15/2022 06:20:00 1.40 Above high normal 0.02-0.27 (mmol/L) [place] [address]
--- OUTSIDE RECORDS SUMMARY | 2022-12-29 21:28 | External Medical Summary | Summary of Care ---
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 Encounter Details Date Type Department Care Team Description 09/09/2022 Office Visit [facility] Osmar Lerma [address] [id number] Yaima Genao MD [address] [id number] Type 2 diabetes mellitus with diabetic neuropathy, with long-term current use of insulin (HCC)*; COPD, group B, by GOLD 2017 classification ([facility]); Antisocial personality disorder ([facility]); Depression with suicidal ideation; Post traumatic stress disorder (PTSD); Financial difficulties; Cannabis use with anxiety disorder ([facility]); HTN, goal below 140/80; Hyperlipidemia, unspecified hyperlipidemia type Allergies Active Allergy Reactions Severity Noted Date Comments Bee Venom Anaphylaxis High 04/16/2014 Penicillins Hives Medium 07/21/2013 documented as of this encounter (statuses as of 09/09/2022) Medications Medication Sig Dispensed Refills Start Date End Date Status Insulin Lispro (1 Unit Dial) 100 UNIT/ML Subcutaneous Solution Pen-injector (HumaLOG KwikPen) Inject 10 Units under the skin three times a day with meals. 15 mL 3 1 Active Additional Information Patient not taking.Reported on 09/09/2022 Pregabalin 75 MG Oral Capsule (Lyrica) Take 1 Capsule by mouth in the morning and 1 Capsule before bedtime. 60 Capsule 0 3 Active Continuous Blood Gluc Pullman Conductor (FREESTYLE SANDY 14 DAY READER) FARAZ Use as directed. 1 Each 0 0 023 Discontinued Blood Glucose Monitoring Suppl (Max Rumpus ULTRA 2) w/Device KIT Use to check blood sugar daily (Pharmacy fill whatever brand covered) 1 Kit 0 0 023 Discontinued Ondansetron HCl 8 MG Oral Tablet (Zofran) Take 1 Tab by mouth every 8 hours as needed for Nausea. 20 Tab 1 1 023 Discontinued Atorvastatin Calcium 40 MG Oral Tablet (Lipitor)Indications :Hyperlipidemia, unspecified hyperlipidemia type Take 1 Tab by mouth daily. 90 Tab 3 1 023 Discontinued glipiZIDE ER 5 MG Oral Tablet Extended Release 24 Hour (glipiZIDE XL) Take 1 Tab by mouth daily. 30 minutes before a meal. 90 Tab 3 1 023 Discontinued hydrOXYzine HCl 50 MG Oral Tablet Take 1 Tablet by mouth every 6 hours as needed for Anxiety. 40 Tablet 2 1 023 Discontinued Lisinopril 20 MG Oral Tablet (Prinivil)Indication s:HTN, goal below 140/80 Take 1 Tablet by mouth daily. 90 Tablet 3 023 Discontinued Pantoprazole Sodium 40 MG Oral Tablet Delayed Release (Protonix)Indication s:Gastroesophageal reflux disease without esophagitis Take 1 Tablet by mouth daily. 90 Tablet 3 023 Discontinued Sucralfate 1 GM Oral Tablet (Carafate)Indication s:Gastroesophageal reflux disease without esophagitis Take 1 Tablet by mouth 4 times a day before meals and at bedtime. 60 Tablet 3 1 023 Discontinued Mirtazapine 15 MG Oral Tablet (Remeron)Indications :Insomnia, unspecified type Take 1 Tablet by mouth at bedtime. 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 100 Each 5 1 023 Discontinued Triamcinolone Acetonide 0.5 % External CreamIndications:Fol liculitis Apply topically to affected area 2 times a day . To affected area. 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 15 mL 3 2 023 Discontinued OneTouch Verio In Vitro Strip (Glucose Blood) Test once daily E11.9 100 Strip 3 2 023 Discontinued OneTouch Delica Lancets 33G Test once daily E11.9 100 Each 3 2 023 Discontinued Famotidine 20 MG Oral Tablet (Pepcid)Indications: Gastroesophageal reflux disease, unspecified whether esophagitis present Take by mouth 1 Tablet in the morning AND 1 Tablet before bedtime. 60 Tablet 11 2 023 Discontinued Omeprazole 40 MG Oral Capsule Delayed Release (PriLOSEC)Indication s:Gastroesophageal reflux disease, unspecified whether esophagitis present Take by mouth 1 Capsule in the morning AND 1 Capsule before bedtime. 1 hour before the first meal of the day. 60 Capsule 5 2 023 Discontinued documented as of this encounter (statuses as of 09/09/2022) Active Problems Problem Noted Date Antisocial personality disorder 09/10/19 23 Depression with suicidal ideation 2022 Difficulty controlling anger 08/29/2021 Financial difficulties 06/12/2021 Food insecurity 09/23/2020 Overview: Per [facility] Protocol Type 2 diabetes mellitus with retinopath y [...] as of this encounter (statuses as of 09/09/2022) Resolved Problems Problem Noted Date Resolved Date DM type 2, not at goal 04/11/2019 [...] as of this encounter (statuses as of 09/09/2022) Immunizations Name Administration Dates Next Due TDAP [...] Sign Reading Time Taken Comments Blood Pressure 150/84 09/09/2022 1:22 PM EDT Pulse 93 09/09/2022 1:22 PM EDT Temperature 36.4 C (97.6 F) 09/09/2022 1:22 PM ED T Respiratory Rate 20 09/09/2022 1:22 PM EDT Oxygen Saturation 98% 09/09/2022 1:22 PM EDT Inhaled Oxygen Concentration - - Weight 79 kg (174 lb 3.2 oz) 09/09/2022 1:22 PM EDT Height - - Body Mass Index 28.12 08/29/2021 8:10 AM EDT documented in this encounter Patient Instructions * Patient Instructions* Jackie Curtis LPN - 09/09/2022 1:18 PM EDT Diabetes: Keeping Feet Healthy Inspect your feet every day for signs of a problem. Diabetes can damage nerves in your feet and cause neuropathy. This condition makes it hard for you to feel injuries or sore spots. Diabetes can also change blood flow, making it harder for small problems, like a blister, to heal properly. In fact, minor injuries can quickly become serious infections that send you to the hospital. Practice self-care to protect your feet and keep them healthy. Take Special Care Inspect your feet daily for problems such as redness, blisters, cracks, dry skin, or numbness. Use a mirror to see the bottoms of your feet. Or, ask for help. Manage your diabetes. Monitor and control your blood sugar. Take all your medications as prescribed. Avoid walking barefoot, even indoors. Wash your feet with warm water and mild soap. Dry well, especially between toes. Dont treat corns or calluses yourself. Talk to your doctor or manager study (a doctor who specializes in foot care) if you need assistance trimming your toenails. Use moisturizing cream or lotion if you have dry skin, but dont use it between toes. Dont use heating pads on your feet. If you have neuropathy, you could get a burn and not feel it. Stop smoking. Smoking restricts blood flow and can make it harder for wounds to heal. Have Regular Checkups Foot problems can develop quickly. So be sure to follow your healthcare teams schedule for regular checkups. During office visits, take off your shoes and socks as soon as you get in the exam room. Ask your healthcare provider to examine your feet for problems. This will make it easier to find and treat small skin irritations before they get worse. Regular checkups can also help keep track of the blood flow and feeling in your feet. If you have neuropathy, you may need to have checkups more often. Wear Proper Footwear Wearing proper footwear is very important. If areas of your feet have been damaged by too much pressure, your healthcare provider may recommend changing your footwear. In some cases, avoiding high heels or tight work boots may be all thats needed. Or, your healthcare provider may recommend special shoes or custom inserts. These help protect your feet and keep existing irritations from getting worse. If you need special footwear, ask your healthcare provider if you qualify for [employer] diabetic shoe program. Make Sure Shoes and Socks Fit Any pair of shoes--new or old--should feel comfortable as soon as you put them on. There shouldnt be any rubbing when you walk. Wear the right shoe for any activity. For instance, a running shoe is designed to keep your feet injury-free while jogging. Buy shoes at the end of the day, when your feet are larger. Make sure they provide support without feeling too loose. Make sure your socks fit, t oo. Wear soft, seamless, well-padded socks for activity. Cotton or microfiber socks are best to help to absorb sweat. To protect your feet, avoid shoes that are open-toed or open-heeled. If you have questions about what kinds of shoes and socks are best, talk to your healthcare team. Get Regular Exercise Regular exercise improves blood flow in your feet. It also increases foot strength and flexibility.Gentle exercises, like walking or riding a stationary bicycle, are best. You can also do special foot exercises. Just be sure to talk with your healthcare provider before starting any exercise program. Also mention if any exercise causes pain, redness, or other signs of foot problems. Note: If you have any kind of break in the skin of your foot or ankle, keep the area clean. Then call your doctor--especially if the area doesnt appear to be healing. [id number] [employer], [address] [place] [address]. All rights reserved. This information is not intended as a substitute for professional medical care. Always follow your healthcare professional's instructions. documented in this encounter Progress Notes * Yaima Genao MD - 09/09/2022 1:41 PM EDT Concerns Chief Complaint Patient presents with Chief Complaint Patient presents with Follow Up Patient here today for return visit. HPI & ROS Gibson Rodgers is a 52 year old male is presenting for Follow Up (Patient here today for return visit.//) HPI #. Uncontrolled T2DM Hemoglobin AIC Results: Lab Results Component Value Date/Time HEMOGLOBIN A1C - [facility] 15.3 (H) 10/24/2021 03:13 PM HEMOGLOBIN A1C - [facility] 16.3 (H) 12/17/2020 10:54 AM HEMOGLOBIN A1C - [facility] 14.7 (H) 09/17/2020 04:32 PM HEMOGLOBIN A1C - [facility] 12.8 (H) 04/11/2019 12:02 PM HEMOGLOBIN A1C - [facility] 12.4 (H) 10/04/2018 12:56 PM HEMOGLOBIN A1C - [facility] 12.1 (H) 06/08/2018 06:12 AM he will not check BG Not taking any insulin Has peripheral neuropathy Has not improved with gabapentin 800 mg He is not seeing a therapist anymore Review of Systems Unable to perform ROS: Psychiatric disorder Current Outpatient Medications Medication Sig Dispense Refill Pregabalin 75 MG Oral Capsule (Lyrica) Take 1 Capsule by mouth in the morning and 1 Capsule before bedtime. 60 Capsule 0 Insulin Lispro (1 Unit Dial) 100 UNIT/ML Subcutaneous Solution Pen-injector (HumaLOG KwikPen) Inject 10 Units under the skin three times a day with meals. (Patient not taking: Reported on 08/29/2021) 15 mL 3 No current facility-administered medications for this visit. Physical Exam BP 150/84 | Pulse 93 | Temp 36.4 C (97.6 F) (Tympanic) | Resp 20 | Wt 79 kg (174 lb 3.2 oz) | SpO2 98% | BMI 28.12 kg/m | BSA 1.92 m Body mass index is 28.12 kg/m. BP Readings from Last 3 Encounters: 09/09/22 150/84 08/29/21 152/100 06/12/21 152/100 Wt Readings from Last 3 Encounters: 09/09/22 79 kg (174 lb 3.2 oz) 08/29/21 86.9 kg (191 lb 9.6 oz) 06/12/21 86.2 kg (190 lb 2 oz) Physical Exam Vitals reviewed. Pulmonary: Effort: Pulmonary effort is normal. Musculoskeletal: Comments: Non healing wounds on arms and legs Neurological: Mental Status: He is oriented to person, place, and time. Psychiatric: Comments: At baseline for behavior. Continues to threaten suicide at each visit. Assessment/ Plan Problem List Items Addressed This Visit Endocrine/Metabolic Type 2 diabetes mellitus with diabetic neuropathy, unspecified (HCC) - Primary (Chronic) Relevant Orders DIABETES FOOT EXAM (Completed) Hyperlipidemia Respiratory COPD, group B, by GOLD 2017 classification (HCC) (Chronic) Circulatory HTN, goal below 140/80 Other Cannabis use with anxiety disorder (HCC) (Chronic) Post traumatic stress disorder (PTSD) Financial difficulties Antisocial personality disorder (HCC) Depression with suicidal ideation Offered lyrica for pain Offered endo referral to discuss insulin pump since he gets wounds with insulin injections He has noticed muscle wasting discussed that he has metabolic failure due to his longstanding poorly controlled diabetes and also neuropathy from diabetes. He does not want any diabetes treatment He is only interested in pain control at this time. He got up and said if I have to be in this pain I don't want to live and left the room/clinic. All patient questions were addressed. The patient expressed understanding of the plan. Risks, benefits, and alternatives discussed. Advised to contact me with further questions or concerns. Yaima Genao M.D. * Jackie Curtis LPN - 09/09/2022 1:18 PM EDT DM Foot Exam completed today. Provider aware. Jackie Curtis LPN Socks and Shoes Removed for Annual Diabetic Foot Screening RIGHT FOOT: Area of Concern: thick yellow toe nails, burning, stinging. RIGHT Dorsalis Pedis Pulse: Palpable RIGHT Posterior Tibial Pulse: Palpable RIGHT Monofilament:Patient reports difficulty feeling monofilament at Great toe- plantar surface, Third toe-plantar surface, Ball of Foot-base of great toe, Ball of Foot-base of 3rd toe and Ball of Foot-base of little toe LEFT FOOT: Area of Concern thick yellow toe nails, burning, stinging LEFT Dorsalis Pedis Pulse: Palpable LEFT Posterior Tibial Pulse: Palpable LEFT Monofilament:Patient reports difficulty feeling monofilament at Great toe- plantar surface, Third toe-plantar surface, Ball of Foot-base of great toe, Ball of Foot-base of 3rd toe and Ball of Foot-base of little toe Do you need diabetic shoes: No documented in this encounter Nursing Notes * Jackie Curtis LPN - 09/09/2022 1:17 PM EDT Chief Complaint Patient presents with Follow Up Patient here today for return visit. The patient has been properly identified by confirmation of name and date of . Patient declined shingrix and pneumococcal vaccines at this time. Patient educated on the importance of the vaccines. DM Foot exam today, Concerns thick yellow toe nails, burning, Stinging and difficulty feeling monofilament bilaterally. Jackie Curtis LPN 1:17 PM 09/09/2022 documented in this encounter Plan of Treatment Health Maintenance Due Date Last Done Comments Hepatitis B (1 of 3 - 3-dose series) 1970 COVID-19 Vaccine (#1) 02/11/1971 Pneumococcal Vaccine: Pediatrics (0 to 5 Years) and At-Risk Patients (6 to 64 Years) (1 - PCV) 1976 HIV Screening 1985 Alpha-1 Antitrypsin 1988 O2 ASSESSMENT COMPLETED IN PAST YEAR FOR COPD 1988 Colonoscopy 08/13/2015 Fecal Occult Blood Test 08/13/2015 Sigmoidoscopy 08/13/2015 *COPD SEVERITY VERIFIED BY PFT 12/27/2015 Depression, Most Recent Score >= 10 (will fire each visit until score < 10) 11/17/2019 11/16/2019 Zoster Vaccines (1 of 2) 2020 DIABETES-EYE EXAM 10/23/2021 10/23/2020, , 10/23/2020, Additional history exists Albumin/Creatinine Ratio 12/17/2021 021, 10/04/2018, 01/29/2016 HbA1c 04/23/2022 10/24/2021, 1103/2020, 09/17/2020, Additional history exists Influenza Vaccine (FLU shot) (#1) 2022 GFR 10/24/2022 10/24/2021, 1103/2020, 09/17/2020, Additional history exists DIABETES-FOOT EXAM 09/10/2023 09/09/2022, 0 09/17/2020, 08/15/2019, Additional history exists Cologuard 01/19/2024 01/18/2021, 01/13/2021 Colorectal Cancer Screening 01/19/2024 Lipid Panel 10/24/2026 10/24/2021, 03/2020, 09/17/2020, Additional history exists DTaP,Tdap,and Td [...] long-term current use of insulin (HCC)- Primary COPD, group B, by GOLD 2017 classification (HCC) Antisocial personality disorder (HCC) Antisocial personality disorder Depression with suicidal ideation Depressive disorder, not elsewhere classified Post traumatic stress disorder (PTSD) Posttraumatic stress disorder Financial difficulties Inadequate material resources Cannabis use with anxiety disorder (HCC) Other specified drug-induced mental disorder HTN, goal below 140/80 Unspecified essential hypertension Hyperlipidemia, unspecified hyperlipidemia type documented in this encounter Advance Directives Latest Code Status on File Code Status Date Activated Date Inactivated Comments Full Code 06/07/2018 12:21 AM 06/14/2018 5:15 PM This order reflects the patients wishes and were consensually agreed upon. Question Answer Comments Discussion of Advance Directives occurred with: Patient Does the patient have a Living Will? No Does the patient have Health Care Power of Customer Account Representative? No Code Status History Code Status Date Activated Date Inactivated Comments Full Code 04/16/2014 9:08 PM 04/25/2014 5:20 PM This o rder reflects the patients wishes and were consensually agreed upon."
--- OUTSIDE RECORDS SUMMARY | 2022-12-29 21:28 | External Medical Summary ---
Author Name Unknown Address Unknown Organization [facility] [place] [address] Laboratory Report Ordering Provider Test Date Status DEFAULT,POCT 12/15/2022 01:07:39 Final Observation Date Value Abnormality Reference (Units ) Status [facility] PH VENOUS 12/15/2022 01:07:39 7.579 Above high normal 7.260-7.430 Final [facility] PCO2 VENOUS 12/15/2022 01:07:39 27.4 Below low normal 41.0-51.0 (mmHg) Final [facility] PO2 VENOUS 12/15/2022 01:07:39 72.5 Above high normal 20.0-40.0 (mmHg) Final [facility] THB VENOUS 12/15/2022 01:07:39 13.7 13.5-18.0 (g/dL) Final [facility] O2HB VENOUS 12/15/2022 01:07:39 92.0 Above high normal 40.0-70.0 (%) Final [facility] COHB VENOUS 12/15/2022 01:07:39 4.2 Above high normal 0.0-1.5 (%) Final [facility] MET HB VENOUS 12/15/2022 01:07:39 0.1 0.0-1.5 (%) Final [facility] SO2 VENOUS 12/15/2022 01:07:39 96.1 >0.0 (%) Final [facility] BE(B) VENOUS 12/15/2022 01:07:39 4.2 Above high normal -2.0-2.0 (mmol/L) Final [facility] HCO3 VENOUS 12/15/2022 01:07:39 25.1 22.0-29.0 (mmol/L) Final [facility] SITE 12/15/2022 01:07:39 VENOUS Final [facility] O2 DEVICE 12/15/2022 01:07:39 RA Final [facility] FIO2 12/15/2022 01:07:39 21.0000 Final [facility] MADDISON TEST 12/15/2022 01:07:39 NA Final Performing Location [facility], [place] [address]
--- OUTSIDE RECORDS SUMMARY | 2022-12-29 21:28 | External Medical Summary ---
Author Name Unknown Address Unknown Organization [place] [address] Laboratory Report Ordering Provider Test Date Status ALEA COHN 12/15/2022 00:51:31 Final Observation Date Value Abnormality Reference (Units ) Status [facility] BILIRUBIN, TOTAL 12/15/2022 00:51:31 0.20 0.00-1.20 (mg/dL) Final [facility] BILIRUBIN, DIRECT 12/15/2022 00:51:31 <^0.20 0.00-0.30 (mg/dL) Final [facility] ALBUMIN 12/15/2022 00:51:31 3.0 Below low normal 3.8-5.0 (g/dL) Final [facility] PROTEIN, TOTAL 12/15/2022 00:51:31 7.1 6.0-8.3 (g/dL) Final [facility] GLOBULIN 12/15/2022 00:51:31 4.1 Above high normal 1.8-3.8 (g/dL) Final [facility] ALBUMIN/GLOBULIN RATIO 12/15/2022 00:51:31 0.7 Below low normal 1.0-2.4 Final [facility] ALKALINE PHOSPHATASE 12/15/2022 00:51:31 121 50-153 (U/L) Final [facility] AST/SGOT 12/15/2022 00:51:31 8 Below low normal 10-50 (U/L) Final [facility] ALT/SGPT 12/15/2022 00:51:31 9 Below low normal 10-50 (U/L) Final [place] [address]
--- OUTSIDE RECORDS SUMMARY | 2022-12-29 21:28 | External Medical Summary | Summary of Care ---
Author Name Unknown Organization [facility] Address [address] [place] [address] Phone [phone] Care Team Providers Care Expert Medical Writer Name Role Phone Yaima Genao MD Primary Care Provider [phone] Reason for Referral * Evaluate & Treat - Unlimited Visits (Within 30 days (routine)) - Authorized Specialty Diagnoses / Procedures Referred By Contact Referred To Contact Endocrinology/Metabolism / Endocrinology Diagnoses Type 2 diabetes mellitus with diabetic neuropathy, with long-term current use of insulin (HCC) Yaima Genao MD [place] [id number] Referral ID Status Reason Start Date Expiration Date Visits Requested Visits Authorized [id number] Authorized Specialty Services Required 11/17/2022 999 999 Question Answer Referral Priority Within 30 days (routine) For what condition is the patient being referred? Diabetes Mellitus For which diabetes condition are you referring? Insulin Pump Comments He will not do insulin injections because he feels it makes his wounds worse. Consult for possible insulin pump Reason for Visit * Reason Comments Acute Infection on back of head Encounter Details Date Type Department Care Team Description 11/17/2022 Office Visit Osmar Pemberton [place] [id number] Yaima Genao MD [place] [id number] Cellulitis of head except face*; Abscess; Type 2 diabetes mellitus with diabetic neuropathy, with long-term current use of insulin (HCC); Type 2 diabetes mellitus with hemoglobin A1c goal of less than 8.0% ([facility]); Gastroesophageal reflux disease without esophagitis Allergies Active Allergy Reactions Severity Noted Date Comments Bee Venom Anaphylaxis High 04/16/2014 Penicillins Hives Medium 07/21/2013 documented as of this encounter (statuses as of 11/23/2022) Medications Medication Sig Dispensed Refills Start Date End Date Status Pregabalin 75 MG Oral Capsule (Lyrica) Take 1 Capsule by mouth in the morning and 1 Capsule before bedtime. 60 Capsule 0 11/17/2022 Active Sulfamethoxazole- Trimethoprim 800-160 MG Oral Tablet (Bactrim DS)Indications:Ce llulitis of head except face,Abscess Take 1 Tablet by mouth in the morning and 1 Tablet before bedtime. Until gone. 14 Tablet 0 11/17/2022 Active Pantoprazole Sodium 40 MG Oral Tablet Delayed Release (Protonix)Indicat ions:Gastroesopha geal reflux disease without esophagitis Take 1 Tablet by mouth in the morning. 90 Tablet 3 11/17/2022 Active Insulin Lispro (1 Unit Dial) 100 UNIT/ML Subcutaneous Solution Pen-injector (HumaLOG KwikPen) Inject 10 Units under the skin three times a day with meals. 15 mL 3 01/17/2021 3 Discontinued Pregabalin 75 MG Oral Capsule (Lyrica) Take 1 Capsule by mouth in the morning and 1 Capsule before bedtime. 60 Capsule 0 09/09/2022 3 Discontinued Famotidine 40 MG Oral Tablet (Pepcid) Take 1 Tablet by mouth in the morning. 0 3 Discontinued Ibuprofen 200 MG Oral Tablet (Motrin) Take 3 Tablets by mouth every 4 hours as needed. 0 3 Discontinued Sulfamethoxazole- Trimethoprim 800-160 MG Oral Tablet (Bactrim DS)Indications:Ce llulitis of head except face,Abscess Take 1 Tablet by mouth in the morning and 1 Tablet before bedtime. Do all this for 7 days. Until gone. 14 Tablet 0 11/17/2022 3 Discontinued(Ref ill) documented as of this encounter (statuses as of 11/23/2022) Active Problems Problem Noted Date Antisocial personality [...] as of this encounter (statuses as of 11/23/2022) Resolved Problems Problem Noted Date Resolved Date Food insecurity 09/23/2020 10/01/2022 Overview: Per [facility] Protocol DM type 2, not at goal 04/11/2019 Overview: Duplicated on pl cotton puller (current) use of insulin 12/29/2018 04/11/2019 Cannabis [...] as of this encounter (statuses as of 11/23/2022) Immunizations Name Administration Dates Next Due TDAP [...] Sign Reading Time Taken Comments Blood Pressure 126/80 11/17/2022 12:51 PM EDT Pulse 102 11/17/2022 12:51 PM EDT Temperature 36.6 C (97.9 F) 11/17/2022 12:51 PM E DT Respiratory Rate 18 11/17/2022 12:51 PM EDT Oxygen Saturation 98% 11/17/2022 12:51 PM EDT Inhaled Oxygen Concentration - - Weight 77.7 kg (171 lb 6.4 oz) 11/17/2022 12:51 PM EDT Height - - Body Mass Index 27.66 10/27/2022 2:24 PM EDT documented in this encounter Progress Notes * Yaima Genao MD - 11/17/2022 12:56 PM EDT Images from the original note were not included. Concerns Chief Complaint Patient presents with Chief Complaint Patient presents with Acute Infection on back of head HPI & ROS Gibson Rodgers is a 52 year old male is presenting for Acute (Infection on back of head) HPI #. Infection on the back of his head- present for 2-3 weeks It has been draining He is using warm compresses and pick at it and it drains down the back of his neck He also has noticed lumps in his neck on both sides No fever/chills Review of Systems Constitutional: Negative for chills and fever. Skin: Positive for wound. All other systems reviewed and are negative. Current Outpatient Medications Medication Sig Dispense Refill Sulfamethoxazole-Trimethoprim 800-160 MG Oral Tablet (Bactrim DS) Take 1 Tablet by mouth in the morning and 1 Tablet before bedtime. Do all this for 7 days. Until gone. 14 Tablet 0 Pregabalin 75 MG Oral Capsule (Lyrica) Take 1 Capsule by mouth in the morning and 1 Capsule before bedtime. 60 Capsule 0 No current facility-administered medications for this visit. Physical Exam BP 126/80 (BP Site: Right Arm, BP Position: Sitting, BP Cuff Size: Regular) | Pulse 102 | Temp 36.6C (97.9 F) (Tympanic) | Resp 18 | Wt 77.7 kg (171 lb 6.4 oz) | SpO2 98% | BMI 27.66 kg/m | BSA 1.9 m Body mass index is 27.66 kg/m. BP Readings from Last 3 Encounters: 11/17/22 126/80 10/27/22 149/98 09/09/22 150/84 Wt Readings from Last 3 Encounters: 11/17/22 77.7 kg (171 lb 6.4 oz) 10/27/22 74.8 kg (165 lb) 09/09/22 79 kg (174 lb 3.2 oz) Physical Exam Vitals reviewed. Constitutional: Appearance: Normal appearance. HENT: Head: Pulmonary: Effort: Pulmonary effort is normal. Neurological: Mental Status: He is alert and oriented to person, place, and time. Psychiatric: Mood and Affect: Mood normal. Behavior: Behavior normal. Assessment/ Plan Problem List Items Addressed This Visit Endocrine/Metabolic Type 2 diabetes mellitus with hemoglobin A1c goal of less than 8.0% ([facility]) (Chronic) Type 2 diabetes mellitus with diabetic neuropathy, with long-term current use of insulin ([facility]) Relevant Orders DIABETIC CUSTOM MOLDED SHOE ENDOCRINOLOGY REFERRAL OP Other Visit Diagnoses Cellulitis of head except face - Primary Relevant Medications Sulfamethoxazole-Trimethoprim 800-160 MG Oral Tablet (Bactrim DS) Abscess Relevant Medications Sulfamethoxazole-Trimethoprim 800-160 MG Oral Tablet (Bactrim DS) Tx infection with bactrim. F/u sooner if no improvement. 2 week f/u recommended. Endocrine referral to discuss insulin pump since he will no longer do injections All patient questions were addressed. The patient expressed understanding of the plan. Risks, benefits, and alternatives discussed. Advised to contact me with further questions or concerns. Yaima Genao M.D. documented in this encounter Nursing Notes * Annabelle Stephens LPN - 11/17/2022 12:50 PM EDT Chief Complaint Patient presents with Acute Infection on back of head Patient has been identified by name and date of . Patient reports that he has an infection on the back of his head. He reports that he was taking ibuprofen 3 tablets for his head and went to the ER 2 weeks. He was told that he shouldn't be taking them at the ER and he stopped taking them. He reports that it makes him sick when he does take it. Annabelle Stephens LPN 11/17/2022 12:51 PM documented in this encounter Plan of Treatment Upcoming Encounters Date Type Specialty Care Team Description 11/26/2022 Office Visit Endocrinology Jennifer Geronimo PA-C [address] [place] [address] 12/07/2022 Office Visit Family Medicine Yaima Genao MD [address] [place] [address] [place] [id number] Scheduled Referrals Name Type Priority Associated Diagnoses Order Schedule ENDOCRINOLOGY REFERRAL OP Referral Within 30 days (routine) Type 2 diabetes mellitus with diabetic neuropathy, with long-term current use of insulin (HCC) Ordered: 11/17/2022 Health Maintenance Due Date Last Done Comments [...] 12/17/2021 021, 10/04/2018, 01/29/2016 HbA1c 04/23/2022 10/24/2021, 11/0 03/2020, 09/17/2020, Additional history exists Depression, Most Recent Score >= 10 (will fire each visit until score < 10) 09/10/2022 09/09/2022 Influenza Vaccine (FLU shot) (#1) 2022 GFR 10/24/2022 10/24/2021, 11/0 03/2020, 09/17/2020, Additional history exists Diabetic Foot [...] as of this encounter Visit Diagnoses Diagnosis Cellulitis of head except face- Primary Cellulitis and abscess of other specified site Abscess Cellulitis and abscess of unspecified site Type 2 diabetes mellitus with diabetic neuropathy, with long-term current use of insulin (HCC) Type 2 diabetes mellitus with hemoglobin A1c goal of less than 8.0% (HCC) Gastroesophageal reflux disease without esophagitis Esophageal reflux documented in this encounter Advance Directives Latest Code Status on File Code Status Date Activated Date Inactivated Comments Full Code 06/07/2018 12:21 AM 06/14/2018 5:15 PM This order reflects the patients wishes and were consensually agreed upon. Question Answer Comments Discussion of Advance Directives occurred with: Patient Does the patient have a Living Will? No Does the patient have Health Care Power of Bulk Station Operator? No Code Status History Code Status Date Activated Date Inactivated Comments Full Code 04/16/2014 9:08 PM 04/25/2014 5:20 PM This o rder reflects the patients wishes and were consensually agreed upon. Care Teams Expert Medical Writer Relationship Specialty Start Date End Date Yaima Genao MD [address] [place] [id number] PCP - General Family Medicine 11/16/22 documented as of this encounter"
--- OUTSIDE RECORDS SUMMARY | 2022-12-29 21:28 | External Medical Summary ---
Author Name Unknown Address Unknown Organization : Laboratory Report Ordering Provider Test Date Status CARTER SANCHEZ 11/26/2022 10:16:54 Final Observation Date Value Abnormality Reference (Units ) Status HbA1C 11/26/2022 10:16:54 >14.0 Above high normal 4. 0-5.6 (%) Final Performing Location
--- OUTSIDE RECORDS SUMMARY | 2022-12-29 21:28 | External Medical Summary ---
Author Name Unknown Address Unknown Organization [place] [address] Laboratory Report Ordering Provider Test Date Status ALEA COHN 12/15/2022 00:51:31 Final Observation Date Value Abnormality Reference (Units ) Status [facility] MONOCYTE DISTRUBUTION WIDTH (MDW) 12/15/2022 00:51:31 18.63 13.37-22.56 Final The MDW parameter is an Shawn y Sepsis Indicator (ESID) that only applies to Emergency Room patients between the ages of 18-89 years, on whom a complete blood count with automated differential was performed within two (2) hours after collection. MDW values greater than 20.0 together with other laboratory findings and clinical information, aids in identifying patients with sepsis or at increased risk of developing sepsis[place] [address]
--- OUTSIDE RECORDS SUMMARY | 2022-12-29 21:28 | External Medical Summary ---
Author Name Unknown Address Unknown Organization K0N:[facility], [place] [address] Laboratory Report Ordering Provider Test Date Status ALEA COHN 12/15/2022 00:51:31 Final Large Platelets Present Observation Date Value Abnormality Reference (Units ) Status [facility] SYNC WHITE CELL COUNT - AUTO 12/15/2022 00:51:31 16.00 Above high normal 4.00-10.50 (k/uL) Final [facility] SEGMENTED NEUTROPHIL % - MANUAL 12/15/2022 00:51:31 62.0 37.0-63.0 (%) Final [facility] BANDS % - MANUAL 12/15/2022 00:51:31 5.0 0.0-10.0 (%) Final [facility] LYMPHOCYTES % - MANUAL 12/15/2022 00:51:31 23.0 Below low normal 33.0-37.0 (%) Final [facility] MONOCYTES % - MANUAL 12/15/2022 00:51:31 8.0 0.0-9.0 (%) Final [facility] EOSINOPHIL % - MANUAL 12/15/2022 00:51:31 2.0 0.0-7.0 (%) Final [facility] NEUTROPHIL # - MANUAL 12/15/2022 00:51:31 9.92 Above high normal 1.50-6.60 (K/uL) Final [facility] BANDS # - MANUAL 12/15/2022 00:51:31 0.80 (K/uL) Final [facility] LYMPHOCYTES # - MANUAL 12/15/2022 00:51:31 3.68 Above high normal 1.50-3.50 (K/uL) Final [facility] MONOCYTES # - MANUAL 12/15/2022 00:51:31 1.28 Above high normal 0.00-1.00 (K/uL) Final [facility] EOSINOPHIL COUNT # - MANUAL 12/15/2022 00:51:31 0.32 0.00-0.70 (K/uL) Final [facility] NEUTROPHILS, VACUOLATED 12/15/2022 00:51:31 Present Abnormal None Seen Final Performing Location [facility], [place] [address]
--- OUTSIDE RECORDS SUMMARY | 2022-12-29 21:28 | External Medical Summary ---
Author Name Unknown Address Unknown Organization K0N:[facility], [place] [address] Laboratory Report Ordering Provider Test Date Status TARIQ GUZMAN 12/15/2022 06:20:00 Final Observation Date Value Abnormality Reference (Units ) Status [facility] WHITE BLOOD CELL COUNT 12/15/2022 06:20:00 14.7 Above high normal 4.0-10.5 (K/uL) Final [facility] RED BLOOD CELL COUNT 12/15/2022 06:20:00 4.38 Below low normal 4.70-6.00 Final Hemoglobin 12/15/2022 06:20:00 12.2 Below low normal 13.5-18 (g/dL) Final HCT 12/15/2022 06:20:00 36.1 Below low normal 42-52 (%) Final [facility] MEAN CORPUSCULAR VOLUME 12/15/2022 06:20:00 82.3 78.0-100.0 (fl) Final [facility] MCH 12/15/2022 06:20:00 27.9 27.0-31.0 (pg) Final [facility] MCHC 12/15/2022 06:20:00 33.8 32.5-36.0 (g/dL) Final [facility] RED CELL DIST WIDTH 12/15/2022 06:20:00 12.7 11.5-14.0 (%) Final [facility] PLATELET COUNT 12/15/2022 06:20:00 473 Above high normal 150-450 (K/uL) Final [facility] MPV 12/15/2022 06:20:00 6.8 6.5-9.5 (fL) Final Performing Location [facility] [address]
--- OUTSIDE RECORDS SUMMARY | 2022-12-29 21:28 | External Medical Summary ---
Author Name Unknown Address Unknown Organization [place] [address] Laboratory Report Ordering Provider Test Date Status ALEA COHN 12/15/2022 00:51:31 Final Observation Date Value Abnormality Reference (Units ) Status [facility] MAGNESIUM 12/15/2022 00:51:31 1.90 1. 50-2.60 (mg/dL) [place] [address]
[2022-12-30] MEDS: HYDROmorphone INJ 0.5 MG/0.5 ML SYR IV PRN ×3 (00:31→16:11)
[2022-12-30] MEDS: oxyCODONE HCL IR 5 MG TAB (IMMEDIATE RELEASE) PO PRN ×3 (05:49→21:07)
[2022-12-30] MEDS: PANTOprazole 40 MG TAB PO SCH (05:49)
[2022-12-30] MEDS: ATORVASTATIN 20 MG TAB PO SCH (07:47)
[2022-12-30] MEDS: ENOXAPARIN INJ 40 MG/0.4 ML SYR SQ SCH (07:48)
[2022-12-30] MEDS: POLYETHYLENE (MIRALAX) 17 GM PACK PO SCH (07:48)
[2022-12-30] MEDS: lisinopril 5 MG TAB PO SCH (07:48)
[2022-12-30] MEDS: PREGABALIN 75 MG CAP PO SCH ×2 (07:48→21:07)
[2022-12-30 07:49] LABS: Basophils # (auto) 0.03 K/uL (0.00-0.20); Basophils % (auto) 0.2 %; Eosinophils # (auto) 0.24 K/uL (0.00-0.50); Eosinophils % (auto) 1.9 %; Hematocrit (blood only) 28.5 % (42.0-52.0); Hemoglobin 9.6 g/dl (14.0-18.0); Immature Granulocytes # (auto) 0.05 K/uL (0.01-0.20); Immature Granulocytes % (auto) 0.4 %; Lymphocytes # (auto) 3.09 K/uL (1.20-3.40); Mean Corpuscular Hemoglobin 28.1 pg (25.0-34.0); Mean Corpuscular Hgb Conc 33.7 g/dL (32.0-36.0); Mean Corpuscular Volume 83.3 fL (80.0-100.0); Mean Platelet Volume 8.5 fL (9.4-12.4); Monocytes # (auto) 0.98 K/uL (0.11-0.59); Monocytes % (auto) 7.9 %; Neutrophils # (auto) 7.97 K/uL (1.40-6.50); Neutrophils % (auto) 64.6 %; Platelet Count 431 K/uL (130-400); RDW Standard Deviation 36.6 fL (36.4-46.3); Red Blood Count 3.42 M/uL (4.70-6.10); White Blood Count 12.36 K/ul (4.8-10.8)
[2022-12-30] MEDS: ACETAMINOPHEN 325 MG TAB PO PRN (07:49)
[2022-12-30 09:05] LABS: Calcium 8.5 mg/dl (8.6-10.3); Creatinine Clr Calc Pharmacy 86.5 ml/min; Est GFR (African American) 99.8 ml/min; Est GFR (Non-African American) 86.2 ml/min; Potassium 4.1 mmol/L (3.5-5.1)
[2022-12-30] MEDS: LANTUS PER UNIT CHARGE SQ SCH ×2 (09:06→21:07)
[2022-12-30] MEDS: INSULIN ASPART PER UNIT CHARGE SC SCH ×4 (09:06→20:53)
[2022-12-30] MEDS: carvediloL 3.125 MG TAB PO SCH ×2 (11:01→17:59)
--- NOTE | 2022-12-30 11:51 | Urology Progress Note ---
Date of Service December 30, 2022 Assessment & Plan (1) Acute orchitis: (2) Left testicular pain: Plan Left epididymoorchitis/scrotal cellulitis - gradually improving with antibiotics. Remains afebrile, labs reviewed - WBC downtrending 16.60- 13.56- 12.36 today, Hemoglobin 9.6, Creatinine 1.00. Scrotal ultrasound 12/26 findings consistent with left-sided orchitis and scrotal wall thickening concerning for cellulitis. CT abdomen pelvis 12/26 with concern for possible cystitis. Urine culture was negative. No fluctuant areas or crepitus that would require surgical intervention appreciated on exam. Infectious disease consulted. Recommended Levofloxacin. Voiding spontaneously. Continue to monitor. Bladder scan as needed. Can consider addition of tamsulosin for lower urinary tract symptoms. Continue supportive care and antibiotic therapy. Recommend bowel regimen as patient reports constipation. He can try a cold pack to help with pain, scrotal elevation to help with any edema, and scrotal support. We discussed that it can take several weeks for symptoms to completely resolve. Urology will follow peripherally. Plan of care reviewed with Dr. Umana, on-call urologist. Admission and Anticipated Discharge Date Admission Date: December 27, 2022 Supervising Physician Co-Signing Physician Notes Discussed patient with [facility]. Agree with plan. Explained to the patient that resolution of inflammation can take 4 to 6 weeks. There is no indication for surgery as this will only worsen his symptoms Subjective Pt examined at bedside this AM. Awake, resting in bed on arrival. No acute distress. No fevers. Still with L>R scrotal/testicular pain and left groin pain. Voiding spontaneously. Reports some urinary hesitancy and slow stream Denies hematuria or dysuria. Tolerating diet. No nausea/vomiting. Patient reports last BM was 1 week ago. Review of Systems Constitutional: as per Subjective / HPI Gastrointestinal: as per Subjective / HPI Genitourinary: + as per Subjective / HPI Physical Exam Constitutional: well developed and well nourished; no acute distress Respiratory: normal respiratory effort; no respiratory distress and no labored breathing Gastrointestinal (Abdomen): Inspection/Auscultation: abdomen normal to inspection; abdomen not distended Percussion/Palpation: abdomen soft; abdomen nontender Neurologic: moves all extremities and awake Psychiatric: Orientation: alert and oriented x 3 Genitourinary: Left hemiscrotum is enlarged, firm, and erythematous but has slightly improved compared to yesterday. This area is tender to palpation. No fluctuance or crepitus appreciated. There is some penile edema. No open areas or drainage. Results & Data Vital Signs (Past 12 Hours) Vital Signs Temp Pulse Pulse Resp BP Pulse Ox O2 Del Method 12/30/22 11:00 36.7 C 95 H 16 162/93 H 99 Room Air 12/30/22 07:33 36.8 C 104 H 18 182/98 H 96 Room Air 12/30/22 07:10 94 H 12/30/22 03:02 36.7 C 96 H 18 151/79 H 97 Room Air PG Care Time/CCT Total # of Minutes Spent Total Time Spent with Patient: Total time spent is greater than 50% in coordination of care (as documented) at patient's floor/unit and/or counseling patient: Coding Level of Care Code 22559 SUB INP/OBS CARE 2/35MIN Diagnoses Acute orchitis N45.2 Left testicular pain N50.812
[2022-12-30] MEDS: levoFLOXacin/D5W 750 MG/150 ML BAG IV SCH (15:49)
[2022-12-30] MEDS ORDERED: TAMSULOSIN HCL 0.4 MG CAP PO ONE (17:07)
--- NOTE | 2022-12-30 18:12 | Hospitalist Progress Note ---
Date of Service December 30, 2022 Assessment & Plan (1) Cellulitis of scrotum: Plan: 52-year-old male with past med history significant for type 2 diabetes diabetic retinopathy, diabetic neuropathy, COPD, hypertension, GERD, cannabis use with anxiety disorder, PTSD, history of depression with suicidal ideation, antisocial personality disorder presents with left scrotal swelling going on since last Wednesday. Patient presented to the hospital with left scrotal swelling for several days Cellulitis of the scrotum Left-sided epididymoorchitis --CT ABD:Constipation. Status post appendectomy. No bowel obstruction pain. Bilateral perinephric stranding with possible cystitis and fullness of the urothelium on the left which may indicate infectious process. Cannot exclude left pyelonephritis. If indicated, these findings may be further assessed with urinalysis. --Scrotal uSD:Findings concerning for left-sided orchitis. Mild bilateral hydroceles, left more than right. Scrotal wall thickening concerning for cellulitis, clinical correlation recommended. --Urine Culture: Negative --- No concern for STDs Appreciate ID, urology input Continue Levaquin Continue ice pack, scrotal elevation Needs follow-up with urology upon discharge Urinary retention Bladder scan as needed Started on Flomax Urology following Type II diabetes mellitus Uncontrolled HbA1c 14.3 Was on NovoLog 70/30 mix at home Continue insulin per protocol Glycemic pharmacy consulted Adjust medications on discharge Hypertension Continue lisinopril Started on Coreg Monitor BP Hyperlipidemia On statin GERD On Protonix Diabetic neuropathy On pregabalin Depression Anxiety PTSD On Remeron DVT Px: Lovenox SQ Code Status Full code Admission and Anticipated Discharge Date Admission Date: December 27, 2022 Subjective Patient is seen and examined at bedside States having scrotal pain associated with swelling and erythema Denies any chest pain, dyspnea, dizziness Discussed with urology today No other complaints Review of Systems Review of Systems: All systems reviewed & are unremarkable except as noted in Subjective Physical Exam Physical Exam: Physical Exam: Vitals signs as noted above General Appearance:Moderately built and nourished, no apparent distress Head: normocephalic, Atraumatic Eyes: normal inspection, EOMI Neck: supple, Trachea midline Respiratory/Chest: Normal breath sounds, CTA, No accessory muscle use Cardiovascular: S1, S2, No murmur Abdomen/GI:Soft, Non tender, Bowel sounds present : Scrotal swelling, erythema, tender Extremities/Musculoskeletal:normal inspection, no edema Neurologic/Psych:AAOX3, grossly no focal neurological deficits Skin: normal color, warm Results & Data Results & Data Vital Signs (Past 12 Hours) Vital Signs Temp Pulse Pulse Resp BP Pulse Ox O2 Del Method 12/30/22 15:00 97 H 12/30/22 14:46 36.9 C 103 H 18 151/81 H 93 Room Air 12/30/22 11:00 36.7 C 95 H 16 162/93 H 99 Room Air 12/30/22 07:33 36.8 C 104 H 18 182/98 H 96 Room Air 12/30/22 07:10 94 H Laboratory Results Short CBC 12/30/22 Range/Units 07:26 WBC 12.36 H (4.8-10.8) K/ul Hgb 9.6 L (14.0-18.0) g/dl Hct 28.5 L (42.0-52.0) % Plt Count 431 H (130-400) K/uL BMP 12/30/22 07:26 Sodium 136 Potassium 4.1 Chloride 101 Carbon Dioxide 32 BUN 20 Creatinine 1.00 Glucose 136 H Calcium 8.5 L
[2022-12-30] MEDS: MIRTAZAPINE TAB 15 MG TAB PO SCH (20:57)
[2022-12-30] MEDS ORDERED: bisacodyL 10 MG SUPP PR STA (21:01)
[2022-12-30] MEDS ORDERED: LACTULOSE SYRUP 30 GM/45 ML UDP PO STA (21:01)
[2022-12-31] MEDS: HYDROmorphone INJ 0.5 MG/0.5 ML SYR IV PRN ×5 (00:50→20:55)
[2022-12-31] MEDS: oxyCODONE HCL IR 5 MG TAB (IMMEDIATE RELEASE) PO PRN ×4 (03:16→23:31)
[2022-12-31] MEDS: PANTOprazole 40 MG TAB PO SCH (03:17)
[2022-12-31 05:25] LABS: Mean Corpuscular Hgb Conc 33.3 g/dL (32.0-36.0); Mean Platelet Volume 8.9 fL (9.4-12.4); Platelet Count 461 K/uL (130-400); RDW Standard Deviation 36.7 fL (36.4-46.3); Red Blood Count 3.57 M/uL (4.70-6.10); White Blood Count 13.98 K/ul (4.8-10.8)
--- NOTE | 2022-12-31 08:50 | Pharmacy Report ---
Pharmacy Glycemic Short Note 2 - Date of Service December 31, 2022 - Glycemic Short BSG Results (Last 24 hours): 12/30/22 12/30/22 12/30/22 07:26 12:13 17:24 Glucose 136 H POC Glucose 94 94 12/30/22 12/31/22 19:37 07:32 Glucose POC Glucose 132 H 160 H OUTPATIENT ANTIDIABETIC REGIMEN: * Novolog mix 70/30 - 30 units bidm - per external fill hx HbA1c: 14.3% (12/27/22) ASSESSMENT: 12/31: * BSGs well-controlled over past 24 hours, ranging 94-143 mg/dL * Received 35 units of insulin yesterday (24 units of basal and 11 units of prandial/correctional bolus) * Carb ratio loosened yesterday due to concern of possible hypoglycemia with lunch/dinner BSGs in 90s * Do not anticipate any changes to glycemic regimen today 12/29: * Fasting trending downward 96 mg/dL this morning- basal will be reduced 17-34% overall per scale * Prandial BSGs have been at goal will continue current novolog parameters for now 12/28 * 52 year old admitted with scrotal cellulitis, started on broad spectrum antibiotics. Pharmacy consulted for glycemic management. Discussed with patient home insulin dosing and he reports taking insulin per scale provided by his provider, however he does not remember scale. He was able to tell me if BSG >300 he takes 35 units and BSG>350 he takes 40 units. * Started patient with stress of 2 dosing for insulin, received total of 33 units of insulin yesterday. * Fasting BSG 150, reasonable to continue same basal for now. Anticipate insulin needs to increase once PO intake improves. A1c ~14.3% on admission. PLAN FOR INPATIENT GLYCEMIC CONTROL: * Hold outpatient oral diabetes medications * Basal insulin * Lantus 12 units SQ BID * Bolus insulin * NovoLog per scale ACHS or Q6hrs while NPO * Goal Range: Low 140 mg/dL - High 180 mg/dL * Correction Factor: 30 mg/dL/unit * Nutritional / Prandial insulin per carb ratio of 1 unit per 15 grams CHO consumed
[2022-12-31] MEDS: LANTUS PER UNIT CHARGE SQ SCH ×2 (09:07→20:53)
[2022-12-31] MEDS: INSULIN ASPART PER UNIT CHARGE SC SCH ×4 (09:08→20:54)
[2022-12-31] MEDS: lisinopril 5 MG TAB PO SCH (09:11)
[2022-12-31] MEDS: TAMSULOSIN HCL 0.4 MG CAP PO SCH (09:11)
[2022-12-31] MEDS: ENOXAPARIN INJ 40 MG/0.4 ML SYR SQ SCH (09:11)
[2022-12-31] MEDS: POLYETHYLENE (MIRALAX) 17 GM PACK PO SCH (09:11)
[2022-12-31] MEDS: ATORVASTATIN 20 MG TAB PO SCH (09:11)
[2022-12-31] MEDS: carvediloL 3.125 MG TAB PO SCH ×2 (09:11→17:49)
[2022-12-31] MEDS: PREGABALIN 75 MG CAP PO SCH ×2 (09:19→20:54)
--- NOTE | 2022-12-31 12:47 | Urology Progress Note ---
Date of Service December 31, 2022 Assessment & Plan (1) Acute orchitis: (2) Left testicular pain: Plan Left epididymoorchitis/scrotal cellulitis - gradually improving with antibiotics. Remains afebrile, labs reviewed - WBC 13.98, Hemoglobin 10, Creatinine 1.00. Scrotal ultrasound 12/26 findings consistent with left-sided orchitis and scrotal wall thickening concerning for cellulitis. CT abdomen pelvis 12/26 with concern for possible cystitis. Urine culture was negative. On Levofloxacin. Voiding spontaneously. Has had PVRs of 358-547. We discussed incomplete emptying and urinary retention. Risks of this discussed. Recommended possible Casey catheter placement or straight catheterization as needed for urinary retention - he declined. Risks discussed. Recommend continuing to monitor PVRs. Encourage double voiding. Continue tamsulosin. Continue supportive care and antibiotic therapy. Recommend bowel regimen as patient reports constipation. He can try a cold pack to help with pain, scrotal elevation to help with any edema, and scrotal support. We discussed that it can take several weeks for symptoms to completely resolve. Urology will follow. Admission and Anticipated Discharge Date Admission Date: December 27, 2022 Subjective Pt examined at bedside this AM. Awake, resting in bed on arrival. No acute distress. No fevers. Still with L>R scrotal/testicular pain and left groin pain. Voiding spontaneously but reports some urinary hesitancy and slow stream. Has been bladder scanned for volumes of [id number]. Denies hematuria or dysuria. Tolerating diet. No nausea/vomiting. Patient reports constipation. Review of Systems Constitutional: as per Subjective / HPI Gastrointestinal: as per Subjective / HPI Genitourinary: + as per Subjective / HPI Physical Exam Constitutional: well developed and well nourished; no acute distress Respiratory: normal respiratory effort; no respiratory distress and no labored breathing Gastrointestinal (Abdomen): Inspection/Auscultation: abdomen normal to inspection; abdomen not distended Percussion/Palpation: abdomen soft; abdomen nontender Neurologic: moves all extremities and awake Psychiatric: Orientation: alert and oriented x 3 Genitourinary: Left hemiscrotum is enlarged, firm, and erythematous but has slightly improved compared to yesterday. This area is tender to palpation. There is some penile edema. No open areas or drainage. Mild right scrotal erythema and edema. No fluctuance or crepitus appreciated. Results & Data Vital Signs (Past 12 Hours) Vital Signs Temp Pulse Pulse Resp BP Pulse Ox O2 Del Method 12/31/22 08:13 37.1 C 101 H 18 131/77 97 Room Air 12/31/22 08:00 98 H 12/31/22 03:38 36.9 C 112 H 18 163/88 H 97 Room Air PG Care Time/CCT Total # of Minutes Spent Total Time Spent with Patient: Total time spent is greater than 50% in coordination of care (as documented) at patient's floor/unit and/or counseling patient: Coding Level of Care Code 19343 SUB INP/OBS CARE 2/35MIN Diagnoses Acute orchitis N45.2 Left testicular pain N50.812
[2022-12-31] MEDS ORDERED: bisacodyL 10 MG SUPP PR PRN (15:17)
[2022-12-31] MEDS: levoFLOXacin/D5W 750 MG/150 ML BAG IV SCH (15:36)
[2022-12-31] MEDS: DOCUSATE SODIUM 100 MG CAP PO SCH ×2 (15:44→20:54)
--- NOTE | 2022-12-31 17:09 | Hospitalist Progress Note ---
Date of Service December 31, 2022 Assessment & Plan (1) Cellulitis of scrotum: Plan: 52-year-old male with past med history significant for type 2 diabetes diabetic retinopathy, diabetic neuropathy, COPD, hypertension, GERD, cannabis use with anxiety disorder, PTSD, history of depression with suicidal ideation, antisocial personality disorder presents with left scrotal swelling going on since last Wednesday. Patient presented to the hospital with left scrotal swelling for several days Cellulitis of the scrotum Left-sided epididymoorchitis --CT ABD:Constipation. Status post appendectomy. No bowel obstruction pain. Bilateral perinephric stranding with possible cystitis and fullness of the urothelium on the left which may indicate infectious process. Cannot exclude left pyelonephritis. If indicated, these findings may be further assessed with urinalysis. --Scrotal uSD:Findings concerning for left-sided orchitis. Mild bilateral hydroceles, left more than right. Scrotal wall thickening concerning for cellulitis, clinical correlation recommended. --Negative Nasal MRSA --Urine Culture: Negative --- No concern for STDs Appreciate ID, urology input Continue Levaquin Continue ice pack, scrotal elevation Needs follow-up with urology upon discharge We will consider adding broad-spectrum antibiotics if no improvement Urinary retention Bladder scan as needed Started on Flomax Urology following Straight cath as needed for now Will consider placing Casey if continues to retain Constipation Started on bowel regimen Monitor Type II diabetes mellitus Uncontrolled HbA1c 14.3 Was on NovoLog 70/30 mix at home Continue insulin per protocol Glycemic pharmacy consulted Adjust medications on discharge Hypertension Continue lisinopril Started on Coreg 3.125 mg twice daily Monitor BP Hyperlipidemia On statin GERD On Protonix Diabetic neuropathy On pregabalin Depression Anxiety PTSD On Remeron DVT Px: Lovenox SQ Code Status Full code Admission and Anticipated Discharge Date Admission Date: December 27, 2022 Subjective Patient is seen and examined at bedside Scrotal pain especially with movement Also reports constipation, urinary retention Denies any chest pain, dyspnea, dizziness Persistent leukocytosis Review of Systems Review of Systems: All systems reviewed & are unremarkable except as noted in Subjective Physical Exam Physical Exam: Physical Exam: Vitals signs as noted above General Appearance:Moderately built and nourished, no apparent distress Head: normocephalic, Atraumatic Eyes: normal inspection, EOMI Neck: supple, Trachea midline Respiratory/Chest: Normal breath sounds, CTA, No accessory muscle use Cardiovascular: S1, S2, No murmur Abdomen/GI:Soft, Non tender, Bowel sounds present : Scrotal swelling, erythema, tender Extremities/Musculoskeletal:normal inspection, no edema Neurologic/Psych:AAOX3, grossly no focal neurological deficits Skin: normal color, warm Results & Data Results & Data Vital Signs (Past 12 Hours) Vital Signs Temp Pulse Pulse Resp BP Pulse Ox O2 Del Method 12/31/22 15:32 37.1 C 98 H 20 129/75 97 Room Air 12/31/22 12:58 36.8 C 99 H 18 156/78 H 97 Room Air 12/31/22 08:13 37.1 C 101 H 18 131/77 97 Room Air 12/31/22 08:00 98 H Laboratory Results Short CBC 12/31/22 Range/Units 04:17 WBC 13.98 H (4.8-10.8) K/ul Hgb 10.0 L (14.0-18.0) g/dl Hct 30.0 L (42.0-52.0) % Plt Count 461 H (130-400) K/uL
[2022-12-31] MEDS: MIRTAZAPINE TAB 15 MG TAB PO SCH (20:53)
[2022-12-31] MEDS: SENNA 8.6 MG TAB PO SCH (20:54)
[2023-01-01] MEDS: HYDROmorphone INJ 0.5 MG/0.5 ML SYR IV PRN ×4 (02:01→20:49)
[2023-01-01] MEDS: PANTOprazole 40 MG TAB PO SCH (06:06)
[2023-01-01 07:28] LABS: BUN Creatinine Ratio 24.3 (10-20); Calcium 8.7 mg/dl (8.6-10.3); Creatinine Clr Calc Pharmacy 76.2 ml/min; Est GFR (African American) 84.3 ml/min; Est GFR (Non-African American) 72.8 ml/min; Potassium 4.2 mmol/L (3.5-5.1)
[2023-01-01 07:40] LABS: Hematocrit (blood only) 27.5 % (42.0-52.0); Mean Corpuscular Hemoglobin 27.7 pg (25.0-34.0); Mean Corpuscular Hgb Conc 32.7 g/dL (32.0-36.0); Mean Corpuscular Volume 84.6 fL (80.0-100.0); Mean Platelet Volume 8.7 fL (9.4-12.4); Platelet Count 391 K/uL (130-400); RDW Standard Deviation 37.1 fL (36.4-46.3); Red Blood Count 3.25 M/uL (4.70-6.10)
[2023-01-01] MEDS: oxyCODONE HCL IR 5 MG TAB (IMMEDIATE RELEASE) PO PRN ×2 (08:28→22:00)
[2023-01-01] MEDS: PREGABALIN 75 MG CAP PO SCH ×2 (08:28→21:43)
[2023-01-01] MEDS: DOCUSATE SODIUM 100 MG CAP PO SCH ×2 (08:28→21:41)
[2023-01-01] MEDS: POLYETHYLENE (MIRALAX) 17 GM PACK PO SCH (08:28)
[2023-01-01] MEDS: lisinopril 5 MG TAB PO SCH (08:29)
[2023-01-01] MEDS: TAMSULOSIN HCL 0.4 MG CAP PO SCH (08:29)
[2023-01-01] MEDS: ATORVASTATIN 20 MG TAB PO SCH (08:29)
[2023-01-01] MEDS: ENOXAPARIN INJ 40 MG/0.4 ML SYR SQ SCH (08:29)
[2023-01-01] MEDS: carvediloL 3.125 MG TAB PO SCH ×2 (08:29→17:27)
[2023-01-01] MEDS: LANTUS PER UNIT CHARGE SQ SCH ×2 (09:02→21:42)
[2023-01-01] MEDS: INSULIN ASPART PER UNIT CHARGE SC SCH ×4 (09:02→21:43)
--- NOTE | 2023-01-01 12:48 | Pharmacy Report ---
Pharmacy Glycemic Short Note 2 - Date of Service January 01, 2023 - Glycemic Short BSG Results (Last 24 hours): 12/31/22 12/31/22 01/01/23 17:07 20:23 00:31 Glucose POC Glucose 135 H 118 H 147 H 01/01/23 01/01/23 01/01/23 05:58 06:43 08:28 Glucose 133 H POC Glucose 136 H 145 H 01/01/23 12:20 Glucose POC Glucose 171 H OUTPATIENT ANTIDIABETIC REGIMEN: * Novolog mix 70/30 - 30 units bidm - per external fill hx HbA1c: 14.3% (12/27/22) ASSESSMENT: 01/01: * BSGs remain reasonably well-controlled, ranging 118-160 mg/dL yesterday * Fasting BSG of 136 mg/dL w/ increase at lunch to 171 mg/dL * Will slightly tighten Novolog parameters and goal range today * No other changes anticipated for today 12/31: * BSGs well-controlled over past 24 hours, ranging 94-143 mg/dL * Received 35 units of insulin yesterday (24 units of basal and 11 units of prandial/correctional bolus) * Carb ratio loosened yesterday due to concern of possible hypoglycemia with lunch/dinner BSGs in 90s * Do not anticipate any changes to glycemic regimen today 12/29: * Fasting trending downward 96 mg/dL this morning- basal will be reduced 17-34% overall per scale * Prandial BSGs have been at goal will continue current novolog parameters for now 12/28 * 52 year old admitted with scrotal cellulitis, started on broad spectrum an tibiotics. Pharmacy consulted for glycemic management. Discussed with patient home insulin dosing and he reports taking insulin per scale provided by his provider, however he does not remember scale. He was able to tell me if BSG >300 he takes 35 units and BSG>350 he takes 40 units. * Started patient with stress of 2 dosing for insulin, received total of 33 units of insulin yesterday. * Fasting BSG 150, reasonable to continue same basal for now. Anticipate insulin needs to increase once PO intake improves. A1c ~14.3% on admission. PLAN FOR INPATIENT GLYCEMIC CONTROL: * Hold outpatient oral diabetes medications * Basal insulin * Lantus 12 units SQ BID * Bolus insulin * NovoLog per scale ACHS or Q6hrs while NPO * Goal Range: Low 120 mg/dL - High 160 mg/dL * Correction Factor: 30 mg/dL/unit * Nutritional / Prandial insulin per carb ratio of 1 unit per 12 grams CHO consumed
--- NOTE | 2023-01-01 14:27 | Urology Progress Note ---
Date of Service January 01, 2023 Assessment & Plan (1) Acute orchitis: (2) Left testicular pain: Plan Left epididymoorchitis/scrotal cellulitis - gradually improving with antibiotics. Scrotal edema and erythema has significantly improved since yesterday. Remains afebrile and hemodynamically stable. Labs reviewedWBC improved to 11.7, hemoglobin 9, creatinine 1.15. Scrotal ultrasound 12/26 findings consistent with left-sided orchitis and scrotal wall thickening concerning for cellulitis. CT abdomen pelvis 12/26 with concern for possible cystitis. Urine culture was negative. Continues on Levofloxacin. Voiding spontaneously. Has had PVRs of 358-547. We discussed incomplete emptying and urinary retention. Risks of this discussed. Discussed intermittent catheterizations or Casey catheter placement for management of urinary retention, he declined. Risks of this discussed. Recommend continuing to monitor PVRs. Encourage double voiding. Continue tamsulosin. Continue supportive care and antibiotic therapy. Continue bowel regimen. Continue conservative management with cold pack to help with pain, scrotal elevation to help with any edema, and scrotal support. We discussed that it can take several weeks for symptoms to completely resolve. Will arrange outpatient follow-up with our service. Urology will follow peripherally. Please contact us with any further questions/concerns. Admission and Anticipated Discharge Date Admission Date: December 27, 2022 Subjective Pt examined at bedside this AM. Awake, resting in bed on arrival. No acute distress. No fevers. Scrotal erythema and edema has improved significantly since yesterday. Voiding spontaneously but reports some urinary hesitancy and slow stream. Has been bladder scanned for volumes of [id number]. Has declined Casey catheter. Denies hematuria or dysuria. Tolerating diet. No nausea/vomiting. Review of Systems Constitutional: as per Subjective / HPI Gastrointestinal: as per Subjective / HPI Genitourinary: + as per Subjective / HPI Physical Exam Constitutional: no acute distress Respiratory: normal respiratory effort; no respiratory distress and no labored breathing Gastrointestinal (Abdomen): Inspection/Auscultation: abdomen normal to inspection; abdomen not distended Percussion/Palpation: abdomen soft; abdomen nontender Neurologic: moves all extremities and awake Psychiatric: Orientation: alert and oriented x 3 Genitourinary: Left hemiscrotum is mildly enlarged and erythematous but has significantly improved compared to yesterday. This area is mildly tender to palpation. There is some penile edema. No open areas or drainage. No skin discoloration. Mild right scrotal erythema and edema. No fluctuance or crepitus appreciated on exam. Results & Data Vital Signs (Past 12 Hours) Vital Signs Temp Pulse Pulse Pulse Resp BP BP 01/01/23 13:12 37.3 C 84 16 140/90 01/01/23 08:09 36.6 C 82 16 136/78 01/01/23 07:39 101 H 01/01/23 02:45 36.6 C 87 18 123/74 Pulse Ox O2 Del Method 01/01/23 13:12 95 Room Air 01/01/23 08:09 93 Room Air 01/01/23 07:39 01/01/23 02:45 97 Room Air PG Care Time/CCT Total # of Minutes Spent Total Time Spent with Patient: Total time spent is greater than 50% in coordination of care (as documented) at patient's floor/unit and/or counseling patient: Coding Level of Care Code 18768 SUB INP/OBS CARE 2/35MIN Diagnoses Acute orchitis N45.2 Left testicular pain N50.812
--- NOTE | 2023-01-01 16:51 | Hospitalist Progress Note ---
Date of Service January 01, 2023 Assessment & Plan (1) Cellulitis of scrotum: Plan: 52-year-old male with past med history significant for type 2 diabetes diabetic retinopathy, diabetic neuropathy, COPD, hypertension, GERD, cannabis use with anxiety disorder, PTSD, history of depression with suicidal ideation, antisocial personality disorder presents with left scrotal swelling going on since last Wednesday. Patient presented to the hospital with left scrotal swelling for several days Cellulitis of the scrotum Left-sided epididymoorchitis --CT ABD:Constipation. Status post appendectomy. No bowel obstruction pain. Bilateral perinephric stranding with possible cystitis and fullness of the urothelium on the left which may indicate infectious process. Cannot exclude left pyelonephritis. If indicated, these findings may be further assessed with urinalysis. --Scrotal USD:Findings concerning for left-sided orchitis. Mild bilateral hydroceles, left more than right. Scrotal wall thickening concerning for cellulitis, clinical correlation recommended. --Negative Nasal MRSA --Urine Culture: Negative --- No concern for STDs Appreciate ID, urology input Continue Levaquin Continue ice pack, scrotal elevation Needs follow-up with urology upon discharge Gradually improving Leukocytosis trending down, scrotal erythema improving Needs follow-up with urology upon discharge Urinary retention Bladder scan as needed to measure PVR Started on Flomax Urology following Reluctant to have Casey placement Advised double voiding Constipation Continue bowel regimen Monitor Bipolar disorder PTSD Currently not on any maintenance medications due to intolerance as per patient Consulted psychiatry Type II diabetes mellitus Uncontrolled HbA1c 14.3 Was on NovoLog 70/30 mix at home Continue insulin per protocol Glycemic pharmacy consulted Adjust medications on discharge Hypertension Continue lisinopril Started on Coreg 3.125 mg twice daily Monitor BP Hyperlipidemia On statin GERD On Protonix Diabetic neuropathy On pregabalin Depression Anxiety PTSD On Remeron DVT Px: Lovenox SQ Code Status Full code Admission and Anticipated Discharge Date Admission Date: December 27, 2022 Subjective Patient is seen and examined at bedside COVID-related pneumonia seem to be much improved Still has scrotal pain with ambulation, movement Discussed with urology today Reluctant to have Casey catheter Still having some urinary retention on bladder scan Denies any hematuria, dysuria, chest pain, dyspnea, dizziness Leukocytosis trending down Review of Systems Review of Systems: All systems reviewed & are unremarkable except as noted in Subjective Physical Exam Physical Exam: Physical Exam: Vitals signs as noted above General Appearance:Moderately built and nourished, no apparent distress Head: normocephalic, Atraumatic Eyes: normal inspection, EOMI Neck: supple, Trachea midline Respiratory/Chest: Normal breath sounds, CTA, No accessory muscle use Cardiovascular: S1, S2, No murmur Abdomen/GI:Soft, Non tender, Bowel sounds present : Scrotal swelling, erythema, tender Extremities/Musculoskeletal:normal inspection, no edema Neurologic/Psych:AAOX3, grossly no focal neurological deficits Skin: normal color, warm Results & Data Results & Data Vital Signs (Past 12 Hours) Vital Signs Temp Pulse Pulse Resp BP Pulse Ox O2 Del Method 01/01/23 15:53 103 H 01/01/23 13:12 37.3 C 84 16 140/90 95 Room Air 01/01/23 08:09 36.6 C 82 16 136/78 93 Room Air 01/01/23 07:39 101 H Laboratory Results Short CBC 01/01/23 Range/Units 06:43 WBC 11.70 H (4.8-10.8) K/ul Hgb 9.0 L (14.0-18.0) g/dl Hct 27.5 L (42.0-52.0) % Plt Count 391 (130-400) K/uL BMP 01/01/23 06:43 Sodium 136 Potassium 4.2 Chloride 102 Carbon Dioxide 29 BUN 28 H Creatinine 1.15 Glucose 133 H Calcium 8.7
[2023-01-01] MEDS: levoFLOXacin/D5W 750 MG/150 ML BAG IV SCH (17:26)
[2023-01-01] MEDS: MIRTAZAPINE TAB 15 MG TAB PO SCH (21:41)
[2023-01-01] MEDS: SENNA 8.6 MG TAB PO SCH (21:42)
[2023-01-02] MEDS: HYDROmorphone INJ 0.5 MG/0.5 ML SYR IV PRN ×3 (01:35→11:59)
[2023-01-02 05:50] LABS: Hematocrit (blood only) 25.9 % (42.0-52.0); Hemoglobin 8.5 g/dl (14.0-18.0); Mean Corpuscular Hemoglobin 27.2 pg (25.0-34.0); Mean Corpuscular Hgb Conc 32.8 g/dL (32.0-36.0); Mean Corpuscular Volume 82.7 fL (80.0-100.0); Mean Platelet Volume 8.5 fL (9.4-12.4); Platelet Count 356 K/uL (130-400); RDW Coefficient of Variation 12.1 % (11.5-14.5); RDW Standard Deviation 36.9 fL (36.4-46.3); Red Blood Count 3.13 M/uL (4.70-6.10)
[2023-01-02] MEDS: PANTOprazole 40 MG TAB PO SCH (06:04)
[2023-01-02 06:31] LABS: Calcium 8.7 mg/dl (8.6-10.3); Potassium 4.2 mmol/L (3.5-5.1)
[2023-01-02 06:36] LABS: BUN Creatinine Ratio 27.3 (10-20); Creatinine Clr Calc Pharmacy 79.4 ml/min; Est GFR (Non-African American) 76.8 ml/min
[2023-01-02] MEDS: PREGABALIN 75 MG CAP PO SCH (07:54)
[2023-01-02] MEDS: DOCUSATE SODIUM 100 MG CAP PO SCH (07:54)
[2023-01-02] MEDS: oxyCODONE HCL IR 5 MG TAB (IMMEDIATE RELEASE) PO PRN (07:54)
[2023-01-02] MEDS: TAMSULOSIN HCL 0.4 MG CAP PO SCH (07:55)
[2023-01-02] MEDS: POLYETHYLENE (MIRALAX) 17 GM PACK PO SCH (07:55)
[2023-01-02] MEDS: lisinopril 5 MG TAB PO SCH (07:55)
[2023-01-02] MEDS: ATORVASTATIN 20 MG TAB PO SCH (07:55)
[2023-01-02] MEDS: carvediloL 3.125 MG TAB PO SCH (07:55)
[2023-01-02] MEDS: ENOXAPARIN INJ 40 MG/0.4 ML SYR SQ SCH (07:56)
[2023-01-02] MEDS: LANTUS PER UNIT CHARGE SQ SCH (08:57)
[2023-01-02] MEDS: INSULIN ASPART PER UNIT CHARGE SC SCH ×2 (08:57→12:56)
--- NOTE | 2023-01-02 10:14 | Urology Progress Note ---
Date of Service January 02, 2023 Assessment & Plan (1) Acute orchitis: Plan Epididymoorchitis Improving appropriately On Levaquin Continue Discussed the expected time course for full resolution (weeks) Discussed the importance of glucose control Urinating adequately Labs stableminimal bump in his white blood cell count today, uncertain this has any significance given the stability of his other vitals, etc. No planned interventions from a standpoint, stable for discharge home with a long course of antibiotics (infectious disease consult previouslythey can determine the appropriate length of course) Admission and Anticipated Discharge Date Admission Date: December 27, 2022 Subjective Gradually improving Reports that he still has discomfort with movement but it is not as severe as it was in the past He also feels that his level of edema and erythema have both improved Tolerating his antibiotics No other major complaints today Reports that he is voiding better now than he was over the past few days PVRs have also been lower confirming this suspicion Physical Exam Physical Exam: Mild erythema across the scrotum Induration of the left testis and epididymis as well as distal cord No crepitus, no fluctuance, no drainable abscess No significant skin breakdown, some dry skin only Overall seems to be improving Results & Data Vital Signs (Past 12 Hours) Vital Signs Temp Pulse Pulse Pulse Resp BP BP 01/02/23 09:19 01/02/23 07:30 36.5 C 90 16 144/83 H 01/02/23 07:25 89 01/02/23 03:56 01/02/23 03:32 37.0 C 94 H 18 146/82 H 01/01/23 23:38 37.0 C 100 H 20 158/84 H 01/01/23 22:31 103 H Pulse Ox O2 Del Method 01/02/23 09:19 Room Air 01/02/23 07:30 95 Room Air 01/02/23 07:25 01/02/23 03:56 Room Air 01/02/23 03:32 95 Room Air 01/01/23 23:38 95 Room Air 01/01/23 22:31 PG Care Time/CCT Total # of Minutes Spent Total Time Spent with Patient: Total time spent is greater than 50% in coordination of care (as documented) at patient's floor/unit and/or counseling patient: Coding Level of Care Code 84900 SUB INP/OBS CARE 2/35MIN Diagnoses Acute orchitis N45.2
--- NOTE | 2023-01-02 13:19 | Hospitalist Progress Note ---
Date of Service January 02, 2023 Assessment & Plan (1) Cellulitis of scrotum: Plan: 52-year-old male with past med history significant for type 2 diabetes diabetic retinopathy, diabetic neuropathy, COPD, hypertension, GERD, cannabis use with anxiety disorder, PTSD, history of depression with suicidal ideation, antisocial personality disorder presents with left scrotal swelling going on since last Wednesday. Patient presented to the hospital with left scrotal swelling for several days Cellulitis of the scrotum Left-sided epididymoorchitis --CT ABD:Constipation. Status post appendectomy. No bowel obstruction pain. Bilateral perinephric stranding with possible cystitis and fullness of the urothelium on the left which may indicate infectious process. Cannot exclude left pyelonephritis. If indicated, these findings may be further assessed with urinalysis. --Scrotal USD:Findings concerning for left-sided orchitis. Mild bilateral hydroceles, left more than right. Scrotal wall thickening concerning for cellulitis, clinical correlation recommended. --Negative Nasal MRSA --Urine Culture: Negative --- No concern for STDs Appreciate ID, urology input Continue Levaquin Continue ice pack, scrotal elevation Needs follow-up with urology upon discharge Clinically improving Plan to discharge home today Urinary retention Bladder scan as needed to measure PVR Started on Flomax Urology following Reluctant to have Casey placement Advised double voiding Voiding better after starting Flomax Advised to follow-up with urology upon discharge Constipation Continue bowel regimen Monitor Bipolar disorder PTSD Currently not on any maintenance medications due to intolerance as per patient Advised to follow-up with psychiatrist as outpatient Type II diabetes mellitus Uncontrolled HbA1c 14.3 Was on NovoLog 70/30 mix at home Continue insulin per protocol Glycemic pharmacy consulted Adjust medications on discharge Hypertension Continue lisinopril Started on Coreg 3.125 mg twice daily Monitor BP Hyperlipidemia On statin GERD On Protonix Diabetic neuropathy On pregabalin Depression Anxiety PTSD On Remeron DVT Px: Lovenox SQ Code Status Full code Disposition Home Admission and Anticipated Discharge Date Admission Date: December 27, 2022 Subjective Patient is seen and examined at bedside Urinating well, no significant urinary retention on bladder scan Scrotal swelling slowly improving No new complaints Pain is controlled Denies any chest pain, dyspnea, dizziness Plan to discharge home today Review of Systems Review of Systems: All systems reviewed & are unremarkable except as noted in Subjective Physical Exam Physical Exam: Physical Exam: Vitals signs as noted above General Appearance:Moderately built and nourished, no apparent distress Head: normocephalic, Atraumatic Eyes: normal inspection, EOMI Neck: supple, Trachea midline Respiratory/Chest: Normal breath sounds, CTA, No accessory muscle use Cardiovascular: S1, S2, No murmur Abdomen/GI:Soft, Non tender, Bowel sounds present : Scrotal swelling, erythema, tender Extremities/Musculoskeletal:normal inspection, no edema Neurologic/Psych:AAOX3, grossly no focal neurological deficits Skin: normal color, warm Results & Data Results & Data Vital Signs (Past 12 Hours) Vital Signs Temp Pulse Pulse Pulse Resp BP BP 01/02/23 11:44 37.1 C 51 L 18 121/72 01/02/23 09:19 01/02/23 07:30 36.5 C 90 16 144/83 H 01/02/23 07:25 89 01/02/23 03:56 01/02/23 03:32 37.0 C 94 H 18 146/82 H Pulse Ox O2 Del Method 01/02/23 11:44 95 Room Air 01/02/23 09:19 Room Air 01/02/23 07:30 95 Room Air 01/02/23 07:25 01/02/23 03:56 Room Air 01/02/23 03:32 95 Room Air Laboratory Results Short CBC 01/02/23 Range/Units 05:32 WBC 13.80 H (4.8-10.8) K/ul Hgb 8.5 L (14.0-18.0) g/dl Hct 25.9 L (42.0-52.0) % Plt Count 356 (130-400) K/uL BMP 01/02/23 05:32 Sodium 136 Potassium 4.2 Chloride 103 Carbon Dioxide 28 BUN 30 H Creatinine 1.10 Glucose 144 H Calcium 8.7
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
[2023-01-02] MEDS ORDERED: levoFLOXacin 750 MG TAB PO SCH (17:00)
--- NOTE | 2023-01-02 20:32 | Communication Note ---
Date of Service: January 02, 2023 By the time I arrived on pt's unit for assessment, he'd already been discharged.
== END 2023-01-02 14:57 | disposition home or self-care (01) | DRG 728 ==
LOC: ED 18:36 → SUATTDRO 12-27 01:24 → EDINP 12-27 01:24 → 2N 12-27 04:14
DX: F12.980 Cannabis use, unspecified with anxiety disorder; F43.10 Post-traumatic stress disorder, unspecified; N45.3 Epididymo-orchitis; N43.3 Hydrocele, unspecified; Z79.4 Long term (current) use of insulin; F31.9 Bipolar disorder, unspecified; E11.40 Type 2 diabetes mellitus with diabetic neuropathy, unspecified; F60.2 Antisocial personality disorder; Z83.3 Family history of diabetes mellitus; E11.65 Type 2 diabetes mellitus with hyperglycemia; Z87.891 Personal history of nicotine dependence; K21.9 Gastro-esophageal reflux disease without esophagitis; R33.9 Retention of urine, unspecified; Z88.0 Allergy status to penicillin; F32.A Depression, unspecified; E11.319 Type 2 diabetes mellitus with unspecified diabetic retinopathy without macular edema; J44.9 Chronic obstructive pulmonary disease, unspecified; I10 Essential (primary) hypertension; K59.00 Constipation, unspecified

== ENCOUNTER 2024-08-08 16:42 | Inpatient (IN) ==
[2024-08-08] MEDS: LACTATED RINGER'S 1,000 ML IV ONE (17:00)
[2024-08-08 17:36] LABS: Basophils # (auto) 0.05 K/uL (0.00-0.20); Basophils % (auto) 0.5 %; Eosinophils # (auto) 0.06 K/uL (0.00-0.50); Eosinophils % (auto) 0.6 %; Hemoglobin 10.5 g/dl (14.0-18.0); Immature Granulocytes # (auto) 0.04 K/uL (0.01-0.20); Immature Granulocytes % (auto) 0.4 %; Lymphocytes # (auto) 1.16 K/uL (1.20-3.40); Lymphocytes % (auto) 10.9 %; Mean Corpuscular Hemoglobin 28.5 pg (25.0-34.0); Mean Corpuscular Hgb Conc 33.9 g/dL (32.0-36.0); Mean Platelet Volume 9.5 fL (9.4-12.4); Monocytes # (auto) 0.48 K/uL (0.11-0.59); Monocytes % (auto) 4.5 %; Neutrophils # (auto) 8.85 K/uL (1.40-6.50); Neutrophils % (auto) 83.1 %; Platelet Count 342 K/uL (130-400); RDW Coefficient of Variation 12.6 % (11.5-14.5); RDW Standard Deviation 38.4 fL (36.4-46.3); Red Blood Count 3.69 M/uL (4.70-6.10); White Blood Count 10.64 K/ul (4.8-10.8)
[2024-08-08 17:57] LABS: Albumin Globulin Ratio 1.2 (0.9-2); Albumin Level 4.5 gm/dl (3.4-5.0); BUN Creatinine Ratio 21.2 (10-20); Bilirubin,Total 0.4 mg/dl (0.2-1.0); Calcium 10.3 mg/dl (8.6-10.3); Creatinine Clr Calc Pharmacy 28.2 ml/min; Globulin 3.8 gm/dl (2.5-4.0); Magnesium 2.2 mg/dl (1.7-2.4); Potassium 4.6 mmol/L (3.5-5.1); Total Protein 8.3 gm/dl (6.0-8.3)
[2024-08-08 18:02] LABS: Troponin I High Sensitivity 31.1 pg/ml (0-20)
[2024-08-08 18:07] LABS: INR 0.9 (0.9-1.1); Prothrombin Time 10.1 Seconds (9.0-12.0)
[2024-08-08] MEDS: MoRPHine SULFATE 4 MG/ML 1 ML CARP\\VIAL IV STA (18:29)
[2024-08-08] MEDS: PANTOprazole 40 MG/10 ML SYR IV ONE (18:30)
[2024-08-08] MEDS: METOCLOPRAMIDE HCL INJ 5 MG/ML 2 ML VIAL IV ONE (18:30)
--- NOTE | 2024-08-08 18:34 | XRay Report ---
Chest radiograph, abdomen, one view History: Chest pain Comparison: Findings: There is a nonspecific paucity of bowel gas. Otherwise no evidence for obstruction. Small amount of air in the stomach. No pneumatosis or portal venous gas. No visualized calcifications overlying the abdomen. No focal consolidation or pleural effusion. No pneumothorax. The cardiomediastinal silhouette is within normal limits. Normal pulmonary vascularity. No evidence for lymphadenopathy. No visualized bony or soft tissue abnormality. Impression: Normal chest radiograph. Nonspecific paucity of bowel gas, otherwise without evidence for obstruction. Electronically signed by Quinn Combs 08-08-2024 6:34 PM
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
[2024-08-08] MEDS: FAMOTIDINE 20MG IV PUSH 20 MG/5 ML SYR IV STA (19:35)
[2024-08-08] MEDS: ONDANSETRON INJ 2 MG/ML 2 ML VIAL IV STA (19:35)
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
[2024-08-08] MEDS ORDERED: GLUCAGON FOR INJ 1 MG VIAL SQ PRN (21:59)
[2024-08-08] MEDS ORDERED: GLUCOSE 40% GEL 15 GM TUBE PO PRN (21:59)
[2024-08-08] MEDS ORDERED: GLUCOSE 10 TAB/TUBE PO PRN (21:59)
[2024-08-08] MEDS ORDERED: ALUMINUM/MAGNESIUM SUSP 30 ML UDC PO PRN (21:59)
[2024-08-08] MEDS ORDERED: CARBOHYDRATES FOR HYPOGLYCEMIA PO PRN (21:59)
[2024-08-08] MEDS ORDERED: DEXTROSE 50% 50 ML SYRINGE IV PRN (21:59)
[2024-08-08] MEDS: LACTATED RINGER'S 1,000 ML IV SCH (22:36)
[2024-08-08] MEDS: PANTOprazole 40 MG TAB PO SCH (22:37)
[2024-08-08] MEDS: SUCRALFATE 1 GM TAB PO SCH (22:37)
[2024-08-08] MEDS: oxyCODONE HCL IR 5 MG TAB (IMMEDIATE RELEASE) PO PRN (22:40)
[2024-08-08] MEDS: INSULIN ASPART PER UNIT CHARGE SC SCH (22:44)
[2024-08-09 06:00] LABS: Appearance Urine Clear (Clear); Bacteria Urine Automated None Seen (None Seen); Bilirubin Urine Negative (Negative); Blood Urine 1+ (Negative); Cast Urine Automated 0-2 /lpf (0-2); Color Urine Yellow; Epithelial Cell Urine Auto 0-2 /hpf (0-2); Glucose Urine UA 2+ (Negative); Ketones Urine Negative (Negative); Leukocyte Esterase Urine Negative (Negative); Nitrite Urine Negative (Negative); Protein Urine 2+ (Negative); RBC Urine Automated 0-2 /hpf (0-2); Specific Gravity Urine 1.016 (1.000-1.030); Urobilinogen Urine Negative (Negative); WBC Urine Automated 0-5 /hpf (0-5); pH Urine 6.5 (4.5-7.5)
[2024-08-09] MEDS: lisinopril 5 MG TAB PO SCH (07:18)
[2024-08-09] MEDS: METOCLOPRAMIDE HCL 5 MG TABLET PO SCH (07:18)
[2024-08-09 07:19] LABS: Hematocrit (blood only) 28.9 % (42.0-52.0); Hemoglobin 9.8 g/dl (14.0-18.0); Mean Corpuscular Hemoglobin 28.6 pg (25.0-34.0); Mean Corpuscular Hgb Conc 33.9 g/dL (32.0-36.0); Mean Corpuscular Volume 84.3 fL (80.0-100.0); Mean Platelet Volume 9.3 fL (9.4-12.4); Platelet Count 310 K/uL (130-400); RDW Coefficient of Variation 12.1 % (11.5-14.5); Red Blood Count 3.43 M/uL (4.70-6.10); White Blood Count 11.88 K/ul (4.8-10.8)
[2024-08-09] MEDS ORDERED: ERYTHROMYCIN 250 MG TABEC PO SCH (07:30)
[2024-08-09 07:45] LABS: BUN Creatinine Ratio 19.7 (10-20); Calcium 9.4 mg/dl (8.6-10.3); Creatinine Clr Calc Pharmacy 33.7 ml/min; Potassium 3.9 mmol/L (3.5-5.1)
[2024-08-09 07:59] LABS: Troponin I High Sensitivity 57.7 pg/ml (0-20)
[2024-08-09] MEDS: ONDANSETRON INJ 2 MG/ML 2 ML VIAL IV PRN (08:26)
[2024-08-09] MEDS: ACETAMINOPHEN 325 MG TAB PO PRN (08:27)
[2024-08-09] MEDS: LANTUS PER UNIT CHARGE SQ SCH (08:32)
[2024-08-09] MEDS: hydrALAZINE HCL 20 MG/ML VIAL IV STA (08:59)
[2024-08-09] MEDS: ERYTHROMYCIN DELAYED RELEASE 250 MG CAP PO SCH (09:09)
--- NOTE | 2024-08-09 13:20 | Hospitalist Progress Note ---
Date of Service August 09, 2024 Assessment & Plan (1) Nausea & vomiting: (2) Gastroparesis: (3) Renal insufficiency: (4) Elevated troponin: (5) DM2 (diabetes mellitus, type 2): Plan 53-year-old male PMHx T2DM, gastroparesis, bipolar disorder, PTSD, HTN, HLD, history of ischemic colitis, now with ostomy, and gastritis presenting for vomiting x 2 weeks. Went to see his PCP who asked him to come to the ER for evaluation for possible SBO #Intractable nausea/vomiting/Dehydration/Gastroparesis Patient with history of T2DM, gastroparesis, and prior ischemic colitis (04/06/2024) and volvulus s/p RLQ ileostomy. Seen by PCP day of arrival who encouraged him to come to ED. CT abd did not show any evidence of SBO Ostomy in place, putting out liquid despite decreased oral intake. On Metoclopramide, ondansetron, pantoprazole, and sucralfate at home. Had EGD recently, which showed evidence of gastritis, also has a hx of gastroparesis Continue Clear liquid diet and advance as tolerated Chronic Lumbar Radiculopathy Follows with pain mgt Bipolar Disorder Stopped all his previous medicines #Renal insufficiency TAYA Most likely prerenal Some improvement in Cr following IV saline monitor bmp HTN Poorly controlled Resume his home Lisinopril may add amlodipine if still not under good control #Elevated troponin No current chest pain. - Troponin 31.1, pending repeat - EKG sinus tachycardia at 103 bpm without ischemic changes - Likely 2/2 demand ischemia #T2DM H/o DMT2, at home regimen includes glargine 25 units at night, and aspart sliding scale. - Most recent A1C 04/2024 at 9% - Glucose on arrival 253 -- pt has not been taking his insulin, states it makes him sick - SSI with target BSG range 110-140mg/dL, CF 30, carb ratio 10 - Lantus 13U BID - BSG ACHS - Adjust regimen as needed #HTN- Lisinopril - continue #Pain- Baclofen, gabapentin, oxycodone - Continue Dispo: Obs, med/sx VTE prophylaxis: SCDs Disposition: hopefully d/c in the next 24 -48hrs Admission and Anticipated Discharge Date Admission Date: August 09, 2024 Subjective patient seen and examined, still has a lot of pains all over Results & Data Results & Data Vital Signs (Past 12 Hours) Vital Signs Temp Pulse Pulse Resp BP BP Pulse Ox 08/09/24 11:06 98.1 F 109 H 20 175/84 H 97 08/09/24 09:52 162/76 H 08/09/24 08:23 209/106 H 196/101 H 08/09/24 07:30 08/09/24 07:17 98.1 F 111 H 18 207/96 H 98 08/09/24 06:56 105 H 08/09/24 04:00 98.1 F 106 H 20 192/101 H 97 O2 Del Method 08/09/24 11:06 Room Air 08/09/24 09:52 08/09/24 08:23 08/09/24 07:30 Room Air 08/09/24 07:17 Room Air 08/09/24 06:56 08/09/24 04:00 Room Air PG Care Time/CCT Total # of Minutes Spent Total Time Spent with Patient: Total time spent is greater than 50% in coordination of care (as documented) at patient's floor/unit and/or counseling patient: Coding Level of Care Code 47039 SUB INP/OBS CARE 2/35MIN Diagnoses Nausea & vomiting R11.2 Gastroparesis K31.84 Renal insufficiency N28.9 Elevated troponin R79.89 DM2 (diabetes mellitus, type 2) E11.9 Time Spent (min) 35
[2024-08-09] MEDS: amLODIPine BESYLATE 5 MG TAB PO ONE (13:42)
--- NOTE | 2024-08-09 16:03 | XRay Report ---
XR foot RT min 3V routine CLINICAL HISTORY: right foot pain COMPARISON: None FINDINGS: There are atherosclerotic calcifications. No fracture or dislocation. No significant degen erative change. No evidence of osteomyelitis. No radiopaque foreign body. IMPRESSION: No acute findings. ACT 112: Negative or not required by law. Electronically signed by: Robert Bullock M.D. 08/09/2024 4:01 PM
--- NOTE | 2024-08-09 16:34 | Electrocardiogram Report ---
Test Reason : Blood Pressure : */* mmHG Vent. Rate : 103 BPM Atrial Rate : 103 BPM P-R Int : 172 ms QRS Dur : 90 ms QT Int : 332 ms P-R-T Axes : 52 47 49 degrees QTcB Int : 434 ms Sinus tachycardia Otherwise normal ECG When compared with ECG of 07-Dec-2023 06:13, No significant change was found Confirmed by Albaro Arevalo ([id number]) on 08/09/2024 4:33:51 PM Referred By: Confirmed By: Albaro Arevalo
[2024-08-10] MEDS: BACLOFEN 10 MG TAB PO PRN (00:30)
[2024-08-10] MEDS: amLODIPine BESYLATE 5 MG TAB PO SCH (08:06)
[2024-08-10 08:12] LABS: Hematocrit (blood only) 29.8 % (42.0-52.0); Hemoglobin 10.4 g/dl (14.0-18.0); Mean Corpuscular Hemoglobin 29.2 pg (25.0-34.0); Mean Corpuscular Hgb Conc 34.9 g/dL (32.0-36.0); Mean Corpuscular Volume 83.7 fL (80.0-100.0); Mean Platelet Volume 9.2 fL (9.4-12.4); Platelet Count 296 K/uL (130-400); RDW Standard Deviation 36.5 fL (36.4-46.3); Red Blood Count 3.56 M/uL (4.70-6.10); White Blood Count 11.14 K/ul (4.8-10.8)
[2024-08-10 08:36] LABS: BUN Creatinine Ratio 14.6 (10-20); Creatinine Clr Calc Pharmacy 41.7 ml/min; Potassium 3.9 mmol/L (3.5-5.1)
[2024-08-10] MEDS: METOCLOPRAMIDE HCL INJ 5 MG/ML 2 ML VIAL IV SCH (08:57)
[2024-08-10] MEDS: METOPROLOL TARTRATE 50 MG TAB PO SCH (08:57)
[2024-08-10 09:22] LABS: T4 Free Thyroxine 1.4 ng/dl (0.61-1.60)
--- NOTE | 2024-08-10 11:44 | Hospitalist Progress Note ---
Date of Service August 10, 2024 Assessment & Plan (1) Nausea & vomiting: Plan: Vomiting has stopped. He still has intermittent nausea. Parenteral Reglan every 6 hours ordered. Continue IV fluids. Supportive care (2) Gastroparesis: Plan: Possible cause of nausea and vomiting. Parenteral Reglan every 6 hours scheduled dosing has been started. (3) Renal insufficiency: Plan: Acute kidney injury present on admission. Creatinine has improved from 2.9 down to 1.8. Baseline appears to be around 1.1. Continue IV fluids. Monitor intake and output. Serial labs (4) Elevated troponin: Plan: No evidence of acute coronary syndrome. No chest pain. No acute EKG changes (5) DM2 (diabetes mellitus, type 2): Plan: Glucose 116 this morning, August 10. Continue basal insulin therapy. Sliding scale coverage. Plan Hopeful discharge to home within the next day or 2 Admission and Anticipated Discharge Date Admission Date: August 09, 2024 Subjective Alert and oriented. No distress. Creatinine is trending down now to 1.8. Lisinopril has been discontinued and he has been started on metoprolol. Scheduled dosing of parenteral Reglan has been ordered. Thyroid profile ordered and pending. Glucose 116 this morning, August 10. Review of Systems 2 Review of Systems: Constitutionalno fever or chills ENTno blurred vision, no double vision, no epistaxis, no sore throat Respiratoryno cough, no wheezing, no shortness of breath Cardiacno palpitations, no chest pain, no syncope GIintermittent nausea but vomiting has stopped. Denies diarrhea, melena, hematochezia GUno urinary retention, no urinary incontinence, no dysuria, no hematuria Musculoskeletalno joint pain, no muscle tenderness Skinno bruising, no rashes, no pruritus Neurono isolated weakness, no paresthesia, no weakness Psychno depression, no anxiety Physical Exam 2 Physical Exam: General-alert and oriented x3, no fever, no chills HEENT-head atraumatic and normocephalic, pupils equal and reactive to light, extraocular muscles intact Neck-no lymphadenopathy or thyromegaly, trachea midline Chest-clear to auscultation. No rales, wheezing or rhonchi Cardiac-mildly tachycardic regular rhythm, normal S1 and S2 Abdomen-normal bowel sounds, no hepatosplenomegaly Extremities-no cyanosis, clubbing, or edema Neuro-cranial nerves II through XII intact, motor and sensory function within normal limits, strength symmetrical, no focal deficits Psych-normal affect, normal mood Results & Data Results & Data Vital Signs (Past 12 Hours) Vital Signs Temp Pulse Pulse Resp BP BP Pulse Ox 08/10/24 08:12 08/10/24 07:49 36.7 C 122 H 20 155/79 H 107 H 08/10/24 07:22 105 H 08/10/24 04:59 36.7 C 102 H 20 169/84 H 97 08/10/24 00:18 36.8 C 112 H 20 178/97 H 95 08/10/24 00:01 36.8 C 112 H 20 178/97 H 95 O2 Del Method 08/10/24 08:12 Room Air 08/10/24 07:49 Room Air 08/10/24 07:22 08/10/24 04:59 Room Air 08/10/24 00:18 Room Air 08/10/24 00:01 Room Air Laboratory Results 08/10/24 07:45 08/10/24 07:45 PG Care Time/CCT Total # of Minutes Spent Total Time Spent with Patient: Total time spent is greater than 50% in coordination of care (as documented) at patient's floor/unit and/or counseling patient: Coding Level of Care Code 89667 SUB INP/OBS CARE 3/50MIN Diagnoses Nausea & vomiting R11.2 Gastroparesis K31.84 Renal insufficiency N28.9 Elevated troponin R79.89 DM2 (diabetes mellitus, type 2) E11.9
[2024-08-10] MEDS: oxyCODONE HCL IR 5 MG TAB (IMMEDIATE RELEASE) PO PRN (12:13)
[2024-08-11 07:20] LABS: BUN Creatinine Ratio 13.1 (10-20); Creatinine Clr Calc Pharmacy 44.1 ml/min; Potassium 3.9 mmol/L (3.5-5.1)
--- NOTE | 2024-08-11 22:38 | Hospitalist Progress Note ---
Date of Service August 11, 2024 Assessment & Plan (1) Nausea & vomiting: Plan: Vomiting has stopped. He still has intermittent nausea. Parenteral Reglan every 6 hours ordered. Will try to advance diet. Continue IVF for now. Supportive care (2) Gastroparesis: Plan: Possible cause of nausea and vomiting. Parenteral Reglan every 6 hours scheduled dosing has been started. (3) Renal insufficiency: Plan: Acute kidney injury present on admission. Creatinine has improved from 2.9 down to 1.8. Baseline appears to be around 1.1. Continue IV fluids. Monitor intake and output. Serial labs (4) Elevated troponin: Plan: No evidence of acute coronary syndrome. No chest pain. No acute EKG changes (5) DM2 (diabetes mellitus, type 2): Plan: Glucose 116 this morning, August 10. Continue basal insulin therapy. Sliding scale coverage. Chronic Neck pain: reviewed past images, does have signs of DJD of C6-C7, he may benefit from seeing a ortho spine probably in the outpatient setting. Plan Hopeful discharge to home within the next day or 2 Admission and Anticipated Discharge Date Admission Date: August 09, 2024 Subjective Patient reporting some neck pain. He states this is chronic. Review of Systems Review of Systems: All systems reviewed & are unremarkable except as noted in HPI & below Physical Exam Physical Exam: General-alert and oriented x3, no fever, no chills HEENT-head atraumatic and normocephalic Neck-no lymphadenopathy or thyromegaly, trachea midline Chest-clear to auscultation. No rales, wheezing or rhonchi Cardiac-mildly tachycardic regular rhythm, normal S1 and S2 Abdomen-normal bowel sounds, no hepatosplenomegaly Extremities-no cyanosis, clubbing, or edema Psych-normal affect, normal mood Results & Data Results & Data Vital Signs (Past 12 Hours) Vital Signs Temp Pulse Pulse Resp BP Pulse Ox Pulse Ox 08/11/24 21:00 98 08/11/24 19:30 36.7 C 94 H 18 138/71 97 08/11/24 15:50 36.7 C 91 H 16 160/79 H 98 08/11/24 14:45 85 08/11/24 11:35 36.5 C 90 18 148/82 H 99 08/11/24 11:05 O2 Del Method O2 Del Method 08/11/24 21:00 Room Air 08/11/24 19:30 Room Air 08/11/24 15:50 Room Air 08/11/24 14:45 08/11/24 11:35 Room Air 08/11/24 11:05 Room Air PG Care Time/CCT Total # of Minutes Spent Total Time Spent with Patient: Total time spent is greater than 50% in coordination of care (as documented) at patient's floor/unit and/or counseling patient: Coding Level of Care Code 31208 SUB INP/OBS CARE 3/50MIN Diagnoses Nausea & vomiting R11.2 Gastroparesis K31.84 Renal insufficiency N28.9 Elevated troponin R79.89 DM2 (diabetes mellitus, type 2) E11.9
[2024-08-12] MEDS: MELATONIN 3 MG TAB PO PRN (02:32)
[2024-08-12] MEDS: ONDANSETRON 4 MG OD TAB PO PRN (06:38)
[2024-08-12 06:51] LABS: BUN Creatinine Ratio 11.8 (10-20); Calcium 8.8 mg/dl (8.6-10.3); Creatinine Clr Calc Pharmacy 39.1 ml/min; Magnesium 1.5 mg/dl (1.7-2.4); Phosphorus 2.8 mg/dl (2.5-4.9); Potassium 3.8 mmol/L (3.5-5.1)
[2024-08-12 07:42] VITALS: TEMP 98.2
[2024-08-12] MEDS: CAPSAICIN CR 0.075% 60 GM TUBE EXT PRN (09:16)
[2024-08-12 11:20] VITALS: BP 120/63; RESP 16; O2SAT 99
[2024-08-12 14:06] VITALS: PULSE 84
--- NOTE | 2024-08-12 14:48 | Discharge Summary ---
Discharge Summary Date of Service August 12, 2024 Principal Dx & Hospital Course #1 = Principal Diagnosis (1) Nausea & vomiting: Vomiting has stopped. Nausea improved with Parenteral Reglan every 6 hours. WIll recommend continuing with 10 mg QID. Explained that this should be contiued for less than 12 weeks to limit risk of tardive dyskinesia Supportive care. (2) Gastroparesis: Possible cause of nausea and vomiting. Parenteral Reglan every 6 hours scheduled dosing has been started. (3) Renal insufficiency: Acute kidney injury present on admission. Creatinine has improved from 2.9 down to 1.8. Baseline appears to be around 1.1. Continue IV fluids. Monitor intake and output. Serial labs (4) Elevated troponin: No evidence of acute coronary syndrome. No chest pain. No acute EKG changes (5) DM2 (diabetes mellitus, type 2): Glucose 116 this morning, August 10. Continue basal insulin therapy. Sliding scale coverage. Chronic Neck pain: reviewed past images, does have signs of DJD of C6-C7, he may benefit from seeing a ortho spine probably in the outpatient setting. Admission HPI Per Admitting Provider 53-year-old male PMHx/PE, T2DM, gastroparesis, bipolar disorder, PTSD, HTN, HLD, history of ischemic colitis, now with ostomy, and gastritis presenting for vomiting x 2 weeks. Patient states that 2 weeks [employer], he started to have vomiting that was multiple times per day, mainly bile coming up. States that it was yellow-greenish. He did not notice any blood. He states that it does vary at times, but that it has been every day. He does have belly pain near his ostomy site, describes it as a stabbing pain and rating it a 6 out of 10 on the pain scale 10 being the worst pain. He also has back and leg pain that has been chronic and remains bothersome to him. He did miss his pain management appointment earlier in the week. He has been taking his oxycodone, which does not provide much relief. Since he has been unable to tolerate much oral intake, he does feel dizzy when he stands. He becomes nauseous whenever he is standing in the abdominal pain is present then. He did have slightly increased amount of stool in his ostomy on the day of arrival as well as an episode of diaphoresis, but no fever or chills. He has not been taking his insulin because he has not been eating. Only other complaint is that he occasionally gets SOB with exertion, not at rest and no cough. Patient does not have any known exposure to others with same symptoms, stating his only exposure was his friend who is "walking pneumonia." He has not had something severe happen before. He is shaking at times in the bed, states that this occurs never he gets very anxious because he does not like the hospital setting. No chest pain, palpitations, numbness/tingling, fever/chills, URI symptoms, LUTS, weakness, or syncope. ED evaluation reveals no leukocytosis, H&H 10.5/; PT/INR WNL; CMP creatinine 2.97, BUN 63, ratio 21.2; glucose 253, AST 9; troponin 31.1; lipase 34; chest abdomen XR WNL, nonspecific paucity of bowel gas; EKG sinus tachycardia at 103 bpm.; Provided with pantoprazole 40 mg IV, Zofran 4 mg IV, morphine 4 mg IV, metoclopramide 5 mgs IV, LR 1 L, and famotidine 20 mg IV in ED. Please see Dr. Davies's attestation for adjustments/additions to treatment plan. Discharge Exam General-alert and oriented x3, no fever, no chills HEENT-head atraumatic and normocephalic Neck-no lymphadenopathy or thyromegaly, trachea midline Chest-clear to auscultation. No rales, wheezing or rhonchi Cardiac-mildly tachycardic regular rhythm, normal S1 and S2 Abdomen-normal bowel sounds, no hepatosplenomegaly Extremities-no cyanosis, clubbing, or edema Psych-normal affect, normal mood Discharge Plan Discharge Items Patient Disposition: Home - Self-Care Reason For Visit: INTRACTABLE N/V, TAYA Discharge Diagnosis: Intractable N/V Condition on Discharge: Fair Activity: Resume your previous activity Non-emergency contact: Primary Care Provider Call non-emergency contact if: you have any medication questions Follow-up/Referrals: Doni Paul DO [Primary Care Provider] - 08/22/24 9:30 am Diet: Carb Consistent or DM2 Addtl Attending Provider Instructions: Recommend followup with PCP in 1-2 weeks. Recommend followup with GI. Recommend followup with ortho spine to evaluate your neck pain. Recommend increasing your reglan to 10 mg but will limit this increase to less than 12 weeks due to side effects like tardive kinesia. Tardive dyskinesia is a condition where your body makes movements you cant control like twitching, lip-smacking, blinking a lot, or moving your arms or legs without meaning to. Pending Studies at Discharge: No Stand-Alone Forms: My [facility] Heart Metabolics, Smoking Cessation Medications and DC Order Prescriptions: New amlodipine [Norvasc] 5 mg Tablet 5 mg PO QAM Qty: 30 0RF metoprolol succinate 100 mg tablet extended release 24 hr 100 mg PO PM Qty: 30 0RF Continued oxycodone 5 mg tablet 5 mg PO Q8H PRN (Reason: pain) Patient Comments: CONFIRMED W/ PT AND ON [facility] DC SUMMARY 06/30 baclofen 10 mg tablet See Rx Instructions .ROUTE .COMPLEX Qty: 30 2RF Dose Instruction: TAKE 1 TAB orally three times a day As Needed for muscle spasm Rx Instructions: TAKE 1 TAB orally three times a day As Needed for muscle spasm insulin aspart U-100 [Novolog FlexPen U-100 Insulin] 100 unit/mL (3 mL) insulin pen 1 sliding scale dose subcut USEASDIRECTD Qty: 15 0RF Rx Instructions: inject before meals and before bedtime per scale. for blood sugar 150-200, 2 units; 201-250, 4 units; 251-300, 6 units; >300, call office. sucralfate [Carafate] 1 gram tablet 1 g PO BID Qty: 60 2RF (DME) ostomy supplies Misc See Rx Instructions .Route Qty: 100 3RF Rx Instructions: Convatec MICAH-FIT Natura Durahesive Skin Barrier 2 1/4" [Reference # [id number]] [place] [place] ostomy [place] Misc See Rx Instructions .Route Qty: 60 3RF Rx Instructions: Convatec Natura Drainable Pouch 2 1/4" 3 month supply (DME) ostomy supplies Misc See Rx Instructions .Route Qty: 100 3RF Rx Instructions: Convatec Goran Cohesive Seals (DME) Ostomy Belt Large Misc See Rx Instructions .Route Qty: 1 0RF Rx Instructions: As directed ondansetron 4 mg tablet,disintegrating 4 mg PO TID PRN (Reason: nausea and vomiting) 90 Days Qty: 270 3RF (DME) pen needle, diabetic 32 gauge x 1/4" needle See Rx Instructions .Route Qty: 100 2RF Rx Instructions: As directed (DME) OneTouch Verio test strips Strip See Rx Instructions .Route Qty: 100 3RF Rx Instructions: As directed insulin glargine [Lantus Solostar U-100 Insulin] 100 unit/mL (3 mL) insulin pen 25 unit subcut QPM Qty: 15 6RF (DME) FreeStyle Joey 3 [place] Misc See Rx Instructions .Route Qty: 1 0RF Rx Instructions: Scan 3 times daily and as needed (DME) FreeStyle Joey 3 Plus Sensor Device See Rx Instructions .Route Qty: 2 6RF Rx Instructions: Change sensor every 15 days pantoprazole 40 mg tablet,delayed release (DR/EC) 40 mg PO BID 90 Days Qty: 180 3RF Changed metoclopramide HCl [Reglan] 10 mg tablet 10 mg PO AC Qty: 120 0RF Patient Comments: CONFIRMED W/ PT AND ON [facility] DC SUMMARY 06/30 Rx Instructions: 5 mg orally W/ MEALS; will need to taper before 12 week pablo Discontinued lisinopril 5 mg tablet 5 mg PO DAILY Qty: 90 3RF Discharge Orders: Discharge Order (Routine); Ordered 08/12/24 Ordered By: Mesfin Varela Admission Data Admit Date/Time: 08/09/24 12:29 Attending Provider: Mesfin Varela Admit Provider: Doni Davies Primary Care Provider: Doni Paul Other Providers: Doni Davies Other Interventions: Discharge Summary Assessment (RN) Last Done: 08/12/24 14:29 Hospital Stay Data Consultations 08/08/24 19:34 ED Decision to Admit Stat Pending Results Patient Have Any Pending Studies at Discharge: No Discharge Instructions Given to Patient (Per Discharging Provider) Recommend followup with PCP in 1-2 weeks. Recommend followup with GI. Recommend followup with ortho spine to evaluate your neck pain. Recommend increasing your reglan to 10 mg but will limit this increase to less than 12 weeks due to side effects like tardive kinesia. Tardive dyskinesia is a condition where your body makes movements you cant control like twitching, lip-smacking, blinking a lot, or moving your arms or legs without meaning to. Total Time Total Time Spent Total Time Spent (In Minutes): 32 Coding Level of Care Code 33737 INP/OBS DISCH >30 MIN Diagnoses Nausea & vomiting R11.2 Gastroparesis K31.84 Renal insufficiency N28.9 Elevated troponin R79.89 DM2 (diabetes mellitus, type 2) E11.9
== END 2024-08-12 14:55 | disposition home or self-care (01) | DRG 74 ==
LOC: 2N 16:42 → ED 16:42 → SUATTDRO 20:03 → 2N 21:37 → SUATTDRO 08-09 12:29